=== PATIENT | female | born 1995 | race Caucasian/White ===

== ENCOUNTER 2018-01-25 12:00 | Emergency (ER) | payer SELFPAY ==
[~2018-01-25 12:00] MED LIST: ACET500C13 PO; BACL20TA PO; CEPH500C PO; FAMO20TA5 PO; LISD40CA3 PO; LORA10TA56 PO; PRED20TA PO; SERT50TA PO; TRM50T PO
--- OUTSIDE RECORDS SUMMARY | 2018-01-26 16:17 | XMS REPORT ---
Author Author MELINA THOMAS Organization [facility] Address [address] [place] [address] Care Team Providers Care Plant Engineering Supervisor Name Role Phone MELINA THOMAS Unavailable PROBLEMS Unknown Problems ALLERGIES Substance Reaction Event Type Date Status Latex Gloves rash Drug Allergy Jul, Active SOCIAL HISTORY No smoking Hx information available PLAN OF CARE Activity Details Follow Up 1 Year Reason:WWE VITAL SIGNS Height 60 in 2016-07-24 Weight 125.7 lbs 2016-07-24 Temperature 98.6 degrees Fahrenheit 2016-07-24 Heart Rate 91 bpm 2016-07-24 Respiratory Rate 20 2016-07-24 BMI 24.55 kg/m2 2016-07-24 Blood pressure systolic 112 mmHg 2016-07-24 Blood pressure diastolic 60 mmHg 2016-07-24 MEDICATIONS Medication Instructions Dosage Frequency Start Date End Date Duration Status Diflucan 150 MG Orally x1, may repeat in 72 hrs if symptoms do not resolve 1 tablet Jul, 1 dose Active Probiotic Orally Once a day 1 cap 24h Active RESULTS Name Result Date Reference Range TRICHOMONAS (IN HOUSE) 2016-07-24 TRICHOMONAS negative Control + Lot # [id number] Exp date 03/2017 BACTERIAL VAGINOSIS (IN HOUSE) 2016-07-24 RESULTS negative Control Lot # [id number] Exp date 05/2019 CULTURE, GENITAL 2016-07-24 Genital Culture, Routine Final report Result 1 PDF Report 2016-07-24 PDF Report1 LCLS PAP TEST, HPV IF ASCUS 2016-07-24 DIAGNOSIS: Specimen adequacy: Clinician provided ICD10: Performed by: . . Pathologist provided ICD10: Note: . PROCEDURES Procedure Date Ordered Related Diagnosis Body Site SPECIMEN HANDLING Jul 24, 2016 BAUTISTA VAG, DNA, DIR PROBE Jul 24, 2016 No Charge Jul 24, 2016 TRICHOMONAS ASSAY W/OPTIC Jul 24, 2016 Preventive Care Est Pt. Age 18-39 Jul 24, 2016 CULTURE, BACTERIA, OTHER Jul 24, 2016 IMMUNIZATIONS No Known Immunizations
--- OUTSIDE RECORDS SUMMARY | 2018-01-26 16:17 | XMS REPORT ---
Author Author MELINA THOMAS [facility] eClinicalWorks Address Unknown Phone Unavailable Care Team Providers Care Senior Principal Software Engineer Name Role Phone MELINA THOMAS Unavailable Allergies No Known Allergies Problems No Known Problems Medications Medication Code System Code Instructions Start Date End Date Status Dosage Flagyl [facility] [address]-54 500 MG Orally 2 times a day Jul 31, 2016 Aug 07, 2016 1 tablet Results No Known Results Summary Purpose eClinicalWorks Submission
--- OUTSIDE RECORDS SUMMARY | 2018-01-26 16:17 | XMS REPORT | Continuity of Care Document ---
Author Author [facility] Organization [facility] Address Unknown Phone Unavailable Allergies Active Description Code Type Severity Reaction Onset Reported/Identified Relationship to Patient Clinical Status Yes No Known Drug Allergies [id number] Drug Allergy Unknown N/A 07/06/2010 Yes latex [id number] Drug Allergy Unknown N/A 10/07/2014 Medications There is no data. Problems Date Dx Coded Attending Type Code Diagnosis Diagnosed By 07/06/2010 Ot 842.10 07/06/2010 Ot 959.5 07/06/2010 Ot E000.8 07/06/2010 Ot E849.6 07/06/2010 Ot E928.8 12/08/2012 Ot 891.0 12/08/2012 Ot 924.11 12/08/2012 Ot E000.8 12/08/2012 Ot E849.0 12/08/2012 Ot E968.8 Procedures There is no data. Results There is no data. Encounters ACCT No. Visit Date/Time Discharge Status Pt. Type Provider Facility Loc./Unit Complaint [id number] 10/07/2014 12:51:00 10/07/2014 15:28:00 DIS Emergency JUDY BURT [facility] ER [id number] 12/08/2012 14:18:00 Document Registration [id number] 07/06/2010 10:15:00 Document Registration [id number] 12/04/2017 15:25:00 12/04/2017 23:59:59 CLS Outpatient [id number] 10/15/2014 09:34:27 ACT Document Registration
--- OUTSIDE RECORDS SUMMARY | 2018-01-26 16:17 | XMS REPORT ---
Author MELINA Perez [facility] eClinicalWorks Address Unknown Phone Unavailable Care Team Providers Care Shade Hanger Name Role Phone MELINA THOMAS CP Unavailable Allergies, Adverse Reactions, Alerts Substance Reaction Event Type Latex Gloves rash Drug Allergy Problems Problem Type Condition Code Onset Dates Condition Status Assessment Vaginal discharge N89.8 Active Assessment Screen for STD (sexually transmitted disease) Z11.3 Active Assessment Unprotected sexual intercourse Z72.51 Active Medications Medication Code System Code Instructions Start Date End Date Status Dosage Probiotic [facility] [address] Orally Once a day 1 cap Procedures Procedure Coding System Code Date TRICHOMONAS ASSAY W/OPTIC CPT-4 42211 Jul 05, 2016 CULTURE, BACTERIA, OTHER CPT-4 07027 Jul 05, 2016 URINE TEST CPT-4 47047 Jul 05, 2016 Office Visit, New Pt., Level 3 CPT-4 54291 Jul 05, 2016 No Charge CPT-4 22978 Jul 05, 2016 Vital Signs Date/Time: Jul 05, 2016 Cardiac Monitoring Heart Rate 76 bpm Weight 126.2 lbs Height 60 in BMI 24.64 Index Blood Pressure Diastolic 72 mmHg Blood Pressure Systolic 116 mmHg Results Name Result Date Reference Range Unit Abnormality Flag CULTURE, GENITAL ----Genital Culture, Routine Final report [id number] TEST, URINE (IN HOUSE) ----RESULTS negative [id number] ----Lot # [id number] ----Control + [id number] ----Exp date 20160705 TRICHOMONAS (IN HOUSE) ----Exp date 20160705 ----Control + [id number] ----Lot # [id number] ----TRICHOMONAS negative [id number] Summary Purpose eClinicalWorks Submission
== END 2018-01-25 12:55 | disposition left against medical advice (07) ==
LOC: EDUNIT# 12:00 → ER 12:02
DX: N94.9 Unspecified condition associated with female genital organs and menstrual cycle (principal)

== ENCOUNTER 2018-12-02 13:44 | Emergency (ER) | payer SELFPAY ==
[~2018-12-02] VITALS: Ht 149.9 cm; Wt 54.9 kg
--- NOTE | 2018-12-02 14:13 | ED GU-Female ---
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 PT IS HERE TODAY TO GET TESTED. PT DOES REPORT FOUL SMELLING DISCHARGE. Nursing Sepsis Screen: No Definite Risk Source: patient Exam Limitations: no limitations History of Present Illness Date Seen by Provider: Dec 02, 2018 Time Seen by Provider: 13:58 Initial Comments Patient presents to ER by private conveyance with chief complaint that her boyfriend of the last month has came to her telling her she might need to get checked out. She's been having for 3-4 days now a milky white frothy discharge. She says she's had malodor. In the past she's had gonorrhea. She recently moved down here from [place] and had a pelvic exam and Pap smear within the last 2 years. She said the results for Pap smear were normal. She has no allergies to antibiotics. No dysuria fevers chills abdominal pain or nausea. Allergies and Home Medications Allergies Coded Allergies: latex (Unverified Allergy, Unknown, 10/07/14) Home Medications Cephalexin Monohydrate 500 Mg Capsule, 1 EACH PO TID Prescribed by: JUDY REYNOLDS on 12/08/12 1544 Famotidine 20 Mg Tablet, 1 EACH PO BID Prescribed by: JUDY REYNOLDS on 10/07/14 1516 Prednisone 20 Mg Tablet, 40 MG PO DAILY Prescribed by: JUDY REYNOLDS on 10/07/14 1516 Tramadol Hcl 50 Mg Tab, 50 MG PO Q4H Prescribed by: JUDY REYNOLDS on 12/08/12 1544 Patient Home Medication List Home Medication List Reviewed: Yes Review of Systems Review of Systems Constitutional: No chills, No diaphoresis EENTM: No ear discharge, No ear pain Respiratory: No cough, No phlegm Gastrointestinal: No abdominal pain, No nausea, No vomiting Genitourinary: see HPI; denies burning; discharge; denies dysuria Musculoskeletal: No back pain, No joint pain Past Udrdlrw-Agzylx-Xscdib Hx Patient Social History Alcohol Use: Rarely Uses Recreational Drug Use: No Smoking Status: Current Everyday Smoker Type Used: Cigarettes Recent Foreign Travel: No Contact w/Someone Who Travel: No Recent Infectious Disease Expo: No Recent Hopitalizations: No Immunizations Up To Date Tetanus Booster (TDap): Less than 5yrs Seasonal Allergies Seasonal Allergies: No Past Medical History Surgeries: Yes Adenoidectomy, Tonsillectomy Respiratory: No Cardiac: No Neurological: No Reproductive Disorders: No Sexually Transmitted Disease: Yes (HX OF GONORRHEA) Genitourinary: No Gastrointestinal: No Musculoskeletal: No Endocrine: No HEENT: No Cancer: No Psychosocial: No Integumentary: No Blood Disorders: No Family Medical History No Pertinent Family Hx Physical Exam Vital Signs Vital Signs - First Documented 12/02/18 13:53 Temp 97.1 Pulse 100 Resp 16 B/P (MAP) 118/79 (92) Pulse Ox 99 Capillary Refill : Less Than 3 Seconds Height, Weight, BMI Height: 4'11.00" Weight: 121lbs. oz. 54.831280ok; BMI Method:Stated General Appearance: WD/WN, no apparent distress Cardiovascular: normal peripheral pulses, regular rate, rhythm Respiratory: no respiratory distress, no accessory muscle use Gastrointestinal: non tender, soft Pelvic: normal external exam, no masses, discharge (clear white milky, thin); No vaginal bleeding Progress/Results/Core Measures Suspected Sepsis Recent Fever Within 48 Hours: No Infection Criteria Present: None New/Unexplained Altered Menta: No Sepsis Screen: No Definite Risk SIRS Temperature:97.1 Pulse: 100 Respiratory Rate: 16 Blood Pressure 118 /79 Mean: 92 Results/Orders Lab Results Laboratory Tests Test 12/02/18 14:04 Range/Units Micro Results Microbiology 12/02/18 Wet Prep - Final, Complete My Orders Orders - JANIS CAMPBELL Wet Prep (12/02/18 14:04) Neisseria Gonorrhea Swab (12/02/18 14:04) Chlamydia Trachomatis Swab (12/02/18 14:04) Ceftriaxone For Im Use (Rocephin For Im (12/02/18 14:15) Azithromycin Tablet (Zithromax Tablet) (12/02/18 14:15) Lidocaine 1% Inj 20 Ml (Xylocaine 1% Inj (12/02/18 14:15) Medications Given in ED Current Medications Medications Dose Ordered Sig/Tripp Route Start Time Stop Time Status Last Admin Dose Admin Azithromycin 1,000 mg ONCE ONCE PO 12/02/18 14:15 12/02/18 14:17 DC 12/02/18 14:24 1,000 MG Ceftriaxone Sodium 250 mg ONCE ONCE IM 12/02/18 14:15 12/02/18 14:17 DC 12/02/18 14:28 250 MG Lidocaine HCl 0.9 ml ONCE ONCE INJ 12/02/18 14:15 12/02/18 14:17 DC 12/02/18 14:28 0.9 ML Vital Signs/I&O 12/02/18 13:53 Temp 97.1 Pulse 100 Resp 16 B/P (MAP) 118/79 (92) Pulse Ox 99 Capillary Refill : Less Than 3 Seconds Blood Pressure Mean: 92 Progress Note : Time: 14:13 Progress Note Plan to treat her with Rocephin and azithromycin. Wet prep and GC chlamydia. Departure Impression Primary Impression: Bacterial vaginitis Disposition: HOME, SELF-CARE Condition: Stable Departure-Patient Inst. Decision time for Depature: 14:36 Referrals: NO,LOCAL PHYSICIAN (PCP/Family) Primary Care Physician Patient Instructions: Bacterial Vaginosis (DC) Add. 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 We will call you if any of the other tests come back positive in the next 3-5 days. All discharge instructions reviewed with patient and/or family. Voiced understanding. Scripts Metronidazole (Metronidazole) 500 Mg Tablet 500 MG PO BID for 7 Days, #14 TAB 0 Refills Prov: JANIS CAMPBELL 12/02/18 JANIS CAMPBELL Dec 02, 2018 14:13
[2018-12-02] MEDS ORDERED: LIDOCAINE 1% INJ 20 ML 20 ML VIAL INJ ONE (14:15)
[2018-12-02] MEDS ORDERED: cefTRIAXone 250 MG/ML vial (IM ONLY) IM ONE (14:15)
[2018-12-02] MEDS ORDERED: AZITHROMYCIN 250 MG TAB (ZITHROMAX) PO ONE (14:15)
[2018-12-02] MEDS ORDERED: METR-145 PO (14:41)
[2018-12-02 14:43] VITALS: BP 118/79
== END 2018-12-02 14:43 | disposition home or self-care (01) ==
LOC: EDUNIT# 13:44 → ER 13:45
DX: N76.0 Acute vaginitis (principal); F17.210 Nicotine dependence, cigarettes, uncomplicated; Z90.89 Acquired absence of other organs; Z91.040 Latex allergy status
CPT/HCPCS: 36415; 87210; 87491; 87591; 99284

== ENCOUNTER 2019-01-05 13:09 | Emergency (ER) | payer SELFPAY ==
[~2019-01-05] VITALS: Ht 152.4 cm; Wt 54.4 kg
[~2019-01-05 13:09] MED LIST changes: +METR-145 PO
--- NOTE | 2019-01-05 13:35 | ED GU-Female ---
General Chief Complaint: HIDE STRETCHER HAND Stated Complaint: STD TESTING Nursing Triage Note: PT STATED SHE FEELS LIKE SHE NEEDS TESTED FOR STDS. PT STATES SHE HAS DISCHARGE THAT STARTED TWO DAYS AGO AND SLIGHT PAIN IN ABD. Nursing Sepsis Screen: No Definite Risk Source: patient Exam Limitations: no limitations History of Present Illness Date Seen by Provider: Jan 05, 2019 Time Seen by Provider: 13:30 Initial Comments To ER per private vehicle with reports of vaginal discharge and some slight suprapubic discomfort. She had sexual intercourse with her ex-boyfriend 2-3 days ago, states that he told her he had been tested and did not have any STD. She states she was here about a month ago for the same thing and would like to be treated for whatever she tested for then. Timing/Duration: just prior to arrival Severity/Quality: mild Location: suprapubic Activities at Onset: none Associated Symptoms: denies symptoms Allergies and Home Medications Allergies Coded Allergies: latex (Unverified Allergy, Unknown, 12/02/18) Home Medications Cephalexin Monohydrate 500 Mg Capsule, 1 EACH PO TID Prescribed by: JUDY REYNOLDS on 12/08/12 1544 Famotidine 20 Mg Tablet, 1 EACH PO BID Prescribed by: JUDY REYNOLDS on 10/07/14 1516 Metronidazole 500 Mg Tablet, 500 MG PO BID Prescribed by: JANIS CAMPBELL on 12/02/18 1441 Prednisone 20 Mg Tablet, 40 MG PO DAILY Prescribed by: JUDY REYNOLDS on 10/07/14 1516 Tramadol Hcl 50 Mg Tab, 50 MG PO Q4H Prescribed by: JUDY REYNOLDS on 12/08/12 1544 Patient Home Medication List Home Medication List Reviewed: Yes Review of Systems Review of Systems Constitutional: see HPI EENTM: see HPI Respiratory: no symptoms reported Cardiovascular: no symptoms reported Genitourinary: no symptoms reported Musculoskeletal: no symptoms reported Skin: no symptoms reported Psychiatric/Neurological: No Symptoms Reported Endocrine: No Symptoms Reported Hematologic/Lymphatic: No Symptoms Reported Past Fdpuvii-Astqij-Pgxffy Hx Patient Social History Alcohol Use: Denies Use Recreational Drug Use: No Smoking Status: Current Everyday Smoker Type Used: Cigarettes Recent Foreign Travel: No Contact w/Someone Who Travel: No Recent Infectious Disease Expo: No Recent Hopitalizations: No Immunizations Up To Date Tetanus Booster (TDap): Less than 5yrs Seasonal Allergies Seasonal Allergies: No Past Medical History Surgeries: Yes Adenoidectomy, Tonsillectomy Respiratory: No Cardiac: No Neurological: No Reproductive Disorders: No Sexually Transmitted Disease: Yes (HX OF GONORRHEA) Genitourinary: No Gastrointestinal: No Musculoskeletal: No Endocrine: No HEENT: No Cancer: No Psychosocial: No Integumentary: No Blood Disorders: No Family Medical History No Pertinent Family Hx Physical Exam Vital Signs Vital Signs - First Documented 01/05/19 13:13 Temp 98.9 Pulse 114 Resp 20 B/P (MAP) 101/75 (84) Pulse Ox 98 O2 Delivery Room Air Capillary Refill : Less Than 3 Seconds Height, Weight, BMI Height: 5'0" Weight: 120lbs. oz. 54.016754ev; BMI Method:Stated General Appearance: WD/WN, no apparent distress HEENT: PERRL/EOMI, normal ENT inspection Respiratory: normal breath sounds, no respiratory distress, no accessory muscle use Neurologic/Psychiatric: alert, normal mood/affect, oriented x 3 Skin: normal color, warm/dry Progress/Results/Core Measures Suspected Sepsis Recent Fever Within 48 Hours: No Infection Criteria Present: None New/Unexplained Altered Menta: No Sepsis Screen: No Definite Risk SIRS Temperature:98.9 Pulse: 114 Respiratory Rate: 20 Blood Pressure 101 /75 Mean: 84 Results/Orders Lab Results Laboratory Tests Test 01/05/19 13:30 01/05/19 13:45 Range/Units Micro Results Microbiology 01/05/19 Genital Culture, Resulted Pending 01/05/19 Wet Prep - Final, Resulted My Orders Orders - JORGE PURCELL APRN Ua Culture If Indicated (01/05/19 13:18) Urine Bedside (01/05/19 13:18) Wet Prep (01/05/19 13:18) Neisseria Gonorrhea Swab (01/05/19 13:18) Genital Culture (01/05/19 13:18) Chlamydia Trachomatis Swab (01/05/19 13:18) Azithromycin Tablet (Zithromax Tablet) (01/06/19 09:00) Ceftriaxone For Im Use (Rocephin For Im (01/05/19 14:30) Lidocaine 1% Inj 20 Ml (Xylocaine 1% Inj (01/05/19 14:30) Vital Signs/I&O 01/05/19 13:13 Temp 98.9 Pulse 114 Resp 20 B/P (MAP) 101/75 (84) Pulse Ox 98 O2 Delivery Room Air Capillary Refill : Less Than 3 Seconds Blood Pressure Mean: 84 Departure Communication (Admissions) 1332-patient is hostile during her stay, initially states she does not want a pelvic exam she just wants treatment for the STD. Advised her that I cannot treat her if I do not examine her. She states "I just want treatment and to get the fuck out of here, last time I was here it was fast, and I know they can do it". Refuses to allow pelvic exam, states that she will self swab. Discussed with her that after positive urine test was checked serum hCG level and ultrasound given that she has abdominal pain. She states that she does not want this done and she'll follow-up with [facility] to have this done outpatient. Impression Primary Impression: test positive Disposition: HOME, SELF-CARE Condition: Stable Departure-Patient Inst. Decision time for Depature: 13:54 Referrals: CANDY MCALLISTER MD NO,LOCAL PHYSICIAN (PCP) Primary Care Physician Patient Instructions: Sexually-Transmitted Diseases (DC) Add. Discharge Instructions: 1. Follow-up with [facility] to have labs and ultrasound done to further evaluate the . Return to ER any concerns such as lightheadedness pain or fever.. All discharge instructions reviewed with patient and/or family. Voiced understanding. JORGE PURCELL APRN Jan 05, 2019 13:35
--- NOTE | 2019-01-05 13:35 | NUR ---
PT SIGNED REFUSAL FOR PELVIC EXAM, REQUESTED TO DO SELF SWAB
--- NOTE | 2019-01-05 13:53 | NUR ---
PT INFORMED OF +PREG TEST, STATES PERIOD APPROX 1 MONTH AGO. STATES WILL GO TO [facility] FOR FOLLOW FOR FURTHER TESTING
[2019-01-05 14:00] LABS: BILIRUBIN,URINE NEGATIVE (NEGATIVE); CLARITY,URINE SLIGHTLY CLOUDY; COLOR,URINE YELLOW; GLUCOSE, URINE (UA) NEGATIVE (NEGATIVE); KETONES,URINE NEGATIVE (NEGATIVE); LEUKOCYTE ESTERASE ,URINE NEGATIVE (NEGATIVE); NITRITE,URINE NEGATIVE (NEGATIVE); PH,URINE 6 (5-9); PROTEIN,URINE NEGATIVE (NEGATIVE); UROBILINOGEN,URINE NORMAL (NORMAL)
[2019-01-05 14:22] LABS: AMORPHOUS SEDIMENT,UR FEW AMOR URATES /LPF; BACTERIA,URINE NEGATIVE /HPF; WBC,URINE 0-2 /HPF
[2019-01-05] MEDS ORDERED: AZITHROMYCIN 250 MG TAB (ZITHROMAX) PO ONE (14:24)
[2019-01-05] MEDS ORDERED: cefTRIAXone 1,000 MG/2.86 ml vial (IM ONLY) IM SCH (14:30)
[2019-01-05] MEDS ORDERED: LIDOCAINE 1% INJ 20 ML 20 ML VIAL INJ ONE (14:30)
[2019-01-05 14:35] VITALS: BP 101/75
[2019-01-06] MEDS ORDERED: AZITHROMYCIN 250 MG TAB (ZITHROMAX) PO SCH (09:00)
== END 2019-01-05 14:45 | disposition home or self-care (01) ==
LOC: EDUNIT# 13:09 → ER 13:10
DX: N89.8 Other specified noninflammatory disorders of vagina (principal); F17.210 Nicotine dependence, cigarettes, uncomplicated; Z32.01 Encounter for pregnancy test, result positive; Z90.89 Acquired absence of other organs; Z91.040 Latex allergy status; Z79.52 Long term (current) use of systemic steroids; Z86.19 Personal history of other infectious and parasitic diseases
CPT/HCPCS: 36415; 81000; 84703; 87070; 87077; 87205; 87210; 87491; 87591; 96372; 99284

== ENCOUNTER 2019-01-28 11:06 | Emergency (ER) | payer SELFPAY ==
[~2019-01-28] VITALS: Ht 152.4 cm; Wt 54.4 kg
[~2019-01-28 11:06] MED LIST changes: +METR500T PO
--- NOTE | 2019-01-28 11:19 | ED General ---
General Stated Complaint: DATES Source of Information: Patient Exam Limitations: No Limitations (SRIRAM HUDSON MD) History of Present Illness Date Seen by Provider: January 28, 2019 Time Seen by Provider: 11:16 Initial Comments Here with report of being and being concerned about dates. She is unable to get appointment with [facility] for several weeks. Denies abdominal pain, nausea, vomiting or other problems including vaginal discharge or bleeding. 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 Timing/Duration: Constant, Other (believes she is approximately 10 weeks ) Severity: Mild Associated Systoms: No Fever/Chills, No Nausea/Vomiting, No Shortness of Air (SRIRAM HUDSON MD) Allergies and Home Medications Allergies Coded Allergies: latex (Unverified Allergy, Unknown, 12/02/18) Home Medications Cephalexin Monohydrate 500 Mg Capsule, 1 EACH PO TID Prescribed by: JUDY REYNOLDS on 12/08/12 1544 Famotidine 20 Mg Tablet, 1 EACH PO BID Prescribed by: JUDY REYNOLDS on 10/07/14 1516 Metronidazole 500 Mg Tablet, 500 MG PO BID Prescribed by: JANIS CAMPBELL on 12/02/18 1441 Metronidazole 500 Mg Tablet, 500 MG PO BID, (Reported) Prednisone 20 Mg Tablet, 40 MG PO DAILY Prescribed by: JUDY REYNOLDS on 10/07/14 1516 Tramadol Hcl 50 Mg Tab, 50 MG PO Q4H Prescribed by: JUDY REYNOLDS on 12/08/12 1544 Patient Home Medication List Home Medication List Reviewed: Yes (SRIRAM HUDSON MD) Review of Systems Review of Systems Constitutional: see HPI; No chills, No fever Respiratory: no symptoms reported Cardiovascular: no symptoms reported Gastrointestinal: no symptoms reported : Yes Expected Date of Delivery: Sep 01, 2019 LMP: Nov 08, 2018 Musculoskeletal: no symptoms reported (SRIRAM HUDSON MD) Past Xoyvbdj-Ukqdyi-Uloaeu Hx Past Med/Social Hx: Reviewed Nursing Past Med/Soc Hx (SRIRAM HUDSON MD) Patient Social History Type Used: Cigarettes Recent Foreign Travel: No Contact w/Someone Who Travel: No Recent Hopitalizations: No (JORGE PURCELL APRN) Alcohol Use: Denies Use Recreational Drug Use: No Smoking Status: Current Everyday Smoker (SRIRAM HUDSON MD) Immunizations Up To Date Tetanus Booster (TDap): Less than 5yrs (JORGE PURCELL APRN) Seasonal Allergies Seasonal Allergies: No (JORGE PURCELL APRN) Past Medical History Surgeries: Yes Adenoidectomy, Tonsillectomy Respiratory: No Cardiac: No Neurological: No Reproductive Disorders: No Sexually Transmitted Disease: Yes (HX OF GONORRHEA) Genitourinary: No Gastrointestinal: No Musculoskeletal: No Endocrine: No HEENT: No Cancer: No Psychosocial: No Integumentary: No Blood Disorders: No (JORGE PURCELL APRN) Family Medical History Reviewed Nursing Family Hx (SRIRAM HUDSON MD) No Pertinent Family Hx (JORGE PURCELL APRN) Physical Exam Vital Signs Vital Signs - First Documented 01/28/19 11:20 Temp 97.6 Pulse 97 Resp 18 B/P (MAP) 118/77 (91) Pulse Ox 99 O2 Delivery Room Air (SRIRAM HUDSON MD) Vital Signs Capillary Refill : (JORGE PURCELL APRN) Height, Weight, BMI Height: 5'0" Weight: 120lbs. oz. 54.360402jf; BMI Method:Stated (JORGE PURCELL APRN) General Appearance: No Apparent Distress, WD/WN Respiratory: Chest Non Tender, Lungs Clear, Normal Breath Sounds Cardiovascular: Regular Rate, Rhythm, No Murmur Gastrointestinal: Non Tender, Soft Neurologic/Psychiatric: Alert, Oriented x3 Skin: Normal Color, Warm/Dry (SRIRAM HUDSON MD) Progress/Results/Core Measures Suspected Sepsis SIRS Temperature: Pulse: Respiratory Rate: Blood Pressure / Mean: (JORGE PURCELL APRN) Results/Orders Vital Signs/I&O 01/28/19 11:20 Temp 97.6 Pulse 97 Resp 18 B/P (MAP) 118/77 (91) Pulse Ox 99 O2 Delivery Room Air (SRIRAM HUDSON MD) Vital Signs/I&O Capillary Refill : (JORGE PURCELL APRN) Progress Note : Progress Note Seen and evaluated. Bedside ultrasound performed. That does show positive movement with heart tones of 165 and 9-3/7 by crown-rump length. This would make EDC of 09/01/19. Appointment made with [facility] and a copy of the chart will be sent to them. Discharged home with return precautions. Patient verbalize understanding instructions and agreement with plan. (SRIRAM HUDSON MD) Departure Impression Primary Impression: Qualified Codes: Z34.90 - Encounter for supervision of normal , unspecified, unspecified trimester Disposition: HOME, SELF-CARE Condition: Against Medical Advice Departure-Patient Inst. Decision time for Depature: 11:18 (JORGE PURCELL APRN) Referrals: NO,LOCAL PHYSICIAN (PCP) Primary Care Physician Patient Instructions: Weight Gain During Add. Discharge Instructions: 1. Return to ER for any concerns 2. Follow-up with your doctor as scheduled 3. You have appointment with Dr. Mcallister on February 24 at 2:20 PM. Please keep his appointment Copy Copies To 1: CANDY MCALLISTER MD, PETER J APRN January 28, 2019 11:19 SRIRAM HUDSON MD January 28, 2019 11:43
[2019-01-28 11:56] VITALS: BP 118/77
== END 2019-01-28 11:57 | disposition home or self-care (01) ==
LOC: EDUNIT# 11:06 → ER 11:07
DX: Z34.81 Encounter for supervision of other normal pregnancy, first trimester (principal); O99.331 Smoking (tobacco) complicating pregnancy, first trimester; F17.210 Nicotine dependence, cigarettes, uncomplicated; Z87.59 Personal history of other complications of pregnancy, childbirth and the puerperium; Z3A.10 10 weeks gestation of pregnancy; Z90.89 Acquired absence of other organs; Z86.19 Personal history of other infectious and parasitic diseases; Z91.040 Latex allergy status; Z79.52 Long term (current) use of systemic steroids

== ENCOUNTER 2019-07-03 14:40 | Outpatient (CLI) | payer SELFPAY ==
[~2019-07-03] VITALS: Ht 152.4 cm; Wt 65.9 kg
--- NOTE | 2019-07-03 14:30 | NUR ---
MARICHUY ROBLERO presented to unit via W/C from ED, accompanied by FAMILY, with c/o ABD PAIN. MARICHUY ROBLERO weighed, gowned, voided, and to bed. EFHM and TOCO applied, VS taken. MARICHUY ROBLERO oriented to bed controls, call light, TV, heat, and A/C controls.
--- NOTE | 2019-07-03 14:34 | NUR ---
monitors applied, abd soft non-tender, no vaginal bleeding or leaking reported. pt in bed unable to stay still in bed. requests something to drink. rn's discussed plan of care and need for assessment prior to oral fluids. 1442 pt reports left flank pain that wraps to lower left abdomen, tender in left flank area to touch. rn asked pt if she is able to void. pt states "I need fluids in my body before I can pee." small cup of ice water given, pt takes a few sips and up to bathroom. Lalo Roblero unplugging monitors and placing monitors draped behind neck to go to bathroom pt states "your putting those cords around my neck, I don't think so, you are being a fucking bitch." Pt out of bed dragging monitors cords on floor. 1445 pt back to bed. monitors resumed. pt continues to be restless in bed moving from right to left side position rns remain at bedside attempting to assess pt, obtain fhr tracing. Pt is uncooperative. this rn continues to palpate abd for contractions-abd remains soft no contractions palpated
[2019-07-03 14:45] VITALS: BP 185/139
[2019-07-03 14:53] LABS: BILIRUBIN,URINE NEGATIVE (NEGATIVE); CLARITY,URINE VERY CLOUDY; COLOR,URINE YELLOW; GLUCOSE, URINE (UA) NEGATIVE (NEGATIVE); KETONES,URINE NEGATIVE (NEGATIVE); LEUKOCYTE ESTERASE ,URINE 1+ (NEGATIVE); NITRITE,URINE NEGATIVE (NEGATIVE); PH,URINE 6.5 (5-9); PROTEIN,URINE 2+ (NEGATIVE)
[2019-07-03 15:04] LABS: BACTERIA,URINE FEW /HPF
[2019-07-03 15:05] LABS: AMORPHOUS SEDIMENT,UR MOD AMOR URATES /LPF
[2019-07-03 15:06] LABS: AMPHETAMINE SCREEN, URINE NEGATIVE (NEGATIVE); BARBITURATE SCREEN URINE NEGATIVE (NEGATIVE); BENZODIAZEPINES SCREEN URINE NEGATIVE (NEGATIVE); CANNABINOID SCREEN, URINE POSITIVE (NEGATIVE); COCAINE SCREEN URINE NEGATIVE (NEGATIVE); METHADONE STAT NEGATIVE (NEGATIVE); METHAMPHETAMINE SCREEN URINE S NEGATIVE (NEGATIVE); OPIATE SCREEN URINE NEGATIVE (NEGATIVE); OXYCODONE STAT NEGATIVE (NEGATIVE); PROPOXYPHENE STAT NEGATIVE (NEGATIVE); TRICYCLIC ANTIDEPRESSANTS SCRE NEGATIVE (NEGATIVE)
[2019-07-03] MEDS ORDERED: LACTATED RINGERS 1,000 ML IV SCH (15:15)
[2019-07-03] MEDS ORDERED: HYDROcodone/APAP 5 MG/325 MG (LORTAB) TAB PO NR (15:15)
--- NOTE | 2019-07-03 15:16 | NUR ---
Dr Loredo called and notified of pt arrival, gestation, edc per pt statement, no prenatals available. pt reports has seen Dr Mccormack a couple times but not consistently. pt thrashing in bed, side to side, reports bp cuff is "fucking bruising me." "I fucking hurt, what's wrong." RN's at bedside reviewing plan of care with pt. rn requesting to start IV to draw labs due to pt's pain level and bp noted. pt states "I don't need fucking labs drawn." pt non-compliant with assessments and rn interventions. 2 family members at bedside.
[2019-07-03] MEDS ORDERED: HYDROcodone/APAP 5 MG/325 MG (LORTAB) TAB ONE (15:18)
[2019-07-03] MEDS ORDERED: LACTATED RINGERS 1,000 ML IV ONE ×2 (15:19→18:00)
[2019-07-03 15:22] VITALS: BP 136/77
[2019-07-03 15:40] VITALS: BP 136/77
--- NOTE | 2019-07-03 15:40 | NUR ---
Warm blanket to left flank area and pt lying on left side and appears less restless.
[2019-07-03 15:47] LABS: BASOPHILS % (AUTO) 0 % (0-10); EOSINOPHILS # (AUTO) 0.2 10^3/uL (0.0-0.3); EOSINOPHILS % (AUTO) 1 % (0-10); HEMATOCRIT 31 % (35-52); HEMOGLOBIN 10.7 G/DL (11.5-16.0); LYMPHOCYTES # (AUTO) 2.2 X 10^3 (1.0-4.0); LYMPHOCYTES % (AUTO) 15 % (12-44); MEAN CORPUSCULAR HEMOGLOBIN 32 PG (25-34); MEAN CORPUSCULAR HGB CONC 35 G/DL (32-36); MEAN CORPUSCULAR VOLUME 91 FL (80-99); MEAN PLATELET VOLUME 9.7 FL (7.4-10.4); MONOCYTES # (AUTO) 0.7 X 10^3 (0.0-1.0); MONOCYTES % (AUTO) 5 % (0-12); NEUTROPHILS # (AUTO) 11.5 X 10^3 (1.8-7.8); NEUTROPHILS % (AUTO) 79 % (42-75); PLATELET COUNT 330 10^3/uL (130-400); RED CELL DISTRIBUTION WIDTH 12.7 % (10.0-14.5); WHITE BLOOD COUNT 14.5 10^3/uL (4.3-11.0)
[2019-07-03 16:04] LABS: ALANINE AMINOTRANSFERASE 14 U/L (0-55); ALBUMIN 3.5 GM/DL (3.2-4.5); ALKALINE PHOSPHATASE 80 U/L (40-136); BILIRUBIN,TOTAL 0.1 MG/DL (0.1-1.0); BUN/CREATININE RATIO 13; CALCIUM 10.3 MG/DL (8.5-10.1); CARBON DIOXIDE 18 MMOL/L (21-32); CHLORIDE 105 MMOL/L (98-107); GFR ESTIMATED > 60; GLUCOSE 88 MG/DL (70-105); POTASSIUM 3.4 MMOL/L (3.6-5.0); SODIUM 137 MMOL/L (135-145); TOTAL PROTEIN 6.3 GM/DL (6.4-8.2)
--- NOTE | 2019-07-03 16:05 | NUR ---
up to bathroom with assist and back to bed.
[2019-07-03 16:14] LABS: BAND NEUTROPHILS 0 %; BASOPHILS % (MANUAL) 1 %; EOSINOPHILS % (MANUAL) 3 %; LYMPHOCYTES % (MANUAL) 8 %; MONOCYTES % (MANUAL) 5 %; NEUTROPHILS % (MANUAL) 83 %
[2019-07-03 16:15] LABS: RBC MORPH NORMAL
[2019-07-03] MEDS ORDERED: cefTRIAXone FOR IV USE 1,000 MG in WATER (STERILE) FOR INJECTION 10 ML IV NR (16:15)
[2019-07-03] MEDS ORDERED: fentaNYL INJECTION 100 MCG/2 ML AMP IVP NR (16:15)
--- NOTE | 2019-07-03 16:18 | NUR ---
Dr Loredo called and notified of bp obtained, fhr pattern, no contractions noted or palpated, pt has urge to void but states "I can't". voided in bed
[2019-07-03] MEDS ORDERED: cefTRIAXone 1,000 MG IV (ROCEPHIN) VIAL ONE (16:21)
[2019-07-03] MEDS ORDERED: WATER (STERILE) FOR INJECTION 10 ML ONE (16:21)
[2019-07-03] MEDS ORDERED: fentaNYL INJECTION 100 MCG/2 ML AMP ONE (16:21)
[2019-07-03 16:30] VITALS: BP 125/78
--- NOTE | 2019-07-03 17:23 | NUR ---
RN to bedside. pt lying on left side. reports "some left back pain still." reports as tolerable pain at this time. states she is hungry.
--- NOTE | 2019-07-03 17:57 | NUR ---
up to bathroom, back to bed. warm blanket given to pt to place on left back/side.
--- NOTE | 2019-07-03 18:38 | NUR ---
Dr tafoya called and updated on pain medication helping for a couple hours but pt now requests more pain medication. new orders received.
[2019-07-03] MEDS: fentaNYL INJECTION 100 MCG/2 ML AMP IVP PRN ×4 (18:46→23:24)
--- NOTE | 2019-07-03 20:15 | NUR ---
DR QURESHI CALLED TO REPORT THAT PT PAIN IS NOT CONTROLLED. ORDER TO CHANGE FENTANYL TO Q1HR.
--- NOTE | 2019-07-03 20:25 | NUR ---
PT WRITHING IN PAIN. FENTANYL GIVEN.
[2019-07-03] MEDS: LACTATED RINGERS 1,000 ML IV SCH (21:06)
[2019-07-03 22:35] VITALS: BP 122/76
--- NOTE | 2019-07-03 23:24 | NUR ---
PT USING CALL LIGHT EVERY 20-30 MIN ASKING WHEN NEXT DOSE OF PAIN MEDS ARE DUE. PT STATES PAIN REMAINS CONSTANT TO LEFT FLANK. FENTANYL HAS BEEN ADMINISTERED EVERY 1.5 HOURS SINCE SHIFT CHANGE. ENCOURAGED PT TO TRY TO HOLD OFF TO 2 HOURS IF POSSIBLE.
--- NOTE | 2019-07-04 00:42 | NUR ---
PT IN TEARS REQUESTING PAIN MEDS. TO BE GIVEN BY SPECIAL EDUCATION RESOURCE ROOM TEACHER, THIS NURSE IS IN A DELIVERY.
[2019-07-04] MEDS: fentaNYL INJECTION 100 MCG/2 ML AMP IVP PRN ×5 (00:43→06:45)
[2019-07-04 01:25] VITALS: BP 129/77
[2019-07-04] MEDS: LACTATED RINGERS 1,000 ML IV SCH ×2 (01:27→06:48)
--- NOTE | 2019-07-04 01:30 | NUR ---
IN TO CHECK ON PT AND REEVALUATE PAIN. PT REPORTS PAIN IS SEVERE AND WANTS TO KNOW WHEN NEXT DOSE OF PAIN MEDS IS DUE. INFORMED PT THAT IT HAD BEEN LESS THAN 45 MIN AND ANOTHER DOSE COULD NOT BE GIVEN YET.
--- NOTE | 2019-07-04 01:57 | NUR ---
PT FELL ASLEEP AND MADE IT JUST OVER AN HOUR SINCE LAST DOSE. PT WOKE UP IN SEVERE PAIN AND IS VOMITING AT THIS TIME. FENTANYL ADMINISTERED.
--- NOTE | 2019-07-04 03:17 | NUR ---
AGAIN PT AWAKENS VOMITING WITH PAIN. FENTANYL ADMINISTERED AND WILL CONTACT DR QURESHI WITH STATUS UPDATE.
--- NOTE | 2019-07-04 05:00 | NUR ---
ORDER OBTAINED FROM DR QURESHI FOR PHENERGAN PT HAS CONT TO HAVE VOMITING WITH SEVERE PAIN. WILL ADMINISTER AT THIS TIME. DR QURESHI ALSO ORDERED A ONE TIME DOSE OF LORTAB 5/325 AFTER NAUSEA IMPROVED.
[2019-07-04] MEDS ORDERED: PROMETHAZINE INJ 25 MG/ML (PHENERGAN) AMP ONE (05:04)
[2019-07-04] MEDS ORDERED: HYDROcodone/APAP 5 MG/325 MG (LORTAB) TAB ONE (06:09)
[2019-07-04] MEDS ORDERED: HYDROcodone/APAP 5 MG/325 MG (LORTAB) TAB PO ONE (06:12)
--- NOTE | 2019-07-04 06:45 | NUR ---
FENTANYL ADMINISTERED PT REPORTS NO IMPROVEMENT AFTER LORTAB.
--- NOTE | 2019-07-04 07:20 | NUR ---
PT CALLS NURSE TO ROOM. PT REPORTS HAVING PASSED A KIDNEY STONE INTO HAT. CONFIRMED STONE APPROXIMATELY 3MM X 2MM STONE IN URINE. PT REPORTS PAIN IS NEARLY RESOLVED AT THIS TIME. DR QURESHI NOTIFIED.
--- NOTE | 2019-07-04 07:25 | NUR ---
up ambulating back to bed reports passing a stone. RN strained urine. kidney stone present. patient smiling and talking reports relief of pain with passing.
--- NOTE | 2019-07-04 07:50 | NUR ---
dr tafoya here. reviewed resolve of pain with passing of stone. orders to d/ c home received with follow up this week.
--- NOTE | 2019-07-04 09:00 | NUR ---
iv out see flow sheet. reviewed home instructions. verbalized understanding.
--- NOTE | 2019-07-04 10:05 | NUR ---
out of ws via ambulation with family , with taxi service voucher. no s/s of distress noted.
== END 2019-07-04 10:05 | disposition home or self-care (01) ==
LOC: WSo 14:40 → LDRP 14:40 → WSo 07-04 10:05
PROVIDERS: ATTEND Family Medicine
DX: O99.89 Other specified diseases and conditions complicating pregnancy, childbirth and the puerperium (principal); R10.9 Unspecified abdominal pain; Z3A.00 Weeks of gestation of pregnancy not specified
CPT/HCPCS: 36415; 80053; 80306; 81000; 85007; 85027; 87088; 88300; 96361; 96374; 96375; 96376

== ENCOUNTER 2019-09-03 01:25 | Inpatient (IN) | payer OTHER ==
[2019-09-03] VITALS (32 sets, daily range): BP systolic 100–151; BP diastolic 55–96
[~2019-09-03] VITALS: Ht 152.4 cm; Wt 72.7 kg
--- NOTE | 2019-09-03 01:20 | NUR ---
MARICHUY ROBLERO presented to unit via W/C from ED, accompanied by staff, with c/o CONTRACTIONS,WATER BROKE. MARICHUY ROBLERO weighed, gowned, voided, and to bed. EFHM and TOCO applied, VS taken. MARICHUY ROBLERO oriented to bed controls, call light, TV, heat, and A/C controls.
--- NOTE | 2019-09-03 01:40 | NUR ---
Pt combative and fighting with staff, this RN sve 2-3 cm /90%/-2 STATION. Pt begging for pain pills and this RN tried to explain that we need to talk to a Doctor.
[2019-09-03 01:55] LABS: BILIRUBIN,URINE NEGATIVE (NEGATIVE); CLARITY,URINE CLEAR; COLOR,URINE YELLOW; GLUCOSE, URINE (UA) NEGATIVE (NEGATIVE); KETONES,URINE NEGATIVE (NEGATIVE); LEUKOCYTE ESTERASE ,URINE NEGATIVE (NEGATIVE); NITRITE,URINE NEGATIVE (NEGATIVE); PROTEIN,URINE NEGATIVE (NEGATIVE)
[2019-09-03] MEDS ORDERED: D5 LR IV SOLUTION 1,000 ML IV ONE (01:58)
[2019-09-03] MEDS ORDERED: morphine INJ 10 MG/ML 1ML (SYR OR VIAL) IM STA (02:00)
[2019-09-03] MEDS ORDERED: D5 LR IV SOLUTION 1,000 ML IV SCH ×2 (02:00→06:29)
[2019-09-03 02:08] LABS: BACTERIA,URINE TRACE /HPF
[2019-09-03 02:12] LABS: AMPHETAMINE SCREEN, URINE NEGATIVE (NEGATIVE); BARBITURATE SCREEN URINE NEGATIVE (NEGATIVE); BENZODIAZEPINES SCREEN URINE NEGATIVE (NEGATIVE); CANNABINOID SCREEN, URINE NEGATIVE (NEGATIVE); COCAINE SCREEN URINE NEGATIVE (NEGATIVE); METHADONE STAT NEGATIVE (NEGATIVE); METHAMPHETAMINE SCREEN URINE S NEGATIVE (NEGATIVE); OPIATE SCREEN URINE NEGATIVE (NEGATIVE); OXYCODONE STAT NEGATIVE (NEGATIVE); PROPOXYPHENE STAT NEGATIVE (NEGATIVE); TRICYCLIC ANTIDEPRESSANTS SCRE NEGATIVE (NEGATIVE)
[2019-09-03] MEDS ORDERED: fentaNYL INJECTION 100 MCG/2 ML AMP ONE ×2 (03:17→06:41)
[2019-09-03] MEDS ORDERED: WATER (STERILE) FOR INJECTION 20 ML ONE (03:18)
[2019-09-03] MEDS ORDERED: AMPICILLIN FOR IV USE 2,000 MG VIAL ONE (03:18)
[2019-09-03] MEDS ORDERED: AMPICILLIN FOR IV USE 2,000 MG in WATER (STERILE) FOR INJECTION 14.8 ML IV SCH (03:21)
[2019-09-03] MEDS: fentaNYL INJECTION 100 MCG/2 ML AMP IVP PRN ×4 (03:26→06:15)
[2019-09-03] MEDS ORDERED: OXYTOCIN/NORMAL SALINE 500 ML IV ONE ×3 (05:30→13:02)
[2019-09-03] MEDS ORDERED: MINERAL OIL CONCENTRATE 99.9% 15 ML UDC TOP PRN (06:30)
[2019-09-03 06:38] LABS: BASOPHILS % (AUTO) 0 % (0-10); EOSINOPHILS # (AUTO) 0.2 10^3/uL (0.0-0.3); EOSINOPHILS % (AUTO) 1 % (0-10); HEMATOCRIT 31 % (35-52); HEMOGLOBIN 10.7 G/DL (11.5-16.0); LYMPHOCYTES # (AUTO) 2.7 X 10^3 (1.0-4.0); LYMPHOCYTES % (AUTO) 16 % (12-44); MEAN CORPUSCULAR HEMOGLOBIN 32 PG (25-34); MEAN CORPUSCULAR HGB CONC 35 G/DL (32-36); MEAN CORPUSCULAR VOLUME 92 FL (80-99); MEAN PLATELET VOLUME 10.5 FL (7.4-10.4); MONOCYTES # (AUTO) 0.8 X 10^3 (0.0-1.0); MONOCYTES % (AUTO) 5 % (0-12); NEUTROPHILS # (AUTO) 12.9 X 10^3 (1.8-7.8); NEUTROPHILS % (AUTO) 78 % (42-75); PLATELET COUNT 415 10^3/uL (130-400); RED CELL DISTRIBUTION WIDTH 13.5 % (10.0-14.5); WHITE BLOOD COUNT 16.5 10^3/uL (4.3-11.0)
[2019-09-03] MEDS ORDERED: SUFENTA 0.6MCG/ML BUPIVA 0.125 100 ML ONE (06:40)
[2019-09-03] MEDS ORDERED: BUPIVACAINE 0.25% 30 ML (SENSORCAINE) VIAL ONE (06:41)
[2019-09-03] MEDS ORDERED: AMPICILLIN FOR IV USE 1,000 MG/VIAL ONE (07:56)
[2019-09-03] MEDS ORDERED: LIDOCAINE/EPI 2% 1:200,00 (XYLOCAINE) 10 ML VIAL ONE (08:02)
[2019-09-03] MEDS: AMPICILLIN FOR IV USE 1,000 MG in WATER (STERILE) FOR INJECTION 7.4 ML IV SCH ×2 (08:15→11:52)
--- NOTE | 2019-09-03 11:03 | NUR ---
report received from NICOLE Davies. care assumed of pt.
[2019-09-03] MEDS ORDERED: LACTATED RINGERS 1,000 ML IV ONE (11:24)
--- NOTE | 2019-09-03 11:26 | History & Physical-OB ---
OB - Chief Complaint & HPI Date/Time Date of Admission: Date of Admission: Sep 03, 2019 at 05:15 Date seen by a Provider: Sep 03, 2019 Time Seen by a Provider: 09:15 Chief Complaint/History OB-Reason for Admission/Chief: Onset of Labor Hx : 2 Hx Para: 0 Expected Date of Delivery: Aug 30, 2019 Gestational Age in Weeks: 40 Gestational Age in Days: 4 History of Labs A+, antibody neg, RI, GC/chlamydia neg. UDS pos for meth/amphetamines. Normal 1 hour glucola. GBS pos. Allergies and Home Medications Allergies Coded Allergies: latex (Unverified Allergy, Unknown, 12/02/18) Home Medications No Active Prescriptions or Reported Meds Patient Home Medication List Home Medication List Reviewed: Yes OB - History Hx of Present Care: Yes Ultrasounds: Abnormal US findings (27 week US normal anatomy but growth <3%) Obstetrical Complications: Other (limited care- one visit, substance use) Obstetrical History Hx : 2 Hx Para: 0 Hx Total # of Abortions (Spona: 1 Delivery History Hx Blood Disorders: No Patient Past Medical History PMHx: Methamphetamine use SurgHx: Tonsillectomy/adenoidectomy Social History/Family History HIV/AIDS: No Recent Infectious Disease Expo: No Sexually Transmitted Disease: Yes (HX OF GONORRHEA) Alcohol Use: Denies Use Recreational Drug Use: Yes Smoking Cessation: Current every day smoker Immunizations Tetanus Booster (TDap): Less than 5yrs Rubella: immune RPR/VDRL: Unknown GBS Status: Positive HBsAG: Unknown OB - Admission Exam Physical Exam Vitals: Vital Signs 09/03/19 09/03/19 09/03/19 04:33 09:00 09:30 Temp 36.6 Pulse 100 Resp 18 B/P (MAP) 134/84 (101) Pulse Ox 99 O2 Delivery Room Air HEENT: NCAT Cervical Dilatation: 7cm Effacement: 100% Station: -1 Membranes: Ruptured Amniotic Fluid: Clear Decelerations: No Decelerations Short Term Variability: Present Skilled Nursing Variability: Average (6-25) Labs Laboratory Tests Test 09/03/19 01:35 09/03/19 02:20 Range/Units Urine Color YELLOW Urine Clarity CLEAR Urine pH 7.0 5-9 Urine Specific [place] 1.010 L 1.016-1.022 Urine Protein NEGATIVE NEGATIVE Urine Glucose (UA) NEGATIVE NEGATIVE Urine Ketones NEGATIVE NEGATIVE Urine Nitrite NEGATIVE NEGATIVE Urine Bilirubin NEGATIVE NEGATIVE Urine Urobilinogen 0.2 < = 1.0 MG/DL Urine Leukocyte Esterase NEGATIVE NEGATIVE Urine RBC (Auto) NEGATIVE NEGATIVE Urine RBC NONE /HPF Urine WBC NONE /HPF Urine Squamous Epithelial Cells 5-10 /HPF Urine Crystals NONE /LPF Urine Bacteria TRACE /HPF Urine Casts NONE /LPF Urine Mucus SMALL H /LPF Urine Culture Indicated CULTURE PENDING Urine Opiates Screen NEGATIVE NEGATIVE Urine Oxycodone Screen NEGATIVE NEGATIVE Urine Methadone Screen NEGATIVE NEGATIVE Urine Propoxyphene Screen NEGATIVE NEGATIVE Urine Barbiturates Screen NEGATIVE NEGATIVE Ur Tricyclic Antidepressants Screen NEGATIVE NEGATIVE Urine Phencyclidine Screen NEGATIVE NEGATIVE Urine Amphetamines Screen NEGATIVE NEGATIVE Urine Methamphetamines Screen NEGATIVE NEGATIVE Urine Benzodiazepines Screen NEGATIVE NEGATIVE Urine Cocaine Screen NEGATIVE NEGATIVE Urine Cannabinoids Screen NEGATIVE NEGATIVE White Blood Count 16.5 H 4.3-11.0 10^3/uL Red Blood Count 3.37 L 4.35-5.85 10^6/uL Hemoglobin 10.7 L 11.5-16.0 G/DL Hematocrit 31 L 35-52 % Mean Corpuscular Volume 92 80-99 FL Mean Corpuscular Hemoglobin 32 25-34 PG Mean Corpuscular Hemoglobin Concent 35 32-36 G/DL Red Cell Distribution Width 13.5 10.0-14.5 % Platelet Count 415 H 130-400 10^3/uL Mean Platelet Volume 10.5 H 7.4-10.4 FL Neutrophils (%) (Auto) 78 H 42-75 % Lymphocytes (%) (Auto) 16 12-44 % Monocytes (%) (Auto) 5 0-12 % Eosinophils (%) (Auto) 1 0-10 % Basophils (%) (Auto) 0 0-10 % Neutrophils # (Auto) 12.9 H 1.8-7.8 X 10^3 Lymphocytes # (Auto) 2.7 1.0-4.0 X 10^3 Monocytes # (Auto) 0.8 0.0-1.0 X 10^3 Eosinophils # (Auto) 0.2 0.0-0.3 10^3/uL Basophils # (Auto) 0.0 0.0-0.1 10^3/uL OB - Assessment/Plan/Diagnosis Assessment Assessment: active labor Admission Dx Active labor at 40 weeks gestation GBS positive History of methamphetamine use Limited care Hep B/HIV/RPR unknown Admission Status: Inpatient Order (span 2 midnights) Reason for Inpatient Admission: Labor, delivery and course Plan Plan: Expectant Management Other Plan Ampicillin for GBS pos UDS done- negative Check HIV, HepB and RPR administrative services manager consult after delivery CANDY MCALLISTER MD Sep 03, 2019 11:26
[2019-09-03] MEDS ORDERED: CATHETER FLUSH 10 ML SYR IV PRN (11:30)
[2019-09-03] MEDS ORDERED: EPIDURAL (SUFENTA 0.6MCG/ML BUPIVA 0.125%) 100 ML BAG EPI SCH (11:30)
[2019-09-03] MEDS ORDERED: diphenhydrAMINE 50 MG/ML INJ (BENADRYL) IV PRN (11:30)
[2019-09-03] MEDS ORDERED: ONDANSETRON 4 MG/2 ML (SDV) Z0FRAN IV PRN (11:30)
[2019-09-03] MEDS ORDERED: NALOXONE 0.4 MG/ML 1 ML (NARCAN) VIAL IV PRN (11:30)
[2019-09-03] MEDS ORDERED: BENZOCAINE/MENTHOL (DERMOPLAST) 56 ML CAN TP ONE (13:04)
[2019-09-03] MEDS ORDERED: IBUPROFEN 600 MG (MOTRIN) TAB PO ONE (13:04)
[2019-09-03] MEDS: IBUPROFEN 600 MG (MOTRIN) TAB PO SCH ×2 (13:11→19:20)
--- NOTE | 2019-09-03 13:20 | OB Labor & Delivery Record ---
Vag Delivery Note Vag Delivery Note Date of Delivery: 09/03/19 Preoperative Diagnosis: Karla Sharma is a 24 /Para 2 / 0,Gestational Age (wks)40with 4days Postoperative Diagnosis: Same Surgeon: CADNY MCALLISTER Professional Development Director: None Anesthesia: Epidural Delivery Type: Findings: Viable female , apgars 8/9, weight 7#4oz Lacerations: right vaginal wall laceration, left vaginal wall abrasion Intact placenta with 3 vessel cord. No nuchal cord, body cord or shoulder dystocia Estimated Blood Loss: 250 ml Complications: None Condition: Stable Description of Procedure: The patient is a 24 year old female who presented in active labor. She was admitted and informed consent was obtained. Her labor course was remarkable for augmentation. She progressed to complete dilatation and began to push. She was then set up for delivery. The infant's head was delivered atraumatically in the ZOFIA position. The shoulders and remainder of the infant's body were then delivered without difficulty. Upon delivery, the infant was placed on maternal abdomen. The cord was doubly clamped and cut and the was handed off to the pediatric staff. An intact placenta with 3-vessel cord delivered via Ziat and there was found to be minimal bleeding.~ Vigorous fundal massage was performed and the fundus was found to be firm. IV oxytocin was given. Ex amination of the vagina and perineum revealed a right vaginal wall laceration repaired in simple running fashion with 3-0 rapide and a left vaginal wall abrasion not requiring repair. Following the repair, sponge, instrument and needle counts were correct. Mom and baby were both in stable condition in the labor suite. Vitals - Labs Vital Signs - I&O Vital Signs Date Time Temp Pulse Resp B/P (MAP) Pulse Ox O2 Delivery O2 Flow Rate FiO2 09/03/19 10:45 89 107/58 (74) Room Air 09/03/19 10:30 87 100/55 (70) Room Air 09/03/19 10:15 93 117/75 (89) Room Air 09/03/19 10:00 102 130/60 (83) Room Air 09/03/19 09:45 97 136/77 (96) Room Air 09/03/19 09:30 100 134/84 (101) Room Air 09/03/19 09:15 141/86 (104) Room Air 09/03/19 09:00 36.6 81 18 118/72 (87) Room Air 09/03/19 08:45 90 18 114/65 (81) Room Air 09/03/19 08:30 90 18 114/65 (81) Room Air 09/03/19 08:15 102 18 133/84 (100) Room Air 09/03/19 08:00 36.9 101 128/83 (98) Room Air 09/03/19 07:45 87 111/58 (75) Room Air 09/03/19 07:30 90 129/70 (89) Room Air 09/03/19 07:15 64 130/72 (91) Room Air 09/03/19 04:33 36.5 97 18 99 Room Air 09/03/19 03:30 36.8 55 18 120/62 (81) Room Air 09/03/19 02:31 36.5 97 18 99 Room Air 09/03/19 02:08 36.5 97 18 151/96 (114) 99 Room Air l I & O 09/03/19 07:00 Intake Total 14.8 ml Balance 14.8 ml Labs Laboratory Tests 09/03/19 01:35: Urine Color YELLOW, Urine Clarity CLEAR, Urine pH 7.0, Urine Specific [place] 1.010L, Urine Protein NEGATIVE, Urine Glucose (UA) NEGATIVE, Urine Ketones NEGATIVE, Urine Nitrite NEGATIVE, Urine Bilirubin NEGATIVE, Urine Urobilinogen 0.2, Urine Leukocyte Esterase NEGATIVE, Urine RBC (Auto) NEGATIVE, Urine RBC NONE, Urine WBC NONE, Urine Squamous Epithelial Cells 5-10, Urine Crystals NONE, Urine Bacteria TRACE, Urine Casts NONE, Urine Mucus SMALLH, Urine Culture Indicated CULTURE PENDING, Urine Opiates Screen NEGATIVE, Urine Oxycodone Screen NEGATIVE, Urine Methadone Screen NEGATIVE, Urine Propoxyphene Screen NEGATIVE, Urine Barbiturates Screen NEGATIVE, Ur Tricyclic Antidepressants Screen NEGATIVE, Urine Phencyclidine Screen NEGATIVE, Urine Amphetamines Screen NEGATIVE, Urine Methamphetamines Screen NEGATIVE, Urine Benzodiazepines Screen NEGATIVE, Urine Cocaine Screen NEGATIVE, Urine Cannabinoids Screen NEGATIVE 09/03/19 02:20: White Blood Count 16.5H, Red Blood Count 3.37L, Hemoglobin 10.7L, Hematocrit 31L , Mean Corpuscular Volume 92, Mean Corpuscular Hemoglobin 32, Mean Corpuscular Hemoglobin Concent 35, Red Cell Distribution Width 13.5, Platelet Count 415H, Mean Platelet Volume 10.5H, Neutrophils (%) (Auto) 78H, Lymphocytes (%) (Auto) 16, Monocytes (%) (Auto) 5, Eosinophils (%) (Auto) 1, Basophils (%) (Auto) 0, Neutrophils # (Auto) 12.9H, Lymphocytes # (Auto) 2.7, Monocytes # (Auto) 0.8, Eo sinophils # (Auto) 0.2, Basophils # (Auto) 0.0 CANDY MCALLISTER MD Sep 03, 2019 13:20
[2019-09-03] MEDS ORDERED: MEASLES,MUMPS,RUBELLA 1 EA INJ SQ ONE (14:00)
[2019-09-03] MEDS ORDERED: OXYTOCIN/NORMAL SALINE 500 ML IV SCH (14:00)
[2019-09-03] MEDS ORDERED: CATHETER FLUSH 10 ML SYR IV SCH (14:00)
[2019-09-03] MEDS ORDERED: BENZOCAINE/MENTHOL (DERMOPLAST) 56 ML CAN TP PRN (14:00)
[2019-09-03] MEDS ORDERED: TETANUS,DIPTH,PERTUSS P/F (BOOSTRIX) 0.5 ML VIAL IM ONE (14:00)
[2019-09-03] MEDS ORDERED: WITCH HAZEL(TUCKS) 40 EA JAR TOP PRN (14:00)
--- NOTE | 2019-09-03 14:10 | NUR ---
regular diet served.
[2019-09-03] MEDS ORDERED: IBUPROFEN 600 MG (MOTRIN) TAB PO SCH (15:00)
--- NOTE | 2019-09-03 15:00 | NUR ---
report given to NICOLE Cooper.
--- NOTE | 2019-09-03 15:05 | NUR ---
Patient transferred to room 310. Assumed care of patient.
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
[2019-09-03] MEDS: CATHETER FLUSH 10 ML SYR IV SCH ×2 (15:45→19:36)
--- NOTE | 2019-09-03 17:17 | NUR ---
Contacted Dept. of [employer] in [place] and made Hot Line report of pt's previous positive drug screen and limited care. Report number given was [id number]. [place], [place] medical social consultant contacted this medical social consultant and is requesting that when Karla and baby discharged home to [place] that she be contacted as she is medical social consultant promotion officer and will make a home visit. Her name is Itzel Simons,Phone number [phone].
--- NOTE | 2019-09-03 18:06 | NUR ---
HAS BEEN UP WALKING IN HALLS.
[2019-09-03] MEDS: DOCUSATE SODIUM 100 MG (COLACE) CAP PO SCH (19:44)
[2019-09-04] MEDS: IBUPROFEN 600 MG (MOTRIN) TAB PO SCH ×3 (00:14→16:27)
[2019-09-04 03:31] VITALS: BP 128/78
[2019-09-04] MEDS: CATHETER FLUSH 10 ML SYR IV SCH ×2 (03:36→15:52)
[2019-09-04 06:45] LABS: BASOPHILS % (AUTO) 0 % (0-10); EOSINOPHILS # (AUTO) 0.1 10^3/uL (0.0-0.3); EOSINOPHILS % (AUTO) 1 % (0-10); HEMATOCRIT 25 % (35-52); HEMOGLOBIN 8.5 G/DL (11.5-16.0); LYMPHOCYTES # (AUTO) 2.9 X 10^3 (1.0-4.0); LYMPHOCYTES % (AUTO) 27 % (12-44); MEAN CORPUSCULAR HEMOGLOBIN 31 PG (25-34); MEAN CORPUSCULAR HGB CONC 34 G/DL (32-36); MEAN CORPUSCULAR VOLUME 91 FL (80-99); MEAN PLATELET VOLUME 9.9 FL (7.4-10.4); MONOCYTES # (AUTO) 0.7 X 10^3 (0.0-1.0); MONOCYTES % (AUTO) 6 % (0-12); NEUTROPHILS # (AUTO) 7.2 X 10^3 (1.8-7.8); NEUTROPHILS % (AUTO) 66 % (42-75); PLATELET COUNT 334 10^3/uL (130-400); RED CELL DISTRIBUTION WIDTH 13.2 % (10.0-14.5)
[2019-09-04 08:00] VITALS: BP 105/66
--- NOTE | 2019-09-04 08:31 | Anesthesia-Regional Post-Op ---
Regional Patient Condition Mental Status: Alert, Oriented x3 Circulation: Same as Pre-Op Headache: Absent Sensation: Full Recovery Motor Block: Absent Post Op Complications Complications None Follow Up Care/Instructions Patient Instructions None needed. Anesthesia/Patient Condition Patient is doing well, no complaints, stable vital signs, no apparent adverse anesthesia problems. No complications reported per nursing. ANH MACIAS CRNA Sep 04, 2019 08:31
[2019-09-04] MEDS: DOCUSATE SODIUM 100 MG (COLACE) CAP PO SCH ×2 (09:05→21:01)
[2019-09-04 12:00] VITALS: BP 109/75
[2019-09-04 16:29] VITALS: BP 108/70
--- NOTE | 2019-09-04 16:47 | Progress Note ---
Subjective Subjective/Events-last exam Afebrile, feeling okay. Has vaginal pain, denies dizziness. Has some mild shortness of breath when she is very active. Reports is going well, but she thinks baby is not getting enough so has been alternating with bottle. Objective Exam Last Set of Vital Signs Vital Signs Date Time Temp Pulse Resp B/P (MAP) Pulse Ox O2 Delivery O2 Flow Rate FiO2 09/04/19 16:29 37.0 72 108/70 (83) 100 09/04/19 12:00 18 Room Air Capillary Refill : I&O Intake and Output 09/04/19 00:00 Intake Total 1022.2 ml Output Total 1400 ml Balance -377.8 ml Intake Oral 1000 ml IV Total 22.2 ml Output Urine Total 1400 ml Daily Weight Change No General: Alert, No Acute Distress Lungs: Clear to Auscultation, Normal Air Movement Heart: Regular Rate, No Murmurs Neuro: Normal Speech Psych/Mental Status: Mental Status NL Results/Procedures Lab Laboratory Tests 09/04/19 06:10: White Blood Count 11.0, Red Blood Count 2.74L, Hemoglobin 8.5#L, Hematocrit 25L, Mean Corpuscular Volume 91, Mean Corpuscular Hemoglobin 31, Mean Corpuscular Hemoglobin Concent 34, Red Cell Distribution Width 13.2, Platelet Count 334, Mean Platelet Volume 9.9, Neutrophils (%) (Auto) 66, Lymphocytes (%) (Auto) 27, Monocytes (%) (Auto) 6, Eosinophils (%) (Auto) 1, Basophils (%) (Auto) 0, Neutrophils # (Auto) 7.2, Lymphocytes # (Auto) 2.9, Monocytes # (Auto) 0.7, Eosinophils # (Auto) 0.1, Basophils # (Auto) 0.0 Microbiology 09/03/19 Urine Culture - Final, Complete 3 or more isolates Assessment/Plan Assessment/Plan (1) anemia Status: Acute Assessment & Plan: Asymptomatic, start iron daily (2) Status post vaginal delivery Status: Acute Assessment & Plan: Routine care, blood type positive no need for rhogam, Rubella immune. HIV/HepB/RPR pending. (3) History of substance use Assessment & Plan: UDS negative on admit. horticultural services supervisor consulted, pt plans to live with her mother, see psychosocial rehabilitation counselor note- DCF in [place] requests call when discharged so they can do home visit. Clinical Quality Measures DVT/VTE Risk/Contraindication: Risk Factor Score Per Nursin RFS Level Per Nursing on Admit: 1=Low/No VTE PPX CANDY MCALLISTER MD Sep 04, 2019 16:47
--- NOTE | 2019-09-04 19:30 | NUR ---
INITIAL SHIFT ASSESSMENT DONE. PT REPORTS PAIN 6/10 TO PERINEUM. DENIES ANY HEAVY BLEEDING. PT REQUESTS INFANT BE TAKEN TO [facility] SO SHE MAY STEP OFF THE UNIT.
--- NOTE | 2019-09-04 19:43 | NUR ---
PT RETURNS TO OB AT THIS TIME IN STABLE CONDITION.
[2019-09-04 21:00] VITALS: BP 96/64
--- NOTE | 2019-09-04 21:00 | NUR ---
VS OBTAINED AND STABLE.
[2019-09-05] MEDS: IBUPROFEN 600 MG (MOTRIN) TAB PO SCH ×3 (00:13→12:58)
--- NOTE | 2019-09-05 01:05 | NUR ---
PADS AND WIPES GIVEN PER REQUEST. PT REPORTS PAIN MUCH IMPROVED.
--- NOTE | 2019-09-05 02:00 | NUR ---
PT REQUESTS PEN TO RECORD FEEDINGS. DENIES ANY FURTHER NEEDS.
--- NOTE | 2019-09-05 02:50 | NUR ---
PT REQUESTS PACIFIER FOR . REPORTS PAIN RESOLVED AT THIS TIME. PT DENIES ANY NEEDS OR C/O'S.
[2019-09-05 04:00] VITALS: BP 110/79
--- NOTE | 2019-09-05 04:00 | NUR ---
PT CALLS NURSE TO ROOM BECAUSE SHE CANNOT GET TO [facility]. ASSISTANCE GIVEN. PT DENIES ANY FURTHER NEEDS.
--- NOTE | 2019-09-05 04:35 | NUR ---
PT C/O INFANT UNCONSOLABLE AGAIN AT THIS TIME. REQUESTS INFANT BE TAKEN TO [facility] SO SHE MAY REST.
--- NOTE | 2019-09-05 06:00 | NUR ---
INFANT RETURNED TO PT AT THIS TIME.
--- NOTE | 2019-09-05 06:05 | NUR ---
SCHEDULED MOTRIN ADMINISTERED.
--- NOTE | 2019-09-05 06:55 | NUR ---
PT TAKES TO [facility] AND AMB OFF UNIT AT THIS TIME.
[2019-09-05] MEDS ORDERED: FERROUS SULF 325 MG (IRON) TAB PO SCH (07:00)
--- NOTE | 2019-09-05 07:13 | NUR ---
PT RETURNS TO UNIT. TO MOM'S ROOM.
[2019-09-05 10:10] VITALS: BP 112/72
[2019-09-05] MEDS: DOCUSATE SODIUM 100 MG (COLACE) CAP PO SCH (10:10)
--- NOTE | 2019-09-05 10:10 | NUR ---
Initial shift assessment completed, see interventions for further.
--- NOTE | 2019-09-05 10:11 | NUR ---
here. dismissal orders received.
[2019-09-05] MEDS ORDERED: FERR325T18 PO (10:13)
[2019-09-05] MEDS ORDERED: IBUP-844 PO (10:13)
[2019-09-05] MEDS ORDERED: DOCU100C37 PO (10:13)
--- NOTE | 2019-09-05 10:17 | Discharge Summary ---
Discharge Summary Hospital Course Problems/Diagnosis: (1) Status post vaginal delivery Status: Acute Assessment & Plan: Routine care (2) History of substance use Assessment & Plan: Negative on admission, nephrology social worker consulted, plan for [place] child services worker to do home visit after d/c per social work. (3) anemia Status: Acute Assessment & Plan: Asymptomatic, started on iron daily. (4) Screen for STD (sexually transmitted disease) Assessment & Plan: Unknown Hep B, HIV and RPR status, drawn and pending at d/c. Hospital Course Date of Admission: Sep 03, 2019 at 05:15 Admission Diagnosis : Family Physician/Provider: SussyLocal Physician Date of Discharge: 09/05/19 Discharge Diagnosis: See problem list Hospital Course: See problem list Labs and Pending Lab Test: Microbiology 09/03/19 Urine Culture - Final, Complete 3 or more isolates Home Meds Active Docusate Sodium 100 Mg Capsule 100 Mg PO BID Ibu (Ibuprofen) 600 Mg Tablet 600 Mg PO Q6H Ferrous Sulfate 325 Mg Tablet 325 Mg PO DAILY@0700 Patient Discharge Instructions Follow up with Dr. Alejo or Kathi Infante for visit in 6 weeks. Activity: Activity as Tolerated (avoid strenuous activity x 2 weeks) Nothing Inside Vagina: No Douching, No [place]s Crossing, No Tampons Discharge Diet: No Restrictions Symptoms to Report to : Bleeding Excessive, Constipation(Persistant), Fever Over 101 Degrees F, Pain/Pressure in Chest, Vaginal Bleeding Increase, Cramps in Feet or Legs, Vaginal Discharge Foul, Dizziness/Fainting, Shortness of Breath For Any Problems or Questions: Contact Your Physician Discharge Physical Examination Allergies: Coded Allergies: latex (Unverified Allergy, Unknown, 12/02/18) Vitals & I&Os Vital Signs Date Time Temp Pulse Resp B/P (MAP) Pulse Ox O2 Delivery O2 Flow Rate FiO2 09/05/19 04:00 37.0 64 110/79 (89) 09/04/19 21:00 97 09/04/19 12:00 18 Room Air General Appearance: No Apparent Distress, WD/WN Respiratory: Lungs Clear, Normal Breath Sounds Cardiovascular: Regular Rate, Rhythm, No Murmur Gastrointestinal: Normal Bowel Sounds, Other (fundus firm below umbilicus, appropriately tender) Extremity: No Pedal Edema Neurologic/Psychiatric: Alert, Normal Mood/Affect Copy Copies To 1: CANDY ALEJO MD Clinical Quality Measures DVT/VTE Risk/Contraindication: Risk Factor Score Per Nursin RFS Level Per Nursing on Admit: 1=Low/No VTE PPX Supervisory-Addendum Brief Verification & Attestation Participated in pt care: history, MDM, physical Personally performed: exam, history, MDM Care discussed with: other (pt seen by me only, no student) Procedures: n/a Pt seen by me only, no student. CANDY ALEJO MD Sep 05, 2019 10:17
--- NOTE | 2019-09-05 13:26 | NUR ---
dismissal instructions given, verbalizes understanding. reviewed Rx's and instructed pt to schedule 6 week PP appointment. signature page signed, placed on chart.
--- NOTE | 2019-09-05 13:30 | NUR ---
pt dismissed to rooming in status while remains in hospital. information given.
--- NOTE | 2019-09-06 11:32 | NUR ---
CM/SS following up with the patient's nurse. The patient's nurse reports that SS Aleksandra Brandon called DCF Friday but they requested a follow up call when patient is discharging from hospital. The [facility] adjuster electrical contacts listed was Itzel Simons ([phone]). This CM/SS called and notified Itzle of patient's discharge date (09/06/19). Itzel verbalized understanding and thanked this CM/SS for the update. No other needs at this time.
== END 2019-09-05 13:30 | disposition home or self-care (01) | DRG 806 ==
LOC: WSo 01:25 → LDRP 01:25 → WSo 05:14 → LDRP 05:15
PROVIDERS: ADMIT Family Medicine; ATTEND Family Medicine
PROC: 10E0XZZ Delivery of Products of Conception, External Approach (ICD-10-PCS; principal; 2019-09-03)
PROC: 0UQGXZZ Repair Vagina, External Approach (ICD-10-PCS; 2019-09-03)
DX: O48.0 Post-term pregnancy (principal); O71.4 Obstetric high vaginal laceration alone; O99.334 Smoking (tobacco) complicating childbirth; F17.210 Nicotine dependence, cigarettes, uncomplicated; O99.824 Streptococcus B carrier state complicating childbirth; O90.81 Anemia of the puerperium; Z3A.40 40 weeks gestation of pregnancy; Z37.0 Single live birth; Z23 Encounter for immunization
CPT/HCPCS: 36415; 80306; 81000; 85025; 86703; 86780; 86850; 86900; 86901; 87088; 87340; 90707; 90715; 99212

== ENCOUNTER 2020-06-15 11:38 | Emergency (ER) | payer MEDICAID ==
[~2020-06-15] VITALS: Ht 154 cm; Wt 64.8 kg
[~2020-06-15 11:38] MED LIST changes: +DOCU100C37 PO; +FERR325T18 PO; +IBUP-844 PO
--- NOTE | 2020-06-15 13:18 | ED Cough/URI ---
General Chief Complaint: Cough/Cold/Flu Symptoms Stated Complaint: COUGH/SOA/FEVER Nursing Triage Note: patient states cough/fever for last four days, states chest/back discomfort with taking deep breaths. Sepsis Screen: No Definite Risk Source: patient Exam Limitations: no limitations History of Present Illness Date Seen by Provider: Jun 15, 2020 Time Seen by Provider: 12:22 Initial Comments Here with 4 days of cough and pain with deep breathing. Also had fever but doesn't have it today. Denies nausea, vomiting or diarrhea. Did have contact with somebody who was sick on Friday night when she and her significant other got into a car with them and apparently there are coughing. They did not mention they were sick until afterwards. Unsure if there were COVID positive. She has used her albuterol inhaler which has helped but she is out of that now. Arrives with daughter and significant other. Timing/Duration: constant Severity/Quality: dry cough Prior Episodes/Possible Cause: occasional episodes Modifying Factors: Worse With Activity; Improves With Albuterol Inhaler Associated Symptoms: cough, fever/chills, nasal congestion, shortness of breath, sore throat, wheezing Allergies and Home Medications Allergies Coded Allergies: latex (Unverified Allergy, Unknown, 12/02/18) Home Medications Docusate Sodium 100 Mg Capsule, 100 MG PO BID Prescribed by: CANDY MCALLISTER on 09/05/19 1013 Ferrous Sulfate 325 Mg Tablet, 325 MG PO DAILY@0700 Prescribed by: CANDY MCALLISTER on 09/05/19 1013 Ibuprofen 600 Mg Tablet, 600 MG PO Q6H Prescribed by: CANDY MCALLISTER on 09/05/19 1013 Patient Home Medication List Home Medication List Reviewed: Yes Review of Systems Review of Systems Constitutional: see HPI, fever EENTM: see HPI Respiratory: see HPI Cardiovascular: no symptoms reported Gastrointestinal: no symptoms reported Genitourinary: no symptoms reported Musculoskeletal: no symptoms reported Past Sjexyvo-Dtlihi-Nyvvtq Hx Past Med/Social Hx: Reviewed Nursing Past Med/Soc Hx Patient Social History Alcohol Use: Denies Use Recreational Drug Use: No Drug of Choice: + THC and meth ON UDS at 27 week visit Smoking Status: Current Everyday Smoker Type Used: Cigarettes 2nd Hand Smoke Exposure: Yes Recent Foreign Travel: No Contact w/Someone Who Travel: No Recent Infectious Disease Expo: No Recent Hopitalizations: No Physical Abuse: No Sexual Abuse: No Mistreated: No Fear: No Immunizations Up To Date Tetanus Booster (TDap): Less than 5yrs Seasonal Allergies Seasonal Allergies: No Past Medical History Surgeries: Yes Adenoidectomy, Tonsillectomy Respiratory: No Cardiac: No Neurological: No Reproductive Disorders: No Sexually Transmitted Disease: Yes (HX OF GONORRHEA) HIV/AIDS: No Genitourinary: No Gastrointestinal: No Musculoskeletal: No Endocrine: No HEENT: No Cancer: No Psychosocial: Yes Anxiety, Personality Disorder Integumentary: No Blood Disorders: No Family Medical History Reviewed Nursing Family Hx No Pertinent Family Hx Physical Exam Vital Signs - First Documented 06/15/20 12:24 Temp 36.4 Pulse 66 Resp 18 B/P (MAP) 127/88 (101) Pulse Ox 97 O2 Delivery Room Air Capillary Refill : Less Than 3 Seconds Height: 5'0" Weight: 120lbs. oz. 54.002079ev; 27.00 BMI Method:Stated General Appearance: WD/WN, no apparent distress HEENT: PERRL/EOMI, pharyngeal erythema (mild), other (moderate clear rhinorrhea and moderate erythema) Neck: non-tender, supple Respiratory: lungs clear, normal breath sounds Cardiovascular: regular rate, rhythm, no murmur Neurologic/Psychiatric: alert, oriented x 3 Skin: normal color, warm/dry Progress/Results/Core Measures Suspected Sepsis Recent Fever Within 48 Hours: Yes Infection Criteria Present: None New/Unexplained Altered Menta: No Sepsis Screen: No Definite Risk SIRS Temperature: Pulse: 66 Respiratory Rate: 18 Blood Pressure 127 /88 Mean: 101 Results/Orders Lab Results Laboratory Tests Test 06/15/20 12:24 Range/Units Group A Streptococcus Screen NEGATIVE NEGATIVE Micro Results Microbiology 06/15/20 Influenza Types A,B Antigen (AMANDA) - Final, Complete My Orders Orders - SRIRAM HUDSON MD Rapid Strep A Screen (06/15/20 12:20) Influenza A And B Antigens (06/15/20 12:20) Coronavirus Sars-Cov-2 So 2019 (06/15/20 12:20) Vital Signs/I&O 06/15/20 06/15/20 12:24 12:24 Temp 36.4 Pulse 66 Resp 18 B/P (MAP) 127/88 (101) Pulse Ox 97 O2 Delivery Room Air Room Air Capillary Refill : Less Than 3 Seconds Blood Pressure Mean: 101 Progress Note : Progress Note Seen and evaluated. Rapid strep, influenza and COVID-19 evaluation done. Strep and flu were negative. Discharged home with return precautions. Patient verbalize understanding instructions and agreement with plan. She was given covert precautions. Departure Impression Primary Impression: Upper respiratory infection Qualified Codes: J06.9 - Acute upper respiratory infection, unspecified Additional Impression: Encounter for laboratory testing for COVID-19 virus Disposition: HOME, SELF-CARE Condition: Stable Departure-Patient Inst. Decision time for Depature: 13:17 Referrals: NO,LOCAL PHYSICIAN (PCP/Family) Primary Care Physician Patient Instructions: Viral Upper Respiratory Infection, Adult (DC), Coronavirus Disease 2019 (COVID-19) (DC) Add. Discharge Instructions: All discharge instructions reviewed with patient and/or family. Voiced understanding. Drink plenty of fluids and get plenty of rest. You will need to remain on quarantine until test results are noted. If they are negative, you will need to be isolated for 3 days after symptoms resolve. If they are positive, the health department will call you and direct quarantine timeframe. You may take ibuprofen 600 mg every 8 hours as needed for fever or pain. You may take Tyl enol/acetaminophen 1000 mg every 8 hours as needed for fever.. Return for worse pain, fever, vomiting, weakness, breathing problems or other concerns as needed. Scripts Albuterol Sulfate (VENTOLIN HFA) 1 Puff Puff 2 PUFF INH Q4H PRN for WHEEZING, #1 INHALER 1 Refill 1 PUFF = 90 MCG Prov: SRIRAM HUDSON MD 06/15/20 SRIRAM HUDSON MD Jun 15, 2020 13:18
[2020-06-15] MEDS ORDERED: RT-ALBUINH INH (13:19)
[2020-06-15 14:03] VITALS: BP 127/88
== END 2020-06-15 14:00 | disposition home or self-care (01) ==
LOC: EDUNIT# 11:38 → ER 11:41
DX: J06.9 Acute upper respiratory infection, unspecified (principal); F17.210 Nicotine dependence, cigarettes, uncomplicated; Z20.828 Contact with and (suspected) exposure to other viral communicable diseases; Z91.040 Latex allergy status
CPT/HCPCS: 84703; 87430; 87804; 99282; U0002; 87635

== ENCOUNTER 2020-08-13 12:01 | Emergency (ER) | payer MEDICAID ==
[~2020-08-13] VITALS: Ht 152 cm; Wt 64.8 kg
[~2020-08-13 12:01] MED LIST changes: +RT-ALBUINH INH
[2020-08-13 12:55] LABS: BASOPHILS % (AUTO) 0 % (0-10); EOSINOPHILS # (AUTO) 0.2 10^3/uL (0.0-0.3); EOSINOPHILS % (AUTO) 2 % (0-10); HEMATOCRIT 42 % (35-52); HEMOGLOBIN 14.5 g/dL (11.5-16.0); LYMPHOCYTES # (AUTO) 2.9 10^3/uL (1.0-4.0); LYMPHOCYTES % (AUTO) 31 % (12-44); MEAN CORPUSCULAR HEMOGLOBIN 32 pg (25-34); MEAN CORPUSCULAR HGB CONC 35 g/dL (32-36); MEAN CORPUSCULAR VOLUME 92 fL (80-99); MEAN PLATELET VOLUME 11.3 fL (9.0-12.2); MONOCYTES # (AUTO) 0.5 10^3/uL (0.0-1.0); MONOCYTES % (AUTO) 5 % (0-12); NEUTROPHILS # (AUTO) 5.9 10^3/uL (1.8-7.8); NEUTROPHILS % (AUTO) 62 % (42-75); PLATELET COUNT 300 10^3/uL (130-400); WHITE BLOOD COUNT 9.5 10^3/uL (4.3-11.0)
[2020-08-13] MEDS ORDERED: LACTATED RINGERS 1,000 ML IV ONE (13:00)
[2020-08-13 13:09] LABS: CHLORIDE 106 MMOL/L (98-107); SODIUM 135 MMOL/L (135-145)
[2020-08-13 13:10] LABS: CALCIUM 8.9 MG/DL (8.5-10.1)
[2020-08-13 13:12] LABS: GLUCOSE 86 MG/DL (70-105); TOTAL PROTEIN 7.1 GM/DL (6.4-8.2)
[2020-08-13 13:13] LABS: BILIRUBIN,TOTAL 0.4 MG/DL (0.1-1.0); CARBON DIOXIDE 17 MMOL/L (21-32)
[2020-08-13 13:15] LABS: ALKALINE PHOSPHATASE 48 U/L (40-136); CREATININE SERUM 0.64 MG/DL (0.60-1.30); GFR ESTIMATED > 60
[2020-08-13 13:16] LABS: BUN/CREATININE RATIO 14
[2020-08-13 13:18] LABS: ALANINE AMINOTRANSFERASE 17 U/L (0-55)
[2020-08-13 13:21] LABS: BILIRUBIN,URINE NEGATIVE (NEGATIVE); CLARITY,URINE CLEAR; COLOR,URINE YELLOW; GLUCOSE, URINE (UA) NEGATIVE (NEGATIVE); KETONES,URINE NEGATIVE (NEGATIVE); LEUKOCYTE ESTERASE ,URINE NEGATIVE (NEGATIVE); NITRITE,URINE NEGATIVE (NEGATIVE); PROTEIN,URINE NEGATIVE (NEGATIVE)
[2020-08-13 13:27] LABS: BACTERIA,URINE NEGATIVE /HPF; WBC,URINE 0-2 /HPF
[2020-08-13 13:28] LABS: URINE OTHER RARE SPERM /HPF
[2020-08-13 13:28] LABS: POTASSIUM 4.3 MMOL/L (3.6-5.0)
[2020-08-13 13:40] LABS: TSH (THYROID ANALYZER) 0.21 UIU/ML (0.35-4.94)
--- NOTE | 2020-08-13 13:57 | ED General ---
General Chief Complaint: Cardiac/General Problems Stated Complaint: 10 WKS PREG/RAPID HR AND SOB W/ MOVEMENT Nursing Triage Note: pt presents to ed with complaints of palpitations and soa with activity x 1 week. pt reports she is aprox 10 weeks . Nursing Sepsis Screen: No Definite Risk Source of Information: Patient Exam Limitations: No Limitations History of Present Illness Date Seen by Provider: Aug 13, 2020 Time Seen by Provider: 12:15 Initial Comments This 25-year-old young lady at approximately 10 weeks gestational age presents to the emergency room with complaints of shortness of breath with exertion, palpitations, and occasionally feeling lightheaded. This has been going on for a couple of weeks and she denies prior episodes. She denies symptoms of infectious illness such as cough, fever, sore throat, myalgias, etc. She has been careful to isolate to avoid COVID-19 exposures. She denies any prior ca rdiopulmonary problems. Dr. Sprague is her obstetrical provider. Allergies and Home Medications Allergies Coded Allergies: latex (Unverified Allergy, Unknown, 12/02/18) Home Medications Albuterol Sulfate 1 Puff Puff, 2 PUFF INH Q4H PRN for WHEEZING 1 PUFF = 90 MCG Prescribed by: SRIRAM HUDSON on 06/15/20 1319 Docusate Sodium 100 Mg Capsule, 100 MG PO BID Prescribed by: CANDY MCALLISTER on 09/05/19 1013 Ferrous Sulfate 325 Mg Tablet, 325 MG PO DAILY@0700 Prescribed by: CANDY MCALLISTER on 09/05/19 1013 Ibuprofen 600 Mg Tablet, 600 MG PO Q6H Prescribed by: CANDY MCALLISTER on 09/05/19 1013 Patient Home Medication List Home Medication List Reviewed: Yes Review of Systems Review of Systems Constitutional: no symptoms reported EENTM: no symptoms reported Respiratory: see HPI Cardiovascular: see HPI Gastrointestinal: no symptoms reported Genitourinary: see HPI : Yes Expected Date of Delivery: Mar 07, 2020 Musculoskeletal: no symptoms reported Skin: no symptoms reported Psychiatric/Neurological: No Symptoms Reported Hematologic/Lymphatic: No Symptoms Reported Past Rynddhy-Bilotd-Wfemui Hx Past Med/Social Hx: Reviewed and Corrections made Patient Social History Alcohol Use: Denies Use Recreational Drug Use: No (Prior positive drug screen) Drug of Choice: + THC and meth ON UDS at 27 week visit Smoking Status: Current Everyday Smoker Type Used: Cigarettes 2nd Hand Smoke Exposure: Yes Recent Foreign Travel: No Contact w/Someone Who Travel: No Recent Infectious Disease Expo: No Recent Hopitalizations: No Physical Abuse: No Sexual Abuse: No Mistreated: No Fear: No Immunizations Up To Date Tetanus Booster (TDap): Less than 5yrs Seasonal Allergies Seasonal Allergies: No Past Medical History Surgeries: Yes Adenoidectomy, Tonsillectomy Respiratory: No Cardiac: No Neurological: No : Yes Expected Date of Delivery: Mar 07, 2020 Hx : 5 Hx Para: 1 Reproductive Disorders: No Sexually Transmitted Disease: Yes (HX OF GONORRHEA) HIV/AIDS: No Genitourinary: No Gastrointestinal: No Musculoskeletal: No Endocrine: No HEENT: No Cancer: No Psychosocial: Yes Anxiety, Personality Disorder Integumentary: No Blood Disorders: No Family Medical History No Pertinent Family Hx Physical Exam Vital Signs Vital Signs - First Documented 08/13/20 12:34 Temp 36.8 Pulse 59 Resp 16 B/P (MAP) 127/85 (99) Pulse Ox 98 Capillary Refill : Less Than 3 Seconds Height, Weight, BMI Height: 5'0" Weight: 120lbs. oz. 54.479426xq; 28.00 BMI Method:Stated General Appearance: No Apparent Distress, WD/WN HEENT: PERRL/EOMI, Normal ENT Inspection Neck: Normal Inspection Respiratory: Lungs Clear, Normal Breath Sounds, No Accessory Muscle Use Cardiovascular: No Edema, No Murmur, Bradycardia Gastrointestinal: Non Tender, Soft Extremity: Normal Inspection, No Calf Tenderness, No Pedal Edema Neurologic/Psychiatric: Alert, Oriented x3, No Motor/Sensory Deficits, Normal Mood/Affect, c 40a crew chief II-XII Norm as Tested Skin: Normal Color, Warm/Dry Progress/Results/Core Measures Suspected Sepsis Recent Fever Within 48 Hours: No Infection Criteria Present: None New/Unexplained Altered Menta: No Sepsis Screen: No Definite Risk SIRS Temperature: Pulse: 59 Respiratory Rate: 16 Laboratory Tests 08/13/20 12:47: White Blood Count 9.5 Blood Pressure 127 /85 Mean: 99 Laboratory Tests 08/13/20 12:47: Creatinine 0.64, Platelet Count 300, Total Bilirubin 0.4 Results/Orders Lab Results Laboratory Tests Test 08/13/20 12:47 08/13/20 13:12 Range/Units White Blood Count 9.5 4.3-11.0 10^3/uL Red Blood Count 4.57 3.80-5.11 10^6/uL Hemoglobin 14.5 11.5-16.0 g/dL Hematocrit 42 35-52 % Mean Corpuscular Volume 92 80-99 fL Mean Corpuscular Hemoglobin 32 25-34 pg Mean Corpuscular Hemoglobin Concent 35 32-36 g/dL Red Cell Distribution Width 12.5 10.0-14.5 % Platelet Count 300 130-400 10^3/uL Mean Platelet Volume 11.3 9.0-12.2 fL Immature Granulocyte % (Auto) 0 % Neutrophils (%) (Auto) 62 42-75 % Lymphocytes (%) (Auto) 31 12-44 % Monocytes (%) (Auto) 5 0-12 % Eosinophils (%) (Auto) 2 0-10 % Basophils (%) (Auto) 0 0-10 % Neutrophils # (Auto) 5.9 1.8-7.8 10^3/uL Lymphocytes # (Auto) 2.9 1.0-4.0 10^3/uL Monocytes # (Auto) 0.5 0.0-1.0 10^3/uL Eosinophils # (Auto) 0.2 0.0-0.3 10^3/uL Basophils # (Auto) 0.0 0.0-0.1 10^3/uL Immature Granulocyte # (Auto) 0.0 0.0-0.1 10^3/uL Sodium Level 135 135-145 MMOL/L Potassium Level 4.3 3.6-5.0 MMOL/L Chloride Level 106 98-107 MMOL/L Carbon Dioxide Level 17 L 21-32 MMOL/L Anion Gap 12 5-14 MMOL/L Blood Urea Nitrogen 9 7-18 MG/DL Creatinine 0.64 0.60-1.30 MG/DL Estimat Glomerular Filtration Rate > 60 BUN/Creatinine Ratio 14 Glucose Level 86 70-105 MG/DL Calcium Level 8.9 8.5-10.1 MG/DL Corrected Calcium 8.9 8.5-10.1 MG/DL Total Bilirubin 0.4 0.1-1.0 MG/DL Aspartate Amino Transf (AST/SGOT) 21 5-34 U/L Alanine Aminotransferase (ALT/SGPT) 17 0-55 U/L Alkaline Phosphatase 48 40-136 U/L C-Reactive Protein High Sensitivity 1.16 H 0.00-0.50 MG/DL B-Type Natriuretic Peptide 12.1 <100.0 PG/ML Total Protein 7.1 6.4-8.2 GM/DL Albumin 4.0 3.2-4.5 GM/DL Free Thyroxine 0.88 0.70-1.48 NG/DL TSH [place] Testing 0.21 L 0.35-4.94 UIU/ML Serum Test, Qualitative POSITIVE NEGATIVE Urine Color YELLOW Urine Clarity CLEAR Urine pH 7.0 5-9 Urine Specific [place] 1.010 L 1.016-1.022 Urine Protein NEGATIVE NEGATIVE Urine Glucose (UA) NEGATIVE NEGATIVE Urine Ketones NEGATIVE NEGATIVE Urine Nitrite NEGATIVE NEGATIVE Urine Bilirubin NEGATIVE NEGATIVE Urine Urobilinogen 0.2 < = 1.0 MG/DL Urine Leukocyte Esterase NEGATIVE NEGATIVE Urine RBC (Auto) NEGATIVE NEGATIVE Urine RBC NONE /HPF Urine WBC 0-2 /HPF Urine Squamous Epithelial Cells 5-10 /HPF Urine Crystals NONE /LPF Urine Bacteria NEGATIVE /HPF Urine Casts NONE /LPF Urine Mucus NEGATIVE /LPF Urine Other RARE SPERM /HPF Urine Culture Indicated NO My Orders Orders - ELIUD GRAHAM MD Lactated Ringers (Lr 1000 Ml Iv Solution (08/13/20 13:00) BNP (08/13/20 12:46) Hcg,Qualitative Serum (08/13/20 12:46) Thyroid Analyzer (08/13/20 12:46) Medications Given in ED Vital Signs/I&O Capillary Refill : Less Than 3 Seconds Blood Pressure Mean: 99 Progress Note : Progress Note Blood pressure upon standing did drop a little and heart rate increased from the 50s to the 80s. She received IV fluids with some improvement. Heart rate was noted to dip as low as 46 on telemetry. Rate seem to be variable and I would characterize it as a sinus arrhythmia with frequent bradycardia. I discussed the situation with Dr. Koenig after work-up. He suggested further outpatient work-up with cardiac monitoring. ECG Initial ECG Impression Date: Aug 13, 2020 Initial ECG Impression Time: 12:27 Initial ECG Rate: 55 Comment Sinus arrhythmia with no ST elevation or depression. No abnormal intervals or axis deviation. Departure Impression Primary Impression: Dyspnea on exertion Additional Impressions: Sinus bradycardia Qualified Codes: Z3A.10 - 10 weeks gestation of Disposition: 01 HOME, SELF-CARE Condition: Improved Departure-Patient Inst. Decision time for Depature: 13:53 Referrals: [facility] (PCP/Family) Primary Care Physician HEDY MCKENZIE MD FACP FAC CCDS MERLIN BRICE MD Patient Instructions: Bradycardia Add. Discharge Instructions: Drink plenty of clear liquids and eat a well-balanced diet. Please contact the [facility] at one of the highlighted numbers of below. Informed them Dr. Koenig recommended you follow-up with a electric meter technician and have a cardiac event monitor based on your ER visit. Follow-up with Dr. Sprague later this week also. Return to the emergency room if you have worsening symptoms. If any activity causes a worsening of your symptoms, stop that activity and rest. All discharge instructions reviewed with patient and/or family. Voiced understanding. Copy Copies To 1: ALEJANDRA SPRAGUE MD Copies To 2: MERLIN BRICE MD, JOSHUA T MD Aug 13, 2020 13:57
[2020-08-13 14:15] LABS: FREE T4 (FREE THYROXINE) 0.88 NG/DL (0.70-1.48)
[2020-08-13 14:20] VITALS: BP 123/74
== END 2020-08-13 14:20 | disposition home or self-care (01) ==
LOC: EDUNIT# 12:01 → ER 12:04
DX: O26.891 Other specified pregnancy related conditions, first trimester (principal); R06.09 Other forms of dyspnea; R00.1 Bradycardia, unspecified; Z3A.10 10 weeks gestation of pregnancy; Z77.22 Contact with and (suspected) exposure to environmental tobacco smoke (acute) (chronic); Z91.040 Latex allergy status
CPT/HCPCS: 36415; 80053; 81000; 83880; 84439; 84443; 84703; 85025; 86141; 93005; 93041

== ENCOUNTER → 2020-09-04 | Outpatient (CLI) | payer MEDICAID | LOC: CARD 10:49 | PROVIDERS: ATTEND Internal Medicine Cardiovascular Disease | DX: R06.02 Shortness of breath (principal); R00.2 Palpitations | CPT/HCPCS: 93225; 93226; 93306 ==

== ENCOUNTER 2021-03-04 19:00 | Inpatient (IN) | payer MEDICAID ==
[~2021-03-04] VITALS: Ht 152.4 cm; Wt 75.7 kg
[2021-03-04 19:30] VITALS: BP 112/83
[2021-03-04] MEDS ORDERED: D5 LR IV SOLUTION 1,000 ML IV ONE (19:44)
[2021-03-04] MEDS ORDERED: LACTATED RINGERS 1,000 ML IV SCH (20:15)
[2021-03-04] MEDS ORDERED: TERBUTALINE INJ 1 MG/ML (BRETHINE) AMP SC PRN (20:15)
[2021-03-04] MEDS ORDERED: MINERAL OIL CONCENTRATE 99.9% 15 ML UDC TOP PRN (20:15)
[2021-03-04 20:27] LABS: BASOPHILS % (AUTO) 0 % (0-10); EOSINOPHILS # (AUTO) 0.2 10^3/uL (0.0-0.3); EOSINOPHILS % (AUTO) 1 % (0-10); HEMATOCRIT 32 % (35-52); HEMOGLOBIN 10.7 g/dL (11.5-16.0); LYMPHOCYTES # (AUTO) 2.6 10^3/uL (1.0-4.0); LYMPHOCYTES % (AUTO) 23 % (12-44); MEAN CORPUSCULAR HEMOGLOBIN 32 pg (25-34); MEAN CORPUSCULAR HGB CONC 34 g/dL (32-36); MEAN CORPUSCULAR VOLUME 94 fL (80-99); MEAN PLATELET VOLUME 10.1 fL (9.0-12.2); MONOCYTES # (AUTO) 0.6 10^3/uL (0.0-1.0); MONOCYTES % (AUTO) 5 % (0-12); NEUTROPHILS # (AUTO) 8.1 10^3/uL (1.8-7.8); NEUTROPHILS % (AUTO) 69 % (42-75); PLATELET COUNT 279 10^3/uL (130-400); WHITE BLOOD COUNT 11.6 10^3/uL (4.3-11.0)
[2021-03-04 20:52] LABS: BILIRUBIN,URINE NEGATIVE (NEGATIVE); CLARITY,URINE CLOUDY; COLOR,URINE YELLOW; GLUCOSE, URINE (UA) NEGATIVE (NEGATIVE); KETONES,URINE NEGATIVE (NEGATIVE); LEUKOCYTE ESTERASE ,URINE 1+ (NEGATIVE); NITRITE,URINE NEGATIVE (NEGATIVE); PROTEIN,URINE TRACE (NEGATIVE)
[2021-03-04 21:00] VITALS: BP 125/64
[2021-03-04 21:07] LABS: BACTERIA,URINE FEW /HPF
[2021-03-04 21:08] LABS: AMORPHOUS SEDIMENT,UR LARGE AMOR PHOSPHATE /LPF
[2021-03-04 22:00] VITALS: BP 106/59
[2021-03-04 23:00] VITALS: BP 116/58
[2021-03-04] MEDS: D5 LR IV SOLUTION 1,000 ML IV SCH (23:46)
[2021-03-05] VITALS (73 sets, daily range): BP systolic 95–142; BP diastolic 50–81
[2021-03-05] MEDS: D5 LR IV SOLUTION 1,000 ML IV SCH ×2 (03:39→11:42)
[2021-03-05] MEDS ORDERED: BUTORPHANOL INJ 2 MG/ML (STADOL) VIAL ONE (04:40)
[2021-03-05] MEDS ORDERED: BUTORPHANOL INJ 2 MG/ML (STADOL) VIAL IV ONE (04:45)
[2021-03-05] MEDS ORDERED: fentaNYL 2 mcg/ml BUPIVA 0.125 100 ML ONE (08:26)
[2021-03-05] MEDS ORDERED: OXYTOCIN PRE-MIX DRIP 500 ML IV ONE (08:26)
[2021-03-05] MEDS ORDERED: OXYTOCIN PRE-MIX DRIP 500 ML IV SCH ×2 (08:45→18:45)
[2021-03-05] MEDS ORDERED: fentaNYL INJ 100 MCG/2 ML AMP ONE (09:16)
[2021-03-05] MEDS ORDERED: BUPIVACAINE 0.25% 30 ML (SENSORCAINE) VIAL ONE (09:16)
[2021-03-05] MEDS ORDERED: CATHETER FLUSH 10 ML SYR IV PRN (11:00)
[2021-03-05] MEDS ORDERED: LACTATED RINGERS 1,000 ML IV ONE (11:00)
[2021-03-05] MEDS ORDERED: NALOXONE 0.4 MG/ML 1 ML (NARCAN) VIAL IV PRN (11:00)
[2021-03-05] MEDS ORDERED: fentaNYL 2 mcg/ml BUPIVA 0.125 100 ML IV SCH (11:00)
--- NOTE | 2021-03-05 13:28 | History & Physical-OB/GYN ---
TIANA BASSETT MED STUDENT 03/05/21 1328: OB - Chief Complaint & HPI Date/Time Date of Admission: Date of Admission: Mar 04, 2021 at 19:17 Time Seen by a Provider: 13:21 Chief Complaint/History OB-Reason for Admission/Chief: Induction of Labor Hx : 6 Hx Para: 1 Hx Last Menstrual Period: 05/31/2020 Estimated Date of Conception: 03/13/2021 Expected Date of Delivery: Mar 07, 2021 Gestational Age in Weeks: 39 Gestational Age in Days: 4 History of Labs A+, antibody screen neg GBS neg Rubella immune HIV NR RPR NR Hepatitis B neg Initial Hgb 15.1, followup 11.9 Allergies and Home Medications Allergies Coded Allergies: latex (Unverified Allergy, Unknown, 12/02/18) Home Medications No Active Prescriptions or Reported Meds Patient Home Medication List Home Medication List Reviewed: Yes OB - History Hx of Present Care: Yes Ultrasounds: Normal mid trimester US Medical Complications: None Delivery History Hx Blood Disorders: No Patient Past Medical History PMHx: Methamphetamine use GERD PTSD Migraine Anxiety SurgHx: Tonsillectomy/adenoidectomy Social History/Family History 2nd Hand Smoke Exposure: Yes Immunizations Tetanus Booster (TDap): Less than 5yrs OB - Admission Exam Physical Exam Vitals: Vital Signs 03/05/21 03/05/21 11:45 12:27 Temp 36.2 Pulse 73 Resp 18 B/P (MAP) 103/57 (72) Pulse Ox 100 O2 Delivery Room Air HEENT: NCAT Heart: Rhythm Normal Lungs: Clear Abdomen: Gravid Extremities: Normal Cervical Dilatation: 3cm Effacement: 75% Station: -2 Membranes: Intact Heart Rate: 130's Accelerations: Accelerations Present Decelerations: No Decelerations Snf Variability: Average (6-25) Labs Laboratory Tests Test 03/04/21 19:25 03/04/21 20:15 Range/Units Urine Color YELLOW Urine Clarity CLOUDY Urine pH 7.0 5-9 Urine Specific [place] 1.020 1.016-1.022 Urine Protein TRACE H NEGATIVE Urine Glucose (UA) NEGATIVE NEGATIVE Urine Ketones NEGATIVE NEGATIVE Urine Nitrite NEGATIVE NEGATIVE Urine Bilirubin NEGATIVE NEGATIVE Urine Urobilinogen 0.2 < = 1.0 MG/DL Urine Leukocyte Esterase 1+ H NEGATIVE Urine RBC (Auto) NEGATIVE NEGATIVE Urine RBC NONE /HPF Urine WBC 10-25 H /HPF Urine Squamous Epithelial Cells 10-25 H /HPF Urine Crystals PRESENT H /LPF Urine Amorphous Sediment LARGE JAMES PHOSPHATE H /LPF Urine Bacteria FEW H /HPF Urine Casts NONE /LPF Urine Mucus NEGATIVE /LPF Urine Culture Indicated YES White Blood Count 11.6 H 4.3-11.0 10^3/uL Red Blood Count 3.38 L 3.80-5.11 10^6/uL Hemoglobin 10.7 L 11.5-16.0 g/dL Hematocrit 32 L 35-52 % Mean Corpuscular Volume 94 80-99 fL Mean Corpuscular Hemoglobin 32 25-34 pg Mean Corpuscular Hemoglobin Concent 34 32-36 g/dL Red Cell Distribution Width 13.4 10.0-14.5 % Platelet Count 279 130-400 10^3/uL Mean Platelet Volume 10.1 9.0-12.2 fL Immature Granulocyte % (Auto) 1 % Neutrophils (%) (Auto) 69 42-75 % Lymphocytes (%) (Auto) 23 12-44 % Monocytes (%) (Auto) 5 0-12 % Eosinophils (%) (Auto) 1 0-10 % Basophils (%) (Auto) 0 0-10 % Neutrophils # (Auto) 8.1 H 1.8-7.8 10^3/uL Lymphocytes # (Auto) 2.6 1.0-4.0 10^3/uL Monocytes # (Auto) 0.6 0.0-1.0 10^3/uL Eosinophils # (Auto) 0.2 0.0-0.3 10^3/uL Basophils # (Auto) 0.0 0.0-0.1 10^3/uL Immature Granulocyte # (Auto) 0.1 0.0-0.1 10^3/uL OB - Assessment/Plan/Diagnosis Assessment Assessment: induction of labor Admission Dx 26 year old @ 39 weeks 4 days gestation IOL per cytotec protocol Admission Status: Inpatient Order (span 2 midnights) Reason for Inpatient Admission: IOL Plan Plan: Induction Induction Method: per Misoprostol Protocol Supervisory-Addendum Brief Verification & Attestation Participated in pt care: history, physical Personally performed: exam, history Care discussed with: Medical Student Procedures: n/a ARLENE MCCORMACK MD 03/05/21 1731: OB - Chief Complaint & HPI Date/Time Date seen by a Provider: Mar 05, 2021 Chief Complaint/History Indication for induction: other (Elective) Allergies and Home Medications Allergies Coded Allergies: latex (Unverified Allergy, Unknown, 12/02/18) Home Medications No Active Prescriptions or Reported Meds Patient Home Medication List Home Medication List Reviewed: Yes OB - History Hx of Present Care: Yes Ultrasounds: Normal mid trimester US Obstetrical Complications: None Medical Complications: None Information Induced Hypertension: No Maternal Gestational Diabetes: No Hemorrhage: No Obstetrical History Hx : 6 Hx Para: 1 Hx # Term Pregnancies: 1 Hx # Pregnancies: 0 Number of Living Children: 1 Immunizations Rubella: immune RPR/VDRL: Negative GBS Status: Negative HBsAG: Negative OB - Admission Exam Physical Exam HEENT: NCAT Heart: Rhythm Normal Lungs: Clear Abdomen: Gravid Extremities: Normal Cervical Dilatation: 3cm Effacement: 75% Station: -2 Amniotic Fluid: Clear Heart Rate: 130's Accelerations: Accelerations Present Decelerations: No Decelerations Short Term Variability: Present Snf Variability: Average (6-25) Contractions on Admission: 6-10 Minutes Apart Intensity: Moderate Waldrop Scoring Tool (Modified) Dilation (cm): 1-2cm (1) Effacement (%): 51-79% (2) Descent/Station: -1,0 (2) Cervix Consistency: Medium(1) Cervix Position: Middle/Mid-Position (1) Add 1 point for: Each previous vaginal delivery (1) Waldrop Score: 8 OB - Assessment/Plan/Diagnosis Assessment Assessment: induction of labor Admission Status: Inpatient Order (span 2 midnights) Reason for Inpatient Admission: Labor Plan Other Plan 26 yo @ 39.4 wga here for elective IOL Plan - Expectant delivery - Epidural when desired - GBS neg Supervisory-Addendum Brief Verification & Attestation Participated in pt care: history, physical Personally performed: exam, history Care discussed with: Medical Student Procedures: n/a Verification and Attestation of Medical Student E/M Service A medical student performed and documented this service in my presence. I reviewed and verified all information documented by the medical student and made modifications to such information, when appropriate. I personally performed the physical exam and medical decision making. Arlene Mccormack, Mar 05, 2021,17:30 TIANA BASSETT MED STUDENT Mar 05, 2021 13:28 ARLENE MCCORMACK MD Mar 05, 2021 17:31
--- NOTE | 2021-03-05 17:33 | Labor Progress Note ---
Labor Progress Note Labor Progress Note Date Seen by Provider: Mar 05, 2021 Time Seen by Provider: 17:31 Subjective: Feeling pressure. Objective: AROM clear 8/100/0 Assessment/Plan: @ 39.4 wga here for elective IOL Plan AROM clear, 1720 Pitocin protocol Expectant management Vitals - Labs Vital Signs - I&O Vital Signs Date Time Temp Pulse Resp B/P (MAP) Pulse Ox O2 Delivery O2 Flow Rate FiO2 03/05/21 16:52 97 18 142/65 (90) 100 Room Air 03/05/21 16:26 86 18 111/63 (79) 100 Room Air 03/05/21 16:15 81 18 113/69 (84) 100 Room Air 03/05/21 15:55 74 18 112/71 (85) 100 Room Air 03/05/21 15:45 68 18 104/59 (74) 99 Room Air 03/05/21 15:30 68 18 104/59 (74) 99 Room Air 03/05/21 15:15 74 18 106/59 (75) 100 Room Air 03/05/21 14:55 71 18 99/57 (71) 100 Room Air 03/05/21 14:40 75 18 106/60 (75) 100 Room Air 03/05/21 14:25 66 18 106/58 (74) 100 Room Air 03/05/21 14:10 36.1 66 18 105/59 (74) 99 Room Air 03/05/21 13:55 81 18 97/61 (73) 99 Room Air 03/05/21 13:40 59 18 105/59 (74) 99 Room Air 03/05/21 13:25 96 18 109/62 (78) 100 Room Air 03/05/21 13:13 66 18 109/57 (74) 99 Room Air 03/05/21 12:55 64 18 113/64 (80) 100 Room Air 03/05/21 12:40 66 18 116/66 (83) 100 Room Air 03/05/21 12:27 73 18 103/57 (72) 100 Room Air 03/05/21 12:10 70 18 105/59 (74) 100 Room Air 03/05/21 11:55 73 18 107/63 (78) 100 Room Air 03/05/21 11:45 36.2 85 16 107/66 (80) 100 Room Air 03/05/21 11:30 69 16 120/64 (82) 100 Room Air 03/05/21 11:10 76 18 103/55 (71) 100 Room Air 03/05/21 11:05 63 18 104/58 (73) 100 Room Air 03/05/21 11:00 58 18 106/61 (76) 100 Room Air 03/05/21 10:55 73 18 105/62 (76) 100 Room Air 03/05/21 10:50 71 18 112/60 (77) 100 Room Air 03/05/21 10:45 81 18 112/74 (87) 100 Room Air 03/05/21 10:40 75 18 113/64 (80) 100 Room Air 03/05/21 10:35 85 18 108/62 (77) 100 Room Air 03/05/21 10:30 59 18 108/61 (77) 100 Room Air 03/05/21 10:25 104 18 121/71 (88) 100 Room Air 03/05/21 10:21 66 18 112/61 (78) 100 Room Air 03/05/21 10:15 62 18 115/68 (84) 100 Room Air 03/05/21 10:10 78 18 119/69 (86) 100 Room Air 03/05/21 10:05 76 18 118/65 (82) 100 Room Air 03/05/21 10:00 89 18 115/59 (77) 100 Room Air 03/05/21 09:55 72 18 117/78 (91) 100 Room Air 03/05/21 09:50 76 18 125/81 (96) 100 Room Air 03/05/21 09:45 87 18 116/77 (90) 100 Room Air 03/05/21 09:40 77 18 114/75 (88) 100 Room Air 03/05/21 09:35 85 18 129/73 (91) 100 Room Air 03/05/21 09:30 70 18 124/68 (86) 100 Room Air 03/05/21 09:20 65 18 113/65 (81) 03/05/21 09:05 71 18 109/55 (73) 03/05/21 08:50 64 18 107/55 (72) 03/05/21 08:35 70 18 113/57 (75) 03/05/21 08:20 55 18 109/73 (85) 03/05/21 07:30 36.1 64 18 100/52 (68) 03/05/21 07:00 65 18 100/55 (70) 03/05/21 06:00 65 18 98/53 (68) 03/05/21 05:00 71 18 117/75 (89) 03/05/21 04:00 74 18 95/50 (65) 03/05/21 03:00 35.9 70 18 104/53 (70) 03/05/21 02:00 69 18 107/59 (75) 03/05/21 01:00 55 18 134/63 (86) 03/05/21 00:00 81 18 107/56 (73) 03/04/21 23:00 65 18 116/58 (77) 03/04/21 22:00 75 18 106/59 (75) 03/04/21 21:00 83 18 125/64 (84) 03/04/21 19:30 37.0 95 18 98 Room Air I & O 03/05/21 07:00 Intake Total 2000 ml Balance 2000 ml Labs Laboratory Tests 03/04/21 19:25: Urine Color YELLOW, Urine Clarity CLOUDY, Urine pH 7.0, Urine Specific [place] 1.020, Urine Protein TRACEH, Urine Glucose (UA) NEGATIVE, Urine Ketones NEGATIVE, Urine Nitrite NEGATIVE, Urine Bilirubin NEGATIVE, Urine Urobilinogen 0.2, Urine Leukocyte Esterase 1+H, Urine RBC (Auto) NEGATIVE, Urine RBC NONE, Urine WBC 10-25H, Urine Squamous Epithelial Cells 10-25H, Urine Crystals PRESENTH, Urine Amorphous Sediment LARGE JAMES PHOSPHATEH, Urine Bacteria FEWH, Urine Casts NONE, Urine Mucus NEGATIVE, Urine Culture Indicated YES 03/04/21 20:15: White Blood Count 11.6H, Red Blood Count 3.38L, Hemoglobin 10.7L, Hematocrit 32L , Mean Corpuscular Volume 94, Mean Corpuscular Hemoglobin 32, Mean Corpuscular Hemoglobin Concent 34, Red Cell Distribution Width 13.4, Platelet Count 279, Mean Platelet Volume 10.1, Immature Granulocyte % (Auto) 1, Neutrophils (%) (Auto) 69, Lymphocytes (%) (Auto) 23, Monocytes (%) (Auto) 5, Eosinophils (%) (Auto) 1, Basophils (%) (Auto) 0, Neutrophils # (Auto) 8.1H, Lymphocytes # (Auto) 2.6, Monocytes # (Auto) 0.6, Eosinophils # (Auto) 0.2, Basophils # (Auto) 0.0, Immature Granulocyte # (Auto) 0.1 Microbiology 03/04/21 Urine Culture - Final, Complete Lactobacillus species ALEJANDRA SPRAGUE MD Mar 05, 2021 17:33
--- NOTE | 2021-03-05 18:36 | OB Labor & Delivery Record ---
Vag Delivery Note Vag Delivery Note Date of Delivery: 03/05/21 Preoperative Diagnosis: Karla Sharma is a (26 /Para 6 / 1,Gestational Age (wks)39.5 here for elective IOL Postoperative Diagnosis: Same Surgeon: ALEJANDRA SPRAGUE Casing Inspector: Marysol Perez, MS4 Anesthesia: Epidural Delivery Type: @ 1817 Findings: Viable female , apgars 8/9, weight 6#5 oz, 2875 grams Lacerations: No lacerations Intact placenta with 3 vessel cord. No nuchal cord, body cord or shoulder dystocia Estimated Blood Loss: 125 ml Complications: None Condition: Stable Description of Procedure: The patient is a 26 year old female who presented for IOL. She was admitted and informed consent was obtained. Her labor course was unremarkable.She progressed to complete dilatation and began to push. She was then set up for delivery. The infant's head was delivered atraumatically in the ZOFIA position. The shoulders and remainder of the 's body were then delivered without difficulty. Upon delivery, the head was held below the level of the perineum and the mouth and nares were bulb suctioned. The cord was doubly clamped and cut by FOB and the infant was attened to by the pediatric staff on maternal abdomen. An intact placenta with 3-vessel cord delivered via Zita and there was found to be minimal bleeding.~ Vigorous fundal massage was performed and the fundus was found to be firm. IV oxytocin was given. Examination of the vagina and perineum revealed no lacerations that required repair. Sponge, instrument and needle counts were correct. Mom and baby were both in stable condition in the labor suite. Vitals - Labs Vital Signs - I&O Vital Signs Date Time Temp Pulse Resp B/P (MAP) Pulse Ox O2 Delivery O2 Flow Rate FiO2 03/05/21 17:25 36.2 90 18 121/65 (83) 100 Room Air 03/05/21 17:10 77 18 118/64 (82) 100 Room Air 03/05/21 16:52 97 18 142/65 (90) 100 Room Air 03/05/21 16:26 86 18 111/63 (79) 100 Room Air 03/05/21 16:15 81 18 113/69 (84) 100 Room Air 03/05/21 15:55 74 18 112/71 (85) 100 Room Air 03/05/21 15:45 68 18 104/59 (74) 99 Room Air 03/05/21 15:30 68 18 104/59 (74) 99 Room Air 03/05/21 15:15 74 18 106/59 (75) 100 Room Air 03/05/21 14:55 71 18 99/57 (71) 100 Room Air 03/05/21 14:40 75 18 106/60 (75) 100 Room Air 03/05/21 14:25 66 18 106/58 (74) 100 Room Air 03/05/21 14:10 36.1 66 18 105/59 (74) 99 Room Air 03/05/21 13:55 81 18 97/61 (73) 99 Room Air 03/05/21 13:40 59 18 105/59 (74) 99 Room Air 03/05/21 13:25 96 18 109/62 (78) 100 Room Air 03/05/21 13:13 66 18 109/57 (74) 99 Room Air 03/05/21 12:55 64 18 113/64 (80) 100 Room Air 03/05/21 12:40 66 18 116/66 (83) 100 Room Air 03/05/21 12:27 73 18 103/57 (72) 100 Room Air 03/05/21 12:10 70 18 105/59 (74) 100 Room Air 03/05/21 11:55 73 18 107/63 (78) 100 Room Air 03/05/21 11:45 36.2 85 16 107/66 (80) 100 Room Air 03/05/21 11:30 69 16 120/64 (82) 100 Room Air 03/05/21 11:10 76 18 103/55 (71) 100 Room Air 03/05/21 11:05 63 18 104/58 (73) 100 Room Air 03/05/21 11:00 58 18 106/61 (76) 100 Room Air 03/05/21 10:55 73 18 105/62 (76) 100 Room Air 03/05/21 10:50 71 18 112/60 (77) 100 Room Air 03/05/21 10:45 81 18 112/74 (87) 100 Room Air 03/05/21 10:40 75 18 113/64 (80) 100 Room Air 03/05/21 10:35 85 18 108/62 (77) 100 Room Air 03/05/21 10:30 59 18 108/61 (77) 100 Room Air 03/05/21 10:25 104 18 121/71 (88) 100 Room Air 03/05/21 10:21 66 18 112/61 (78) 100 Room Air 03/05/21 10:15 62 18 115/68 (84) 100 Room Air 03/05/21 10:10 78 18 119/69 (86) 100 Room Air 03/05/21 10:05 76 18 118/65 (82) 100 Room Air 03/05/21 10:00 89 18 115/59 (77) 100 Room Air 03/05/21 09:55 72 18 117/78 (91) 100 Room Air 03/05/21 09:50 76 18 125/81 (96) 100 Room Air 03/05/21 09:45 87 18 116/77 (90) 100 Room Air 03/05/21 09:40 77 18 114/75 (88) 100 Room Air 03/05/21 09:35 85 18 129/73 (91) 100 Room Air 03/05/21 09:30 70 18 124/68 (86) 100 Room Air 03/05/21 09:20 65 18 113/65 (81) 03/05/21 09:05 71 18 109/55 (73) 03/05/21 08:50 64 18 107/55 (72) 03/05/21 08:35 70 18 113/57 (75) 03/05/21 08:20 55 18 109/73 (85) 03/05/21 07:30 36.1 64 18 100/52 (68) 03/05/21 07:00 65 18 100/55 (70) 03/05/21 06:00 65 18 98/53 (68) 03/05/21 05:00 71 18 117/75 (89) 03/05/21 04:00 74 18 95/50 (65) 03/05/21 03:00 35.9 70 18 104/53 (70) 03/05/21 02:00 69 18 107/59 (75) 03/05/21 01:00 55 18 134/63 (86) 03/05/21 00:00 81 18 107/56 (73) 03/04/21 23:00 65 18 116/58 (77) 03/04/21 22:00 75 18 106/59 (75) 03/04/21 21:00 83 18 125/64 (84) 03/04/21 19:30 37.0 95 18 98 Room Air I & O 03/05/21 07:00 Intake Total 2000 ml Balance 2000 ml Labs Laboratory Tests 03/04/21 19:25: Urine Color YELLOW, Urine Clarity CLOUDY, Urine pH 7.0, Urine Specific [place] 1.020, Urine Protein TRACEH, Urine Glucose (UA) NEGATIVE, Urine Ketones NEGATIVE, Urine Nitrite NEGATIVE, Urine Bilirubin NEGATIVE, Urine Urobilinogen 0.2, Urine Leukocyte Esterase 1+H, Urine RBC (Auto) NEGATIVE, Urine RBC NONE, Urine WBC 10-25H, Urine Squamous Epithelial Cells 10-25H, Urine Crystals PRESENTH, Urine Amorphous Sediment LARGE JAMES PHOSPHATEH, Urine Bacteria FEWH, Urine Casts NONE, Urine Mucus NEGATIVE, Urine Culture Indicated YES 03/04/21 20:15: White Blood Count 11.6H, Red Blood Count 3.38L, Hemoglobin 10.7L, Hematocrit 32L , Mean Corpuscular Volume 94, Mean Corpuscular Hemoglobin 32, Mean Corpuscular Hemoglobin Concent 34, Red Cell Distribution Width 13.4, Platelet Count 279, Mean Platelet Volume 10.1, Immature Granulocyte % (Auto) 1, Neutrophils (%) (Auto) 69, Lymphocytes (%) (Auto) 23, Monocytes (%) (Auto) 5, Eosinophils (%) (Auto) 1, Basophils (%) (Auto) 0, Neutrophils # (Auto) 8.1H, Lymphocytes # (Auto) 2.6, Monocytes # (Auto) 0.6, Eosinophils # (Auto) 0.2, Basophils # (Auto) 0.0, Immature Granulocyte # (Auto) 0.1 Microbiology 03/04/21 Urine Culture - Final, Complete Lactobacillus species ALEJANDRA SPRAGUE MD Mar 05, 2021 18:36
[2021-03-05] MEDS ORDERED: BENZOCAINE/MENTHOL (DERMOPLAST) 56 ML CAN TP PRN (18:45)
[2021-03-05] MEDS ORDERED: WITCH HAZEL(TUCKS) 40 EA JAR TOP PRN (18:45)
[2021-03-05] MEDS: IBUPROFEN 600 MG (MOTRIN) TAB PO SCH (21:08)
[2021-03-05] MEDS: CATHETER FLUSH 10 ML SYR IV SCH ×4 (22:00→23:58)
[2021-03-05] MEDS: DOCUSATE SODIUM 100 MG (COLACE) CAP PO SCH (23:38)
[2021-03-05] MEDS: ACETAMINOPHEN 500 MG TAB (TYLENOL) PO SCH (23:39)
[2021-03-06] MEDS: IBUPROFEN 600 MG (MOTRIN) TAB PO SCH ×4 (02:44→21:11)
[2021-03-06 03:02] VITALS: BP 112/55
[2021-03-06] MEDS: ACETAMINOPHEN 500 MG TAB (TYLENOL) PO SCH ×3 (05:40→18:22)
[2021-03-06 06:04] LABS: BASOPHILS % (AUTO) 0 % (0-10); EOSINOPHILS # (AUTO) 0.1 10^3/uL (0.0-0.3); EOSINOPHILS % (AUTO) 1 % (0-10); HEMATOCRIT 28 % (35-52); HEMOGLOBIN 9.3 g/dL (11.5-16.0); LYMPHOCYTES # (AUTO) 3.1 10^3/uL (1.0-4.0); LYMPHOCYTES % (AUTO) 26 % (12-44); MEAN CORPUSCULAR HEMOGLOBIN 31 pg (25-34); MEAN CORPUSCULAR HGB CONC 33 g/dL (32-36); MEAN CORPUSCULAR VOLUME 95 fL (80-99); MEAN PLATELET VOLUME 10.9 fL (9.0-12.2); MONOCYTES # (AUTO) 0.7 10^3/uL (0.0-1.0); MONOCYTES % (AUTO) 6 % (0-12); NEUTROPHILS % (AUTO) 66 % (42-75); PLATELET COUNT 225 10^3/uL (130-400)
[2021-03-06 08:45] VITALS: BP 110/66
[2021-03-06] MEDS: DOCUSATE SODIUM 100 MG (COLACE) CAP PO SCH ×2 (08:57→21:11)
[2021-03-06 12:45] VITALS: BP 104/59
--- NOTE | 2021-03-06 14:20 | Anesthesia-Regional Post-Op ---
Regional Patient Condition Mental Status: Alert, Oriented x3 Circulation: Same as Pre-Op Headache: Absent Sensation: Full Recovery Motor Block: Absent Post Op Complications Complications Pt reports "swelling" in left leg, and feeling of heaviness. Reports she had more motor/sensory block on this side as compared to the other side while laboring. Explained to her that this could be caused by lithotomy positioning from delivery, dependant edema from not ambulating, catheter position, etc. Concerned with a transient parasthesia that occurred during JUAN placement. Explained to her that this is sometimes normal as the catheter is being advanced and not of particular concern as long as its not sustained. Spent 10-15 minutes discussing epidural with patient, she remained pleasant throughout. Pt was advised to follow up with us in 1-2 weeks if she feels as if symptoms haven't resolved or if she has any further questions she would like for us to address. Follow Up Care/Instructions Patient Instructions None needed. Anesthesia/Patient Condition Patient is doing well, stable vital signs. No complications reported per nursing. KERRY SHORT CRNA Mar 06, 2021 14:20
[2021-03-06 18:20] VITALS: BP 114/74
[2021-03-06 21:00] VITALS: BP 116/75
--- NOTE | 2021-03-06 21:14 | Postpartum Progress Note ---
Note Note Day # 1 Subjective: Patient is without complaints. Ambulating, voiding. Tolerating a regular diet without nausea or vomiting. Normal lochia. Pain is well controlled with oral pain medications. Breast feeding improving. Objective: Physical Exam: General - Alert and oriented, no apparent distress Abdomen - Soft, appropriately tender to palpation, non-distended, fundus firm at umbilicus Extremities - no edema, negative Jose's bilaterally Assessment: 26 G6 now P2 post- day # 1, status post spontaneous vaginal delivery. Uncomplicated. Recovering well, hemodynamically stable Plan: Routine care. Encourage breast feeding. Encourage ambulation. Continue PNV with Fe Plan for discharge tomorrow with 6 week f.u with [facility] Vitals - Labs Vital Signs - I&O Vital Signs Date Time Temp Pulse Resp B/P (MAP) Pulse Ox O2 Delivery O2 Flow Rate FiO2 03/06/21 18:20 36.3 72 18 114/74 (87) 99 Room Air 03/06/21 12:45 36.5 70 18 104/59 (74) 97 Room Air 03/06/21 08:45 36.4 75 18 110/66 (81) 97 Room Air 03/06/21 03:02 36.3 80 18 112/55 (74) 97 Room Air 03/05/21 23:40 36.3 67 18 116/71 (86) 99 Room Air I & O 03/06/21 07:00 Intake Total 1800 ml Balance 1800 ml Labs Laboratory Tests 03/06/21 05:22: White Blood Count 12.0H, Red Blood Count 2.98L, Hemoglobin 9.3L, Hematocrit 28L, Mean Corpuscular Volume 95, Mean Corpuscular Hemoglobin 31, Mean Corpuscular Hemoglobin Concent 33, Red Cell Distribution Width 13.5, Platelet Count 225, Mean Platelet Volume 10.9, Immature Granulocyte % (Auto) 1, Neutrophils (%) (Auto) 66, Lymphocytes (%) (Auto) 26, Monocytes (%) (Auto) 6, Eosinophils (%) (Auto) 1, Basophils (%) (Auto) 0, Neutrophils # (Auto) 8.0H, Lymphocytes # (Auto) 3.1, Monocytes # (Auto) 0.7, Eosinophils # (Auto) 0.1, Basophils # (Auto) 0.0, Immature Granulocyte # (Auto) 0.1 Microbiology 03/04/21 Urine Culture - Final, Complete Lactobacillus species ALEJANDRA SPRAGUE MD Mar 06, 2021 21:14
[2021-03-07] MEDS: ACETAMINOPHEN 500 MG TAB (TYLENOL) PO SCH ×2 (00:32→06:31)
[2021-03-07] MEDS: IBUPROFEN 600 MG (MOTRIN) TAB PO SCH ×2 (02:53→10:16)
[2021-03-07 03:04] VITALS: BP 112/69
--- NOTE | 2021-03-07 09:33 | Discharge Summary ---
Diagnosis/Chief Complaint Date of Admission Mar 04, 2021 at 19:17 Date of Discharge Discharge Summary-Simple/Stand Discharge Physical Examination Allergies: Coded Allergies: latex (Unverified Allergy, Unknown, 12/02/18) Vitals & I&Os Vital Sign - Last 12Hours Date Time Temp Pulse Resp B/P (MAP) Pulse Ox O2 Delivery O2 Flow Rate FiO2 03/07/21 03:04 36.6 58 18 112/69 (83) 99 Room Air Hospital Course See final discharge diagnosis. Discharge Instructions to patient/family Please see electronic discharge instructions given to patient. Discharge Medications Reviewed and agree with Discharge Medication list on patient's Discharge Instruction sheet ALEJANDRA SPRAGUE MD Mar 07, 2021 09:33
[2021-03-07] MEDS ORDERED: IBUP-844 PO (09:34)
--- NOTE | 2021-03-07 09:35 | Discharge Summary ---
Discharge Inst-[facility] Reconcile Patient Problems Problems Reviewed?: Yes Depart Medications New, Converted or Re-Newed RX: Transmitted to Pharmacy New Medications: Ibuprofen (Ibu) 600 Mg Tablet 600 MG PO Q6H, #90 TAB Activity Activity: Activity as Tolerated Driving Instructions: You May Drive NO SMOKING: NO SMOKING Nothing Inside Vagina: No Douching, No [place], No Tampons Diet Discharge Diet: No Restrictions Symptoms to Report to DrRiya: Bleeding Excessive, Pain Increased, Fever Over 101 Degrees F Copies To 1: ALEJANDRA SPRAGUE MD, HOLLY R MD Mar 07, 2021 09:35
[2021-03-07 10:16] VITALS: BP 120/69
[2021-03-07] MEDS: DOCUSATE SODIUM 100 MG (COLACE) CAP PO SCH (10:16)
== END 2021-03-07 11:30 | disposition home or self-care (01) | DRG 807 ==
LOC: LDRP 19:17
PROVIDERS: ADMIT Family Medicine; ATTEND Family Medicine
PROC: 10E0XZZ Delivery of Products of Conception, External Approach (ICD-10-PCS; principal; 2021-03-05)
PROC: 10907ZC Drainage of Amniotic Fluid, Therapeutic from Products of Conception, Via Natural or Artificial Opening (ICD-10-PCS; 2021-03-05)
DX: O99.354 Diseases of the nervous system complicating childbirth (principal); Z37.0 Single live birth; Z3A.39 39 weeks gestation of pregnancy; G43.909 Migraine, unspecified, not intractable, without status migrainosus; O99.62 Diseases of the digestive system complicating childbirth; K21.9 Gastro-esophageal reflux disease without esophagitis
CPT/HCPCS: 36415; 81000; 85025; 86850; 86900; 86901; 87088

== ENCOUNTER 2021-06-14 12:08 | Emergency (ER) | payer MEDICAID ==
[~2021-06-14] VITALS: Ht 157.5 cm; Wt 68.9 kg
[2021-06-14] MEDS ORDERED: KETOROLAC 30 MG/ML VIAL IVP ONE (12:30)
[2021-06-14] MEDS ORDERED: fentaNYL INJ 100 MCG/2 ML AMP IVP ONE ×2 (12:30→13:45)
[2021-06-14 12:33] LABS: BILIRUBIN,URINE NEGATIVE (NEGATIVE); CLARITY,URINE SL CLOUDY; COLOR,URINE YELLOW; GLUCOSE, URINE (UA) NEGATIVE (NEGATIVE); KETONES,URINE NEGATIVE (NEGATIVE); LEUKOCYTE ESTERASE ,URINE NEGATIVE (NEGATIVE); NITRITE,URINE NEGATIVE (NEGATIVE); PH,URINE 6.5 (5-9); PROTEIN,URINE NEGATIVE (NEGATIVE)
[2021-06-14 12:37] LABS: BASOPHILS % (AUTO) 1 % (0-10); EOSINOPHILS # (AUTO) 0.3 10^3/uL (0.0-0.3); EOSINOPHILS % (AUTO) 4 % (0-10); HEMATOCRIT 46 % (35-52); HEMOGLOBIN 15.9 g/dL (11.5-16.0); LYMPHOCYTES # (AUTO) 3.6 10^3/uL (1.0-4.0); LYMPHOCYTES % (AUTO) 44 % (12-44); MEAN CORPUSCULAR HEMOGLOBIN 31 pg (25-34); MEAN CORPUSCULAR HGB CONC 34 g/dL (32-36); MEAN CORPUSCULAR VOLUME 90 fL (80-99); MEAN PLATELET VOLUME 10.5 fL (9.0-12.2); MONOCYTES # (AUTO) 0.4 10^3/uL (0.0-1.0); MONOCYTES % (AUTO) 5 % (0-12); NEUTROPHILS # (AUTO) 3.8 10^3/uL (1.8-7.8); NEUTROPHILS % (AUTO) 47 % (42-75); PLATELET COUNT 281 10^3/uL (130-400); WHITE BLOOD COUNT 8.1 10^3/uL (4.3-11.0)
--- NOTE | 2021-06-14 12:38 | ED Abdominal Pain ---
General Stated Complaint: URINATING BLOOD,BACK PAIN Source of Information: Patient Exam Limitations: No Limitations History of Present Illness Date Seen by Provider: Jun 14, 2021 Time Seen by Provider: 12:36 Initial Comments To ER with reports of hematuria and severe suprapubic abdominal pain that waxes and wanes in intensity over the course of the past 5 days. No fevers or chills. Timing/Duration: 4-5 Days Severity/Quality: Moderate Location: Suprapubic Radiation: No Radiation Activities at Onset: None Allergies and Home Medications Allergies Coded Allergies: latex (Unverified Allergy, Unknown, 12/02/18) Patient Home Medication List Home Medication List Reviewed: Yes Ibuprofen (Ibu) 600 Mg Tablet, 600 MG PO Q6H Prescribed by: ALEJANDRA SPRAGUE on 03/07/21 0934 Naproxen (Naprosyn) 500 Mg Tablet, 500 MG PO BID PRN for PAIN-MODERATE (5-7) Prescribed by: JORGE PURCELL on 06/14/21 1309 Tamsulosin HCl (Flomax) 0.4 Mg Cap, 0.4 MG PO DAILY Prescribed by: JORGE PURCELL on 06/14/21 1309 Review of Systems Review of Systems Constitutional: see HPI EENTM: No Symptoms Reported Respiratory: No Symptoms Reported Cardiovascular: No Symptoms Reported Gastrointestinal: See HPI Genitourinary: See HPI, Hematuria, Pain Musculoskeletal: no symptoms reported Skin: no symptoms reported Psychiatric/Neurological: No Symptoms Reported Endocrine: No Symptoms Reported Hematologic/Lymphatic: No Symptoms Reported Past Voomgzh-Jbjilr-Bxyywf Hx Immunizations Up To Date Tetanus Booster (TDap): Less than 5yrs Seasonal Allergies Seasonal Allergies: No Past Medical History Surgeries: Yes Adenoidectomy, Tonsillectomy Respiratory: No Cardiac: No Neurological: No Reproductive Disorders: No 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 oz. 54.091430gv; 32.59 BMI Method:Stated General Appearance: WD/WN, no apparent distress HEENT: PERRL/EOMI, normal ENT inspection Respiratory: no respiratory distress, no accessory muscle use Gastrointestinal: normal bowel sounds, non tender, soft Extremities: normal range of motion, non-tender Neurologic/Psychiatric: alert, normal mood/affect, oriented x 3 Skin: normal color, warm/dry Progress/Results/Core Measures Results/Orders Lab Results Laboratory Tests Test 06/14/21 12:23 06/14/21 12:30 Range/Units Urine Color YELLOW Urine Clarity SL CLOUDY Urine pH 6.5 5-9 Urine Specific [place] 1.015 L 1.016-1.022 Urine Protein NEGATIVE NEGATIVE Urine Glucose (UA) NEGATIVE NEGATIVE Urine Ketones NEGATIVE NEGATIVE Urine Nitrite NEGATIVE NEGATIVE Urine Bilirubin NEGATIVE NEGATIVE Urine Urobilinogen 0.2 < = 1.0 MG/DL Urine Leukocyte Esterase NEGATIVE NEGATIVE Urine RBC (Auto) 3+ H NEGATIVE Urine RBC 25-50 H /HPF Urine WBC NONE /HPF Urine Crystals PRESENT H /LPF Urine Amorphous Sediment RARE JAMES URATES H /LPF Urine Bacteria NEGATIVE /HPF Urine Casts NONE /LPF Urine Mucus NEGATIVE /LPF Urine Culture Indicated NO White Blood Count 8.1 4.3-11.0 10^3/uL Red Blood Count 5.15 H 3.80-5.11 10^6/uL Hemoglobin 15.9 11.5-16.0 g/dL Hematocrit 46 35-52 % Mean Corpuscular Volume 90 80-99 fL Mean Corpuscular Hemoglobin 31 25-34 pg Mean Corpuscular Hemoglobin Concent 34 32-36 g/dL Red Cell Distribution Width 12.6 10.0-14.5 % Platelet Count 281 130-400 10^3/uL Mean Platelet Volume 10.5 9.0-12.2 fL Immature Granulocyte % (Auto) 0 % Neutrophils (%) (Auto) 47 42-75 % Lymphocytes (%) (Auto) 44 12-44 % Monocytes (%) (Auto) 5 0-12 % Eosinophils (%) (Auto) 4 0-10 % Basophils (%) (Auto) 1 0-10 % Neutrophils # (Auto) 3.8 1.8-7.8 10^3/uL Lymphocytes # (Auto) 3.6 1.0-4.0 10^3/uL Monocytes # (Auto) 0.4 0.0-1.0 10^3/uL Eosinophils # (Auto) 0.3 0.0-0.3 10^3/uL Basophils # (Auto) 0.0 0.0-0.1 10^3/uL Immature Granulocyte # (Auto) 0.0 0.0-0.1 10^3/uL Sodium Level 139 135-145 MMOL/L Potassium Level 4.5 3.6-5.0 MMOL/L Chloride Level 109 H 98-107 MMOL/L Carbon Dioxide Level 18 L 21-32 MMOL/L Anion Gap 12 5-14 MMOL/L Blood Urea Nitrogen 12 7-18 MG/DL Creatinine 0.77 0.60-1.30 MG/DL Estimat Glomerular Filtration Rate 91 BUN/Creatinine Ratio 16 Glucose Level 93 70-105 MG/DL Calcium Level 9.6 8.5-10.1 MG/DL Corrected Calcium 9.2 8.5-10.1 MG/DL Total Bilirubin 0.5 0.1-1.0 MG/DL Aspartate Amino Transf (AST/SGOT) 26 5-34 U/L Alanine Aminotransferase (ALT/SGPT) 52 0-55 U/L Alkaline Phosphatase 59 40-136 U/L Total Protein 7.5 6.4-8.2 GM/DL Albumin 4.5 3.2-4.5 GM/DL Serum Test, Qualitative NEGATIVE NEGATIVE My Orders Orders - JORGE PURCELL APRN Cbc With Automated Diff (06/14/21 12:27) Comprehensive Metabolic Panel (06/14/21 12:27) Ua Culture If Indicated (06/14/21 12:27) Ed Iv/Invasive Line Start (06/14/21 12:27) Ct Abd/Pelvis Wo(Kidney Stone) (06/14/21 12:27) Hcg,Qualitative Serum (06/14/21 12:27) Fentanyl Inj (Sublimaze Injection) (06/14/21 12:30) Ketorolac Injection (Toradol Injection) (06/14/21 12:30) Fentanyl Inj (Sublimaze Injection) (06/14/21 13:45) Medications Given in ED Current Medications Medications Dose Ordered Sig/Tripp Route Start Time Stop Time Status Last Admin Dose Admin Fentanyl Citrate 50 mcg ONCE ONCE IVP 06/14/21 12:30 06/14/21 12:31 DC 10/7/21 12:34 50 MCG Ketorolac Tromethamine 15 mg ONCE ONCE IVP 06/14/21 12:30 06/14/21 12:31 DC 06/14/21 12:34 15 MG Vital Signs/I&O 06/14/21 12:17 Pulse 75 Resp 18 B/P (MAP) 146/103 (117) Pulse Ox 99 O2 Delivery Room Air Departure Impression Primary Impression: Calculus of ureterovesical junction (UVJ) Disposition: HOME, SELF-CARE Condition: Stable Departure-Patient Inst. Decision time for Depature: 13:07 Referrals: ALEJANDRA SPRAGUE MD (PCP/Family) Primary Care Physician KHALIDA DORMAN MD Patient Instructions: No Instuctions Given, Kidney Stones (DC) Add. Discharge Instructions: 1. Pain medication as directed 2. Follow-up with your doctor next week 3. Follow-up with Dr. Dorman next week if you have not yet passed the stone. Scripts Tamsulosin HCl (Flomax) 0.4 Mg Cap 0.4 MG PO DAILY, #14 CAP Prov: JORGE PURCELL APRN 06/14/21 Naproxen (Naprosyn) 500 Mg Tablet 500 MG PO BID PRN for PAIN-MODERATE (5-7), #10 TAB 0 Refills Prov: JORGE PURCELL APRN 06/14/21 Work/School Note: Work Release Form Date Seen in the Emergency Department: Jun 14, 2021 Return to Work: Jun 16, 2021 JORGE PURCELL APRN Jun 14, 2021 12:38
[2021-06-14 12:45] LABS: ALBUMIN 4.5 GM/DL (3.2-4.5); POTASSIUM 4.5 MMOL/L (3.6-5.0)
[2021-06-14 12:46] LABS: CALCIUM 9.6 MG/DL (8.5-10.1)
[2021-06-14 12:47] LABS: TOTAL PROTEIN 7.5 GM/DL (6.4-8.2)
[2021-06-14 12:49] LABS: BILIRUBIN,TOTAL 0.5 MG/DL (0.1-1.0)
[2021-06-14 12:51] LABS: CREATININE SERUM 0.77 MG/DL (0.60-1.30)
[2021-06-14 13:03] LABS: AMORPHOUS SEDIMENT,UR RARE AMOR URATES /LPF; BACTERIA,URINE NEGATIVE /HPF; RBC,URINE 25-50 /HPF
[2021-06-14] MEDS ORDERED: TMSL.4C PO (13:09)
[2021-06-14] MEDS ORDERED: NAPR-1071 PO (13:09)
--- NOTE | 2021-06-14 13:18 | Diagnostic Imaging Report ---
EXAMINATION: CT abdomen and pelvis without contrast. TECHNIQUE: Multiple contiguous axial images were obtained through the abdomen and pelvis without the use of intravenous contrast. All CT scans use one or more of the following dose optimizing techniques: automated exposure control, MA and/or KvP adjustment based on patient size and exam type or iterative reconstruction. HISTORY: Suprapubic pain COMPARISON: None available. FINDINGS: Limited views of the lower thorax are unremarkable. The liver is normal without focal lesion. There is no biliary ductal dilation. Gallbladder is normal. Pancreas is normal. Spleen is normal. Adrenal glands are normal. The kidneys are normal. There is no hydronephrosis. Urinary bladder is normal. Several phleboliths in the pelvis. In addition, there is a 4 mm calcification between the cervix and the bladder. No clear fat plane is present within the ureter in the adjacent soft tissues in this location making it difficult to precisely locate where this calcification is. There is no hydroureter. Visualized bowel is normal in caliber without obstruction or inflammation. The appendix is normal. No free fluid or air. No abdominal or pelvic lymphadenopathy. Aorta is normal in caliber without aneurysm. There are no suspicious osseous lesions. IMPRESSION: 1. There is a 4 mm calcification between the cervix and the bladder in the region of the distal left ureter. There is no fat plane outlining the ureter and is difficult to determine if this is a phlebolith or ureteral stone. In the setting of hematuria it is favored to represent a ureteral stone. Dictated by: Dictated on workstation # [id number]
[2021-06-14] MEDS ORDERED: ACHD5005 PO (13:43)
[2021-06-14 13:54] VITALS: BP 108/69
== END 2021-06-14 13:54 | disposition home or self-care (01) ==
LOC: EDUNIT# 12:08 → ER 12:10
DX: N20.1 Calculus of ureter (principal)
CPT/HCPCS: 36415; 74176; 80053; 81000; 84703; 85025

== ENCOUNTER 2021-09-29 12:43 | Emergency (ER) | payer MEDICAID ==
[~2021-09-29 12:43] MED LIST changes: +ACHD5005 PO; +NAPR-1071 PO; +TMSL.4C PO
[2021-09-29 13:55] LABS: BILIRUBIN,URINE NEGATIVE (NEGATIVE); CLARITY,URINE CLEAR; COLOR,URINE AMBER; GLUCOSE, URINE (UA) NEGATIVE (NEGATIVE); KETONES,URINE 1+ (NEGATIVE); LEUKOCYTE ESTERASE ,URINE NEGATIVE (NEGATIVE); NITRITE,URINE NEGATIVE (NEGATIVE); PH,URINE 7.5 (5-9); PROTEIN,URINE TRACE (NEGATIVE)
[2021-09-29 13:56] LABS: BASOPHILS % (AUTO) 0 % (0-10); EOSINOPHILS # (AUTO) 0.1 10^3/uL (0.0-0.3); EOSINOPHILS % (AUTO) 2 % (0-10); HEMATOCRIT 45 % (35-52); HEMOGLOBIN 15.8 g/dL (11.5-16.0); LYMPHOCYTES # (AUTO) 2.2 10^3/uL (1.0-4.0); LYMPHOCYTES % (AUTO) 44 % (12-44); MEAN CORPUSCULAR HEMOGLOBIN 31 pg (25-34); MEAN CORPUSCULAR HGB CONC 35 g/dL (32-36); MEAN CORPUSCULAR VOLUME 89 fL (80-99); MEAN PLATELET VOLUME 10.3 fL (9.0-12.2); MONOCYTES # (AUTO) 0.4 10^3/uL (0.0-1.0); MONOCYTES % (AUTO) 7 % (0-12); NEUTROPHILS # (AUTO) 2.3 10^3/uL (1.8-7.8); NEUTROPHILS % (AUTO) 47 % (42-75); PLATELET COUNT 201 10^3/uL (130-400); WHITE BLOOD COUNT 4.9 10^3/uL (4.3-11.0)
[2021-09-29 14:05] LABS: POTASSIUM 3.6 MMOL/L (3.6-5.0)
[2021-09-29 14:06] LABS: CALCIUM 9.1 MG/DL (8.5-10.1)
[2021-09-29 14:08] LABS: BACTERIA,URINE TRACE /HPF; RBC,URINE 25-50 /HPF; SQUAMOUS EPITHELIAL CELL,UR RARE /HPF; WBC,URINE 0-2 /HPF
[2021-09-29 14:10] LABS: CREATININE SERUM 0.72 MG/DL (0.60-1.30)
[2021-09-29] MEDS ORDERED: LIDOCAINE TOPICAL 4% 50 ML BTL TP ONE (14:15)
[2021-09-29] MEDS ORDERED: KETOROLAC 30 MG/ML VIAL IVP ONE (14:15)
--- NOTE | 2021-09-29 14:41 | ED General ---
General Chief Complaint: COVID19 Suspect/Confirmed Stated Complaint: DIARRHEA,WEIGHT LOSS, COIVD X7 DAYS AGO Nursing Triage Note: PT AMB TO ER WITH C/O SEVERE DIARRHIA AND POSSIBLE COVID. MULTIPLE PEOPLE SHE LIVES WITH TESTED POSITIVE THIS WEEK BUT SHE WAS UNABLE TO GET AN APPT AT [facility] TO GET TESTED Source of Information: Caregiver Exam Limitations: No Limitations History of Present Illness Date Seen by Provider: Sep 29, 2021 Time Seen by Provider: 14:12 Initial Comments This is a well-appearing 26-year-old female who presented to the ER via POV with complaints of severe persistent diarrhea x7 days. States that her rectum is "on fire" and she can no longer tolerate the pain. Reports 20+ loose stools a day. States that she feels like she has lost quite a bit of weight when she looks in the mirror. Additionally states that her spouse tested positive for COVID a week ago and she also developed COVID symptoms during that time so believes that she is positive, did not test. Did not receive COVID vaccines. States that she is also having generalized abdominal pain, feels crampy in nature. She is currently on her menstrual period but thinks that she might have seen some blood in her diarrhea. States the consistency is watery liquid stool. No dark/tarry stools. States that last week she had fever, chills, but those symptoms have resolved. States that only her diarrhea has lingered. Allergies and Home Medications Allergies Coded Allergies: latex (Unverified Allergy, Unknown, 12/02/18) Patient Home Medication List Home Medication List Reviewed: Yes Hydrocodone Bit/Acetaminophen (HYDROcodone/APAP 5 MG/325 MG TAB) 1 Tab Tab, 1 TAB PO Q6H Prescribed by: SRIRAM HUDSON on 06/14/21 1344 Ibuprofen (Ibu) 600 Mg Tablet, 600 MG PO Q6H Prescribed by: ALEJANDRA SPRAGUE on 03/07/21 0934 Naproxen (Naprosyn) 500 Mg Tablet, 500 MG PO BID PRN for PAIN-MODERATE (5-7) Prescribed by: JORGE PURCELL on 06/14/21 1309 Tamsulosin HCl (Flomax) 0.4 Mg Cap, 0.4 MG PO DAILY Prescribed by: JORGE PURCELL on 06/14/21 1309 Review of Systems Review of Systems Constitutional: no symptoms reported EENTM: no symptoms reported Respiratory: no symptoms reported Cardiovascular: no symptoms reported Gastrointestinal: see HPI Genitourinary: no symptoms reported LMP: Sep 29, 2021 Musculoskeletal: no symptoms reported Skin: see HPI Psychiatric/Neurological: No Symptoms Reported Hematologic/Lymphatic: No Symptoms Reported Immunological/Allergic: no symptoms reported Past Vuuauyq-Kltotr-Gtgpkl Hx Patient Social History Tobacco Use?: Yes Tobacco type used: Cigarettes Smoking Status: Current Everyday Smoker Substance use?: Yes Substance type: Marijuana Substance frequency: Once in a while Alcohol Use?: No Pt feels they are or have been: No Immunizations Up To Date Tetanus Booster (TDap): Less than 5yrs Influenza Vaccine Up-to-Date: No; Not Current Seasonal Allergies Seasonal Allergies: No Past Medical History Surgeries: Yes Adenoidectomy, Tonsillectomy Respiratory: No Cardiac: No Neurological: No Last Menstrual Period: Sep 28, 2021 Reproductive Disorders: No Sexually Transmitted Disease: Yes (HX OF GONORRHEA) HIV/AIDS: No Genitourinary: No Gastrointestinal: No Musculoskeletal: No Endocrine: No HEENT: No Cancer: No Psychosocial: Yes Anxiety, Personality Disorder Integumentary: No Blood Disorders: No Family Medical History No Pertinent Family Hx Physical Exam Vital Signs Vital Signs - First Documented 09/29/21 13:25 Temp 36.6 Pulse 61 Resp 18 B/P (MAP) 130/98 (109) Pulse Ox 98 Capillary Refill : Less Than 3 Seconds Height, Weight, BMI Height: 5'0" Weight: 120lbs. oz. 54.604198we; 27.00 BMI Method:Stated General Appearance: No Apparent Distress, WD/WN Eyes: Bilateral Eye Normal Inspection, Bilateral Eye PERRL, Bilateral Eye EOMI HEENT: PERRL/EOMI, Normal ENT Inspection, Pharynx Normal Neck: Normal Inspection, Supple Respiratory: Lungs Clear, Normal Breath Sounds, No Accessory Muscle Use, No Respiratory Distress Cardiovascular: Regular Rate, Rhythm, No Edema, No Murmur Gastrointestinal: Soft, Abnormal Bowel Sounds (hyperactive bowel sounds ); No Distended; Tenderness (generalized ) Rectal: Tenderness Extremity: Normal Inspection, Normal Range of Motion Neurologic/Psychiatric: Alert, Oriented x3, No Motor/Sensory Deficits, Normal Mood/Affect, funds transfer clerk II-XII Norm as Tested Skin: Normal Color, Warm/Dry Progress/Results/Core Measures Suspected Sepsis SIRS Temperature: Pulse: 61 Respiratory Rate: 18 Laboratory Tests 09/29/21 13:45: White Blood Count 4.9 Blood Pressure 130 /98 Mean: 109 Laboratory Tests 09/29/21 13:45: Creatinine 0.72, Platelet Count 201 Results/Orders Lab Results Laboratory Tests Test 09/29/21 13:30 09/29/21 13:40 09/29/21 13:45 Range/Units Urine Color PHILIPPE H Urine Clarity CLEAR Urine pH 7.5 5-9 Urine Specific [place] 1.010 L 1.016-1.022 Urine Protein TRACE H NEGATIVE Urine Glucose (UA) NEGATIVE NEGATIVE Urine Ketones 1+ H NEGATIVE Urine Nitrite NEGATIVE NEGATIVE Urine Bilirubin NEGATIVE NEGATIVE Urine Urobilinogen 0.2 < = 1.0 MG/DL Urine Leukocyte Esterase NEGATIVE NEGATIVE Urine RBC (Auto) 3+ H NEGATIVE Urine RBC 25-50 H /HPF Urine WBC 0-2 /HPF Urine Squamous Epithelial Cells RARE /HPF Urine Crystals NONE /LPF Urine Bacteria TRACE /HPF Urine Casts NONE /LPF Urine Mucus NEGATIVE /LPF Urine Culture Indicated NO White Blood Count 4.9 4.3-11.0 10^3/uL Red Blood Count 5.09 3.80-5.11 10^6/uL Hemoglobin 15.8 11.5-16.0 g/dL Hematocrit 45 35-52 % Mean Corpuscular Volume 89 80-99 fL Mean Corpuscular Hemoglobin 31 25-34 pg Mean Corpuscular Hemoglobin Concent 35 32-36 g/dL Red Cell Distribution Width 12.3 10.0-14.5 % Platelet Count 201 130-400 10^3/uL Mean Platelet Volume 10.3 9.0-12.2 fL Immature Granulocyte % (Auto) 0 % Neutrophils (%) (Auto) 47 42-75 % Lymphocytes (%) (Auto) 44 12-44 % Monocytes (%) (Auto) 7 0-12 % Eosinophils (%) (Auto) 2 0-10 % Basophils (%) (Auto) 0 0-10 % Neutrophils # (Auto) 2.3 1.8-7.8 10^3/uL Lymphocytes # (Auto) 2.2 1.0-4.0 10^3/uL Monocytes # (Auto) 0.4 0.0-1.0 10^3/uL Eosinophils # (Auto) 0.1 0.0-0.3 10^3/uL Basophils # (Auto) 0.0 0.0-0.1 10^3/uL Immature Granulocyte # (Auto) 0.0 0.0-0.1 10^3/uL Sodium Level 141 135-145 MMOL/L Potassium Level 3.6 3.6-5.0 MMOL/L Chloride Level 107 98-107 MMOL/L Carbon Dioxide Level 20 L 21-32 MMOL/L Anion Gap 14 5-14 MMOL/L Blood Urea Nitrogen 10 7-18 MG/DL Creatinine 0.72 0.60-1.30 MG/DL Estimat Glomerular Filtration Rate 118 BUN/Creatinine Ratio 14 Glucose Level 86 70-105 MG/DL Calcium Level 9.1 8.5-10.1 MG/DL My Orders Orders - KEVIN BURGER DIRECTOR PUBLIC SERVICE Cbc With Automated Diff (09/29/21 13:25) Basic Metabolic Panel (09/29/21 13:25) Ua Culture If Indicated (09/29/21 13:25) Urine Bedside (09/29/21 13:25) Lidocaine 4% Topical (Xylocaine Topical (09/29/21 14:15) Ketorolac Injection (Toradol Injection) (09/29/21 14:15) Ct Abdomen/Pelvis W (09/29/21 14:34) Lactated Ringers (Lr 1000 Ml Iv Solution (09/29/21 14:45) Iohexol Injection (Omnipaque 350 Mg/Ml 1 (09/29/21 14:45) Received Contrast (Hold Metformin- Contr (09/29/21 14:45) Ns (Ivpb) (Sodium Chloride 0.9% Ivpb Bag (09/29/21 14:45) Coronavirus Sars-Cov-2 So 2018 (09/29/21 14:53) Medications Given in ED Current Medications Medications Dose Ordered Sig/Tripp Route Start Time Stop Time Status Last Admin Dose Admin Iohexol 100 ml ONCE ONCE IV 09/29/21 14:45 09/29/21 14:46 DC 09/29/21 15:50 83 ML Ketorolac Tromethamine 30 mg ONCE ONCE IVP 09/29/21 14:15 09/29/21 14:16 DC 09/29/21 14:30 30 MG Lactated Ringer's 1,000 ml @ 0 mls/hr Q0M ONCE IV 09/29/21 14:45 09/29/21 14:46 DC 09/29/21 15:29 1,000 MLS/HR Lidocaine HCl ONCE ONCE TP 09/29/21 14:15 09/29/21 14:16 DC 09/29/21 14:31 40 MG Sodium Chloride 100 ml ONCE ONCE IV 09/29/21 14:45 09/29/21 14:46 DC 09/29/21 15:51 80 ML Vital Signs/I&O 09/29/21 09/29/21 13:25 16:45 Temp 36.6 36.6 Pulse 61 64 Resp 18 17 B/P (MAP) 130/98 (109) 128/92 Pulse Ox 98 99 Capillary Refill : Less Than 3 Seconds Blood Pressure Mean: 109 Progress Note : Progress Note Patient examined and in no acute distress. We will go ahead and obtain PCR for COVID, CBC, BMP to evaluate infectious/electrolytes. Will provide topical lidocaine with barrier cream mixture for symptomatic relief. Additionally will place order for Toradol for pain. Diagnostic Imaging Diagonstic Imaging: CT Comments [facility], [place] NAME: MARICHUY ROBLERO [facility] REC#: [id number] PT STATUS: REG ER : 1995 PHYSICIAN: KEVNI BURGER APRN ADMIT DATE: 09/29/21/ER Signed Date of Exam:09/29/21 CT ABDOMEN/PELVIS W PROCEDURE: CT abdomen and pelvis with contrast. TECHNIQUE: Multiple contiguous axial images were obtained through the abdomen and pelvis after administration of intravenous contrast. Auto Exposure Controls were utilized during the CT exam to meet ALARA standards for radiation dose reduction. All CT scans use one or more of the following dose optimizing techniques: automated exposure control, MA and/or KvP adjustment based on patient size and exam type or iterative reconstruction. INDICATION: Blood in the stools as well as mid abdominal pain. COMPARISON: Prior CT from 06/14/2021. FINDINGS: Lung bases are clear. Liver and gallbladder are unremarkable. Pancreas and spleen are unremarkable. No adrenal mass is detected. Kidneys are unremarkable. Aorta is nonaneurysmal. Bowel loops are normal caliber. There is no obstruction. Appendix is unremarkable. No free fluid or fluid collection is seen. No inflammatory changes are identified. The uterus and bladder are unremarkable. IMPRESSION: No acute abnormality is detected. Dictated by: Dictated on workstation # [id number] Dict: 09/29/21 1557 Trans: 09/29/21 1614 [facility] [id number] Interpreted by: DOTTIE KIMBALL MD Electronically signed by: DOTTIE KIMBALL MD 09/29/21 1614 Reviewed: Reviewed by Me Departure Impression Primary Impression: Diarrhea Disposition: HOME, SELF-CARE Condition: Improved Departure-Patient Inst. Decision time for Depature: 16:41 Referrals: ALEJANDRA SPRAGUE MD (PCP/Family) Primary Care Physician Patient Instructions: Diarrhea, Adult ED Add. Discharge Instructions: Plan: 1. May use anti-diarrheal medication over the counter as directed. 2. Follow up with your doctor if your symptoms persist. 3. We will call you with result of COVID test. 4. Drink plenty of fluids to stay hydrated. 5. Return for any new, concerning, or worsening symptoms. All discharge instructions reviewed with patient and/or family. Voiced understanding. KEVIN BURGER DIRECTOR PUBLIC SERVICE Sep 29, 2021 14:41
[2021-09-29] MEDS ORDERED: IOHEXOL 350 MG/ML 100 ML (OMNIPAQUE 350) VIAL IV ONE (14:45)
[2021-09-29] MEDS ORDERED: HOLD METFORMIN - RECEIVED CONTRAST 20 ML VIAL IV SCH (14:45)
[2021-09-29] MEDS ORDERED: NS 100 ML (IVPB) BAG IV ONE (14:45)
[2021-09-29] MEDS ORDERED: LACTATED RINGERS 1,000 ML IV ONE (14:45)
--- NOTE | 2021-09-29 16:01 | Diagnostic Imaging Report ---
PROCEDURE: CT abdomen and pelvis with contrast. TECHNIQUE: Multiple contiguous axial images were obtained through the abdomen and pelvis after administration of intravenous contrast. Auto Exposure Controls were utilized during the CT exam to meet ALARA standards for radiation dose reduction. All CT scans use one or more of the following dose optimizing techniques: automated exposure control, MA and/or KvP adjustment based on patient size and exam type or iterative reconstruction. INDICATION: Blood in the stools as well as mid abdominal pain. COMPARISON: Prior CT from 06/14/2021. FINDINGS: Lung bases are clear. Liver and gallbladder are unremarkable. Pancreas and spleen are unremarkable. No adrenal mass is detected. Kidneys are unremarkable. Aorta is nonaneurysmal. Bowel loops are normal caliber. There is no obstruction. Appendix is unremarkable. No free fluid or fluid collection is seen. No inflammatory changes are identified. The uterus and bladder are unremarkable. IMPRESSION: No acute abnormality is detected. Dictated by: Dictated on workstation # [id number]
[2021-09-29 16:45] VITALS: BP 128/92
== END 2021-09-29 16:48 | disposition home or self-care (01) ==
LOC: EDUNIT# 12:43 → ER 12:44
DX: U07.1 COVID-19 (principal); F17.210 Nicotine dependence, cigarettes, uncomplicated
CPT/HCPCS: 36415; 74177; 80048; 81000; 84703; 85025; 87635

== ENCOUNTER 2022-05-19 21:43 | Emergency (ER) | payer MEDICAID ==
[~2022-05-19] VITALS: Ht 152.4 cm; Wt 72.0 kg
[2022-05-19] MEDS ORDERED: KETOROLAC 30 MG/ML VIAL IVP STA (21:59)
[2022-05-19] MEDS ORDERED: diphenhydrAMINE 50 MG/ML INJ (BENADRYL) IV STA (21:59)
[2022-05-19] MEDS ORDERED: PROCHLORPERAZINE 10 MG/2ML INJ (COMPAZINE) IV ONE (22:00)
[2022-05-19] MEDS ORDERED: NS IV 1000 ML 1,000 ML IV SCH (22:00)
[2022-05-19 22:14] LABS: BASOPHILS % (AUTO) 1 % (0-10); EOSINOPHILS # (AUTO) 0.4 10^3/uL (0.0-0.3); EOSINOPHILS % (AUTO) 4 % (0-10); HEMATOCRIT 44 % (35-52); HEMOGLOBIN 15.6 g/dL (11.5-16.0); LYMPHOCYTES # (AUTO) 4.4 10^3/uL (1.0-4.0); LYMPHOCYTES % (AUTO) 51 % (12-44); MEAN CORPUSCULAR HEMOGLOBIN 32 pg (25-34); MEAN CORPUSCULAR HGB CONC 36 g/dL (32-36); MEAN CORPUSCULAR VOLUME 90 fL (80-99); MEAN PLATELET VOLUME 10.3 fL (9.0-12.2); MONOCYTES # (AUTO) 0.5 10^3/uL (0.0-1.0); MONOCYTES % (AUTO) 6 % (0-12); NEUTROPHILS # (AUTO) 3.3 10^3/uL (1.8-7.8); NEUTROPHILS % (AUTO) 38 % (42-75); PLATELET COUNT 255 10^3/uL (130-400); WHITE BLOOD COUNT 8.6 10^3/uL (4.3-11.0)
[2022-05-19 22:24] LABS: ALBUMIN 4.3 GM/DL (3.2-4.5); POTASSIUM 3.6 MMOL/L (3.6-5.0)
[2022-05-19 22:25] LABS: CALCIUM 9.1 MG/DL (8.5-10.1)
[2022-05-19 22:26] LABS: TOTAL PROTEIN 6.8 GM/DL (6.4-8.2)
[2022-05-19 22:28] LABS: BILIRUBIN,TOTAL 0.6 MG/DL (0.1-1.0)
[2022-05-19 22:30] LABS: CREATININE SERUM 0.84 MG/DL (0.60-1.30)
[2022-05-19 22:38] VITALS: BP 125/82
--- NOTE | 2022-05-20 13:07 | ED Headache ---
General Chief Complaint: Head/Cervical Problems Stated Complaint: MIGRAINE Nursing Triage Note: patient states migraine since this am. states woke up with it. worst pain she has ever had. patient verbalized she took tylenol this morning. History of Present Illness Date Seen by Provider: May 19, 2022 Time Seen by Provider: 22:00 Initial Comments 27 year old female arrives by private car, stating migraine began at 0700 today, upon awaking. She took 2 Tylenol and the pain has never improved. She vomited 2-3 times, the most recent in the ED waiting room. She reports trying sleep, caffeine, and eating, with no improvement. She has migraines occassionally, but this is much more severe. She is demanding staff turn lights off and she is thrashing on the exam table. Provided towel to cover her eyes, complaints of photophobia. She had migraines for 2 weeks in March but is uncertain what she took for improvement. She is not providing much history and frustrated with questions/exam. She denies aura, but continues to have nausea. She ate dinner at 1830. Timing/Duration: other (15 hours) Severity/Quality: severe Location: frontal, occipital Prior Headaches/Recent Trauma: occasional headaches Modifying Factors: worse with exposure to light, worse with movement; improves with rest Associated Symptoms: No confusion, No fatigue, No facial pain, No fever/chills, No loss of consciousness; nausea/vomiting; No nasal congestion, No nasal drainage, No numbness in legs/feet, No seizures, No stiff neck, No vision changes, No weakness Allergies and Home Medications Allergies Coded Allergies: latex (Unverified Allergy, Unknown, 12/02/18) Patient Home Medication List Home Medication List Reviewed: Yes Hydrocodone Bit/Acetaminophen (HYDROcodone/APAP 5 MG/325 MG TAB) 1 Tab Tab, 1 TAB PO Q6H Prescribed by: SRIRAM HUDSON on 06/14/21 1344 Ibuprofen (Ibu) 600 Mg Tablet, 600 MG PO Q6H Prescribed by: ALEJANDRA MCCORMACK on 03/07/21 0934 Naproxen (Naprosyn) 500 Mg Tablet, 500 MG PO BID PRN for PAIN-MODERATE (5-7) Prescribed by: JORGE PURCELL on 06/14/21 1309 Tamsulosin HCl (Flomax) 0.4 Mg Cap, 0.4 MG PO DAILY Prescribed by: JORGE PURCELL on 06/14/21 0845 Review of Systems Review of Systems Constitutional: no symptoms reported, see HPI Gastrointestinal: see HPI; No abdominal pain, No loss of appetite; nausea, vomiting Psychiatric/Neurological: See HPI, Headache All Other Systems Reviewed Negative Unless Noted: Yes Past Knjtikh-Vieoro-Osqhcl Hx Patient Social History Tobacco Use?: No Use of E-Cig and/or Vaping dev: No Substance use?: Yes Substance type: Marijuana Additional substance use comme: three days ago Substance frequency: Daily Alcohol Use?: No Immunizations Up To Date Tetanus Booster (TDap): Less than 5yrs Seasonal Allergies Seasonal Allergies: No Past Medical History Surgeries: Yes Adenoidectomy, Tonsillectomy Respiratory: No Cardiac: No Neurological: No Reproductive Disorders: No Sexually Transmitted Disease: Yes (HX OF GONORRHEA) HIV/AIDS: No Genitourinary: No Gastrointestinal: No Musculoskeletal: No Endocrine: No HEENT: No Cancer: No Psychosocial: Yes Anxiety, Personality Disorder Integumentary: No Blood Disorders: No Family Medical History Reviewed Nursing Family Hx No Pertinent Family Hx Physical Exam Vital Signs Vital Signs - First Documented 05/19/22 22:00 Temp 36.8 Pulse 83 Resp 20 B/P (MAP) 125/93 (104) Pulse Ox 99 O2 Delivery Room Air Capillary Refill : Less Than 3 Seconds Height, Weight, BMI Height: 5'0" Weight: 120lbs. oz. 54.621008kf; 31.00 BMI Method:Stated General Appearance: WD/WN, moderate distress HEENT: PERRL/EOMI, normal ENT inspection, TMs normal, pharynx normal, photophobia Neck: non-tender, full range of motion, supple, normal inspection Cardiovascular: normal peripheral pulses, regular rate, rhythm Respiratory: chest non-tender, lungs clear, normal breath sounds Gastrointestinal: normal bowel sounds, non tender, soft Psychiatric: alert, oriented x 3 Crainal Nerves: normal hearing, normal speech, PERRL; No facial asymmetry, No facial droop, No facial paresthesias, No facial weakness Coordination/Gait: normal finger to nose, normal gait Skin: normal color, warm/dry Progress/Results/Core Measures Results/Orders Lab Results Laboratory Tests Test 05/19/22 22:00 Range/Units White Blood Count 8.6 4.3-11.0 10^3/uL Red Blood Count 4.85 3.80-5.11 10^6/uL Hemoglobin 15.6 11.5-16.0 g/dL Hematocrit 44 35-52 % Mean Corpuscular Volume 90 80-99 fL Mean Corpuscular Hemoglobin 32 25-34 pg Mean Corpuscular Hemoglobin Concent 36 32-36 g/dL Red Cell Distribution Width 12.0 10.0-14.5 % Platelet Count 255 130-400 10^3/uL Mean Platelet Volume 10.3 9.0-12.2 fL Immature Granulocyte % (Auto) 0 % Neutrophils (%) (Auto) 38 L 42-75 % Lymphocytes (%) (Auto) 51 H 12-44 % Monocytes (%) (Auto) 6 0-12 % Eosinophils (%) (Auto) 4 0-10 % Basophils (%) (Auto) 1 0-10 % Neutrophils # (Auto) 3.3 1.8-7.8 10^3/uL Lymphocytes # (Auto) 4.4 H 1.0-4.0 10^3/uL Monocytes # (Auto) 0.5 0.0-1.0 10^3/uL Eosinophils # (Auto) 0.4 H 0.0-0.3 10^3/uL Basophils # (Auto) 0.0 0.0-0.1 10^3/uL Immature Granulocyte # (Auto) 0.0 0.0-0.1 10^3/uL Sodium Level 141 135-145 MMOL/L Potassium Level 3.6 3.6-5.0 MMOL/L Chloride Level 106 98-107 MMOL/L Carbon Dioxide Level 23 21-32 MMOL/L Anion Gap 12 5-14 MMOL/L Blood Urea Nitrogen 15 7-18 MG/DL Creatinine 0.84 0.60-1.30 MG/DL Estimat Glomerular Filtration Rate 98 BUN/Creatinine Ratio 18 Glucose Level 91 70-105 MG/DL Calcium Level 9.1 8.5-10.1 MG/DL Corrected Calcium 8.9 8.5-10.1 MG/DL Total Bilirubin 0.6 0.1-1.0 MG/DL Aspartate Amino Transf (AST/SGOT) 20 5-34 U/L Alanine Aminotransferase (ALT/SGPT) 27 0-55 U/L Alkaline Phosphatase 60 40-136 U/L C-Reactive Protein High Sensitivity 0.28 0.00-0.50 MG/DL Total Protein 6.8 6.4-8.2 GM/DL Albumin 4.3 3.2-4.5 GM/DL My Orders Orders - PADMINITHAIS Cbc With Automated Diff (05/19/22 21:59) Comprehensive Metabolic Panel (05/19/22 21:59) Hs C Reactive Protein (05/19/22 21:59) Ed Iv/Invasive Line Start (05/19/22 21:59) Ns Iv 1000 Ml (Sodium Chloride 0.9%) (05/19/22 22:00) Diphenhydramine Injection (Benadryl Inje (05/19/22 21:59) Prochlorperazine Injection (Compazine In (05/19/22 22:00) Ketorolac Injection (Toradol Injection) (05/19/22 21:59) Vital Signs/I&O 05/19/22 05/19/22 22:00 22:38 Temp 36.8 36.8 Pulse 83 83 Resp 20 20 B/P (MAP) 125/93 (104) 125/82 Pulse Ox 99 98 O2 Delivery Room Air Room Air Blood Pressure Mean: 96 Progress Progress Note : Time: 22:00 Progress Note patient seen and evaluated. Stressed to patent that an exam is necessary to determine her presentation and treatment plan. Will give NS 1 L per IV, Compazine 10 mg IV; Tordayl 30 mg IV and Benadryl 25 mg IV. 2220 patient told online content coordinator, her headache has improved and "I just want to go home" 2225 spoke to patient, she reports complete resolution of symptoms (headaches, photophobia, and n/v) and requests discharge. Her is on the way to pick her up. Will let remaining IV Fluids ifnish, until he arrives. Patient agreeable and appreciative of treatment. Encouraged follow up with PCP if having increasing severity and frequency of headaches. Discharge instructions and return precautions reviewed. Departure Impression Primary Impression: Headache Qualified Codes: G44.209 - Tension-type headache, unspecified, not intractable Additional Impression: Nausea & vomiting Qualified Codes: R11.2 - Nausea with vomiting, unspecified Disposition: 01 HOME, SELF-CARE Condition: Improved Departure-Patient Inst. Decision time for Depature: 22:25 Referrals: ALEJANDRA MCCORMACK MD (PCP) Primary Care Physician Patient Instructions: Migraines (DC), Headache, Adult (DC) Add. Discharge Instructions: Follow up with Dr. Mccormack, consider CT if frequency and severity of headaches are worse. See eye doctor for yearly eye exam. Take Excedrin Migraine at onset of headache and drink 16 oz of water, then rest in quiet/dark room for 15-30 min. Return to emergency dept for new, urgent health care needs. All discharge instructions reviewed with patient and/or family. Voiced understanding. Copy Copies To 1: ALEJANDRA MCCORMACK MD, AMY ARNP May 20, 2022 13:07
== END 2022-05-19 22:38 | disposition home or self-care (01) ==
LOC: EDUNIT# 21:43 → ER 21:45
DX: R51.9 Headache, unspecified (principal); R11.2 Nausea with vomiting, unspecified; Z91.040 Latex allergy status; Z28.310 Unvaccinated for COVID-19
CPT/HCPCS: 36415; 80053; 85025; 86141

== ENCOUNTER 2022-06-27 09:37 | Emergency (ER) | payer MEDICAID ==
[~2022-06-27] VITALS: Ht 165.1 cm; Wt 72.0 kg
[2022-06-27 09:50] VITALS: BP 133/81
[2022-06-27] MEDS ORDERED: ZINC OXIDE/PETRO (SENSI-CARE) 113 GM TUBE EXT STA (10:07)
[2022-06-27] MEDS ORDERED: ONDANSETRON 4 MG (ZOFRAN) ORAL DISSOLVE TAB PO STA (10:07)
[2022-06-27] MEDS ORDERED: ONDA4TAB11 SL (10:11)
--- NOTE | 2022-06-27 10:11 | ED GI ---
General Chief Complaint: Abdominal/GI Problems Stated Complaint: DIARRHEA/STOMACH ISSUES Nursing Triage Note: FEELS JAKEE SHE MAY HAVE FOOD POISIONING FROM [employer] FROM A SANDWHICH SHE HAD LAST NIGHT. HAS BEEN HAVING DIARRHEA AND VOMITING SINCE LAST NIGHT. Source of Information: Patient Exam Limitations: No Limitations History of Present Illness Date Seen by Provider: Jun 27, 2022 Time Seen by Provider: 09:38 Initial Comments 27-year-old female with no pertinent past medical history coming in due to roughly 12 hours of nonbloody nonbilious vomiting and nonbloody diarrhea. She believes that she ate a chicken sandwich at [employer] around 4:30 PM yesterday, started vomiting around 7:30 PM. Has not vomited for roughly an hour, last diarrhea several hours ago. Denies any severe abdominal pain, chest pain, shortness of breath, fever, weakness, numbness, rash, or any other concerns. Allergies and Home Medications Allergies Coded Allergies: latex (Unverified Allergy, Unknown, 12/02/18) Patient Home Medication List Home Medication List Reviewed: Yes Hydrocodone Bit/Acetaminophen (HYDROcodone/APAP 5 MG/325 MG TAB) 1 Tab Tab, 1 TAB PO Q6H Prescribed by: SRIRAM HUDSON on 06/14/21 1344 Ibuprofen (Ibu) 600 Mg Tablet, 600 MG PO Q6H Prescribed by: ALEJANDRA SPRAGUE on 03/07/21 0934 Naproxen (Naprosyn) 500 Mg Tablet, 500 MG PO BID PRN for PAIN-MODERATE (5-7) Prescribed by: JORGE PURCELL on 06/14/21 1309 Tamsulosin HCl (Flomax) 0.4 Mg Cap, 0.4 MG PO DAILY Prescribed by: JORGE PURCELL on 06/14/21 1309 Review of Systems Review of Systems Constitutional: No fever EENTM: No Symptoms Reported Respiratory: No Symptoms Reported Cardiovascular: No Symptoms Reported Gastrointestinal: See HPI Genitourinary: No Symptoms Reported Musculoskeletal: no symptoms reported Skin: no symptoms reported Psychiatric/Neurological: No Symptoms Reported Endocrine: No Symptoms Reported Hematologic/Lymphatic: No Symptoms Reported All Other Systems Reviewed Negative Unless Noted: Yes Past Yzyinoi-Ubyowd-Ciujmo Hx Patient Social History Tobacco Use?: Yes Tobacco type used: Cigarettes Smoking Status: Current Everyday Smoker Use of E-Cig and/or Vaping dev: No Substance type: Marijuana Substance frequency: Several times a month Alcohol Use?: No Pt feels they are or have been: No Immunizations Up To Date Tetanus Booster (TDap): Less than 5yrs Seasonal Allergies Seasonal Allergies: No Past Medical History Surgeries: Yes Adenoidectomy, Tonsillectomy Respiratory: No Cardiac: No Neurological: No Reproductive Disorders: No Sexually Transmitted Disease: Yes (HX OF GONORRHEA) HIV/AIDS: No Genitourinary: No Gastrointestinal: No Musculoskeletal: No Endocrine: No HEENT: No Cancer: No Psychosocial: Yes Anxiety, Personality Disorder Integumentary: No Blood Disorders: No Family Medical History No Pertinent Family Hx Physical Exam Vital Signs Vital Signs - First Documented 06/27/22 09:50 Temp 37.0 Pulse 81 Resp 16 B/P (MAP) 133/81 (98) Pulse Ox 98 O2 Delivery Room Air Capillary Refill : Less Than 3 Seconds Height/Weight/BMI Height: 5'0" Weight: 120lbs. oz. 54.238651sh; 26.00 BMI Method:Stated General Appearance: WD/WN, no apparent distress HEENT: PERRL/EOMI, normal ENT inspection, pharynx normal Neck: non-tender, full range of motion, supple, normal inspection Respiratory: chest non-tender, lungs clear, normal breath sounds, no respiratory distress, no accessory muscle use Cardiovascular: regular rate, rhythm, no edema, no murmur Gastrointestinal: normal bowel sounds, non tender, soft; No distended, No guarding, No rebound Extremities: normal range of motion, non-tender, normal inspection, no pedal ed altagracia, no calf tenderness, normal capillary refill Back: normal inspection, no CVA tenderness Neurologic/Psychiatric: no motor/sensory deficits, alert, normal mood/affect Skin: normal color, warm/dry Lymphatic: no adenopathy Progress/Results/Core Measures Results/Orders My Orders Orders - KAYLEE GARCIA MD Lidocaine 4% Cream (Lmx 4 Cream) (06/27/22 10:15) Zinc Oxide/Petrolatum,White (Sensi-Care (06/27/22 10:07) Ondansetron Oral Dissolve Tab (Zofran (06/27/22 10:07) Vital Signs/I&O 06/27/22 09:50 Temp 37.0 Pulse 81 Resp 16 B/P (MAP) 133/81 (98) Pulse Ox 98 O2 Delivery Room Air Blood Pressure Mean: 98 Progress Progress Note : Progress Note 47-year-old female with above history coming in due to vomiting and diarrhea. ABCs were intact and vitals were stable on presentation. Physical exam reassuring including a soft and nontender abdomen. Discussed with the patient that given the vomiting started roughly 3 hours after eating, its unlikely to be E. coli. Likely could be staph versus just regular gastroenteritis or infection from somebody that she was around. Overall she is well-appearing. She also has hemorrhoids and would like something like a barrier cream to be placed on that. I believe she stable for discharge with outpatient follow-up. She was sent home with strict return precautions Departure Impression Primary Impression: Vomiting in adult Additional Impressions: Diarrhea Qualified Codes: R19.7 - Diarrhea, unspecified External hemorrhoid Disposition: HOME, SELF-CARE Condition: Stable Departure-Patient Inst. Decision time for Depature: 10:10 Referrals: ALEJANDRA SPRAGUE MD (PCP/Family) Primary Care Physician Patient Instructions: Nausea and Vomiting, Adult (DC) Add. Discharge Instructions: Take the zofran as needed for nausea. Take the immodium if needed for a lot of episodes of diarrhea. You can use the lidocaine mix for your hemorrhoid, but only use it externally. Scripts Ondansetron (Ondansetron Odt) 4 Mg Tab.rapdis 4 MG SL Q6H PRN for NAUSEA/VOMITING for 5 Days, #20 TAB Prov: KAYLEE GARCIA MD 06/27/22 Work/School Note: Work Release Form Date Seen in the Emergency Department: Jun 27, 2022 Return to Work: Jun 29, 2022 Restrictions: Return-No Vomiting(24hrs) KAYLEE GARCIA MD Jun 27, 2022 10:11
[2022-06-27] MEDS ORDERED: LIDOCAINE 4% CREAM 5 GM (LMX) TOP ONE (10:15)
[2022-06-27] MEDS ORDERED: LIDOCAINE 2% VISCOUS 15 ML UDC ONE (10:23)
[2022-06-27] MEDS ORDERED: LIDOCAINE 2% VISCOUS 15 ML UDC MM PRN (10:30)
== END 2022-06-27 10:29 | disposition home or self-care (01) ==
LOC: EDUNIT# 09:37 → ER 09:40
DX: K64.4 Residual hemorrhoidal skin tags (principal); R19.7 Diarrhea, unspecified; R11.10 Vomiting, unspecified; F17.210 Nicotine dependence, cigarettes, uncomplicated; Z91.040 Latex allergy status; Z28.310 Unvaccinated for COVID-19
CPT/HCPCS: 99283

== ENCOUNTER 2022-06-27 16:36 | Emergency (ER) | payer MEDICAID ==
[~2022-06-27] VITALS: Ht 152 cm; Wt 71.0 kg
[~2022-06-27 16:36] MED LIST changes: +ONDA4TAB11 SL
--- NOTE | 2022-06-27 17:25 | ED Abdominal Pain ---
General Chief Complaint: Abdominal/GI Problems Stated Complaint: VOMITING,DIARRHEA,ABD PAIN,FEVER Nursing Triage Note: 2ND VISIST FOR PT TODAY, REQUESTING STOOL SAMPLE FOR RECEIVING WEIGHER CO FOOD BORNE ILLNESS OUTBREAK STAFF. PT CO OF N/V/D FOR" LITTLE OVER 24HOURS" LAST EATEN AT [employer]. History of Present Illness Date Seen by Provider: Jun 27, 2022 Time Seen by Provider: 17:20 Initial Comments Patient comes back to the emergency department after being discharged earlier today for nausea, vomiting and diarrhea. States that her symptoms have gotten worse today and she is concerned that she has a food bourne illness. Thinks that she got food poisoning from a [employer] burger yesterday. Symptoms started about three hours after eating that yesterday. Denies recent sick contacts that she is aware of. Took the Zofran that was prescribed but has still been unable to keep anything down. States that she noticed a fever that started a few hours ago. Took Tylenol about two hours prior to arrival. Does report some blood in her stools. States that is from her hemorrhoids. " I am peeing out of my butt." Timing/Duration: 1 Day Severity/Quality: Moderate Location: Generalized Abdomen Radiation: No Radiation Modifying Factors: Worsens With Eating; Improves With Lying down, Improves With Resting Associated Symptoms: Fever/Chills, Nausea/Vomiting Allergies and Home Medications Allergies Coded Allergies: latex (Unverified Allergy, Unknown, 12/02/18) Patient Home Medication List Home Medication List Reviewed: Yes Hydrocodone Bit/Acetaminophen (HYDROcodone/APAP 5 MG/325 MG TAB) 1 Tab Tab, 1 TAB PO Q6H Prescribed by: SRIRAM HUDSON on 06/14/21 1344 Ibuprofen (Ibu) 600 Mg Tablet, 600 MG PO Q6H Prescribed by: ALEJANDRA SPRAGUE on 03/07/21 0934 Naproxen (Naprosyn) 500 Mg Tablet, 500 MG PO BID PRN for PAIN-MODERATE (5-7) Prescribed by: JORGE PURCELL on 06/14/21 1309 Ondansetron (Ondansetron Odt) 4 Mg Tab.rapdis, 4 MG SL Q6H PRN for NAUSEA/VOMITING Prescribed by: KAYLEE GARCIA on 06/27/22 1011 Tamsulosin HCl (Flomax) 0.4 Mg Cap, 0.4 MG PO DAILY Prescribed by: JORGE PURCELL on 06/14/21 2199 Review of Systems Review of Systems Constitutional: chills; No dizziness; fever, malaise, weakness EENTM: No Symptoms Reported Respiratory: No Symptoms Reported Cardiovascular: No Symptoms Reported Gastrointestinal: Abdominal Pain, Diarrhea, Nausea, Rectal Bleeding (from hemorrhoids), Vomiting Genitourinary: Denies Burning, Denies Frequency, Denies Urgency Musculoskeletal: no symptoms reported Skin: no symptoms reported All Other Systems Reviewed Negative Unless Noted: Yes Past Ptrlqbd-Ouocfp-Kwjxca Hx Patient Social History Tobacco Use?: Yes Tobacco type used: Cigarettes Smoking Status: Current Everyday Smoker Substance use?: Yes Substance type: Marijuana Additional substance use comme: 3 YEARS CLEAN FROM METH Substance frequency: Once in a while Alcohol Use?: No Pt feels they are or have been: No Immunizations Up To Date Tetanus Booster (TDap): Less than 5yrs Seasonal Allergies Seasonal Allergies: No Past Medical History Surgery/Hospitalization HX: T AND A, Surgeries: Yes Adenoidectomy, Tonsillectomy Respiratory: No Cardiac: No Neurological: No Last Menstrual Period: Jun 20, 2022 Reproductive Disorders: No Sexually Transmitted Disease: Yes (HX OF GONORRHEA) HIV/AIDS: No Genitourinary: No Gastrointestinal: No Musculoskeletal: No Endocrine: No HEENT: No Cancer: No Psychosocial: Yes Anxiety, Personality Disorder Integumentary: No Blood Disorders: No Family Medical History Reviewed Nursing Family Hx No Pertinent Family Hx Physical Exam Vital Signs Vital Signs - First Documented 06/27/22 06/27/22 16:50 18:59 Temp 38.9 Pulse 105 Resp 16 B/P (MAP) 114/78 (90) Pulse Ox 98 O2 Delivery Room Air Capillary Refill : Less Than 3 Seconds Height/Weight/BMI Height: 5'0" Weight: 120lbs. oz. 54.357165fl; 30.00 BMI Method:Stated General Appearance: WD/WN, no apparent distress Neck: non-tender, full range of motion, supple, normal inspection Respiratory: chest non-tender, lungs clear, normal breath sounds, no respiratory distress, no accessory muscle use Cardiovascular: regular rate, rhythm, no edema Gastrointestinal: normal bowel sounds, soft Extremities: normal range of motion, non-tender, normal inspection Neurologic/Psychiatric: alert, normal mood/affect, oriented x 3 Skin: normal color, warm/dry Focused Exam Lactate Level 06/27/22 17:38: Lactic Acid Level 1.83 Lactic Acid Level Laboratory Tests Test 06/27/22 17:38 Lactic Acid Level 1.83 MMOL/L (0.50-2.00) Progress/Results/Core Measures Results/Orders Lab Results Laboratory Tests Test 06/27/22 17:29 06/27/22 17:38 06/27/22 17:43 06/27/22 17:51 Range/Units White Blood Count 8.6 4.3-11.0 10^3/uL Red Blood Count 5.24 H 3.80-5.11 10^6/uL Hemoglobin 16.4 H 11.5-16.0 g/dL Hematocrit 47 35-52 % Mean Corpuscular Volume 91 80-99 fL Mean Corpuscular Hemoglobin 31 25-34 pg Mean Corpuscular Hemoglobin Concent 35 32-36 g/dL Red Cell Distribution Width 11.9 10.0-14.5 % Platelet Count 241 130-400 10^3/uL Mean Platelet Volume 10.7 9.0-12.2 fL Immature Granulocyte % (Auto) 0 % Neutrophils (%) (Auto) 85 H 42-75 % Lymphocytes (%) (Auto) 10 L 12-44 % Monocytes (%) (Auto) 4 0-12 % Eosinophils (%) (Auto) 0 0-10 % Basophils (%) (Auto) 0 0-10 % Neutrophils # (Auto) 7.3 1.8-7.8 10^3/uL Lymphocytes # (Auto) 0.8 L 1.0-4.0 10^3/uL Monocytes # (Auto) 0.4 0.0-1.0 10^3/uL Eosinophils # (Auto) 0.0 0.0-0.3 10^3/uL Basophils # (Auto) 0.0 0.0-0.1 10^3/uL Immature Granulocyte # (Auto) 0.0 0.0-0.1 10^3/uL Sodium Level 135 135-145 MMOL/L Potassium Level 3.7 3.6-5.0 MMOL/L Chloride Level 103 98-107 MMOL/L Carbon Dioxide Level 22 21-32 MMOL/L Anion Gap 10 5-14 MMOL/L Blood Urea Nitrogen 13 7-18 MG/DL Creatinine 0.80 0.60-1.30 MG/DL Estimat Glomerular Filtration Rate 104 BUN/Creatinine Ratio 16 Glucose Level 116 H 70-105 MG/DL Calcium Level 9.0 8.5-10.1 MG/DL Corrected Calcium 8.6 8.5-10.1 MG/DL Total Bilirubin 0.8 0.1-1.0 MG/DL Aspartate Amino Transf (AST/SGOT) 21 5-34 U/L Alanine Aminotransferase (ALT/SGPT) 29 0-55 U/L Alkaline Phosphatase 62 40-136 U/L Total Protein 7.3 6.4-8.2 GM/DL Albumin 4.5 3.2-4.5 GM/DL Lipase 11 8-78 U/L Serum Alcohol < 10 <10 MG/DL Lactic Acid Level 1.83 0.50-2.00 MMOL/L Influenza Type A (RT-PCR) Not Detected Not Detecte Influenza Type B (RT-PCR) Not Detected Not Detecte SARS-CoV-2 RNA (RT-PCR) Not Detected Not Detecte Urine Color YELLOW Urine Clarity SL CLOUDY Urine pH 6.0 5-9 Urine Specific [place] 1.025 H 1.016-1.022 Urine Protein 1+ H NEGATIVE Urine Glucose (UA) NEGATIVE NEGATIVE Urine Ketones NEGATIVE NEGATIVE Urine Nitrite NEGATIVE NEGATIVE Urine Bilirubin NEGATIVE NEGATIVE Urine Urobilinogen 0.2 < = 1.0 MG/DL Urine Leukocyte Esterase NEGATIVE NEGATIVE Urine RBC (Auto) 2+ H NEGATIVE Urine RBC 0-2 /HPF Urine WBC NONE /HPF Urine Squamous Epithelial Cells 5-10 /HPF Urine Crystals NONE /LPF Urine Bacteria MODERATE H /HPF Urine Casts NONE /LPF Urine Mucus NEGATIVE /LPF Urine Culture Indicated NO Urine Opiates Screen NEGATIVE NEGATIVE Urine Oxycodone Screen NEGATIVE NEGATIVE Urine Methadone Screen NEGATIVE NEGATIVE Urine Propoxyphene Screen NEGATIVE NEGATIVE Urine Barbiturates Screen NEGATIVE NEGATIVE Ur Tricyclic Antidepressants Screen NEGATIVE NEGATIVE Urine Phencyclidine Screen NEGATIVE NEGATIVE Urine Amphetamines Screen NEGATIVE NEGATIVE Urine Methamphetamines Screen NEGATIVE NEGATIVE Urine Benzodiazepines Screen NEGATIVE NEGATIVE Urine Cocaine Screen NEGATIVE NEGATIVE Urine Cannabinoids Screen POSITIVE H NEGATIVE My Orders Orders - FRANCI SAINZ APRN Alcohol (06/27/22 17:25) Cbc With Automated Diff (06/27/22 17:25) Comprehensive Metabolic Panel (06/27/22 17:25) Drug Screen Stat (Urine) (06/27/22 17:25) Lactic Acid Analyzer (06/27/22 17:25) Lipase (06/27/22 17:25) Ua Culture If Indicated (06/27/22:) Stool Culture (06/27/22:25) Fecal Wbc (06/27/22:25) C Difficile Ag + Toxin A/B. (06/27/22 17:25) Parasite Scrn Stool Giard Cryp (06/27/22 17:25) Parasite Complete Exam Stool (06/27/22 17:25) Rotavirus Antigen (06/27/22:25) Isolation Central Supply Req (06/27/22 17:25) Ns Iv 1000 Ml (Sodium Chloride 0.9%) (06/27/22 17:30) Ondansetron Injection (Zofran Injectio (06/27/22 17:30) Covid 19 Inhouse Test (06/27/22 17:28) Influenza A And B By Pcr (06/27/22 17:28) Isolation Central Supply Req (06/27/22 17:28) Medications Given in ED Current Medications Medications Dose Ordered Sig/Tripp Route Start Time Stop Time Status Last Admin Dose Admin Ondansetron HCl 8 mg ONCE ONCE IVP 06/27/22 17:30 06/27/22 17:31 DC 06/27/22 17:36 8 MG Vital Signs/I&O 06/27/22 06/27/22 16:50 18:59 Temp 38.9 Pulse 105 76 Resp 16 B/P (MAP) 114/78 (90) 109/79 Pulse Ox 98 100 O2 Delivery Room Air Blood Pressure Mean: 90 Progress Progress Note : Progress Note Patient back to the emergency department with continued fever, nausea, vomiting, and diarrhea. Is concerned that she had a food bourne illness. Will obtain labs and stool sample. 1840: Patient unable to provide stool sample at this time. Requesting to go home at this time without the stool sample. Reasons to return to the ER were discussed with patient. She verbalized understanding. Departure Impression Primary Impression: Gastroenteritis Disposition: 01 HOME, SELF-CARE Condition: Stable Departure-Patient Inst. Decision time for Depature: 18:49 Referrals: ALEJANDRA SPRAGUE MD (PCP/Family) Primary Care Physician Patient Instructions: Viral Gastroenteritis, Adult (DC) Add. Discharge Instructions: 1. Home and rest. 2. Push fluids. 3. Alternate Tylenol/Ibuprofen as needed for pain. 4. [place] diet and advance as tolerated. 5. Follow up with PCP as needed. 6. Continue Zofran as directed as needed. 7. Return here if worse or concerns. All discharge instructions reviewed with patient and/or family. Voiced understanding. Work/School Note: Work Release Form Date Seen in the Emergency Department: Jun 27, 2022 Return to Work: Jun 27, 2022 Restrictions: Return-No Fever (24hrs), Return-No Vomiting(24hrs) FRANCI SAINZ APRN Jun 27, 2022 17:25
[2022-06-27] MEDS ORDERED: ONDANSETRON 4 MG/2 ML (SDV) Z0FRAN IVP ONE (17:30)
[2022-06-27] MEDS ORDERED: NS IV 1000 ML 1,000 ML IV SCH (17:30)
[2022-06-27 17:45] LABS: BASOPHILS % (AUTO) 0 % (0-10); EOSINOPHILS % (AUTO) 0 % (0-10); HEMATOCRIT 47 % (35-52); HEMOGLOBIN 16.4 g/dL (11.5-16.0); LYMPHOCYTES # (AUTO) 0.8 10^3/uL (1.0-4.0); LYMPHOCYTES % (AUTO) 10 % (12-44); MEAN CORPUSCULAR HEMOGLOBIN 31 pg (25-34); MEAN CORPUSCULAR HGB CONC 35 g/dL (32-36); MEAN CORPUSCULAR VOLUME 91 fL (80-99); MEAN PLATELET VOLUME 10.7 fL (9.0-12.2); MONOCYTES # (AUTO) 0.4 10^3/uL (0.0-1.0); MONOCYTES % (AUTO) 4 % (0-12); NEUTROPHILS # (AUTO) 7.3 10^3/uL (1.8-7.8); NEUTROPHILS % (AUTO) 85 % (42-75); PLATELET COUNT 241 10^3/uL (130-400); WHITE BLOOD COUNT 8.6 10^3/uL (4.3-11.0)
[2022-06-27 17:49] LABS: ALBUMIN 4.5 GM/DL (3.2-4.5)
[2022-06-27 17:50] LABS: CHLORIDE 103 MMOL/L (98-107); POTASSIUM 3.7 MMOL/L (3.6-5.0); SODIUM 135 MMOL/L (135-145)
[2022-06-27 17:52] LABS: GLUCOSE 116 MG/DL (70-105); TOTAL PROTEIN 7.3 GM/DL (6.4-8.2)
[2022-06-27 17:53] LABS: CARBON DIOXIDE 22 MMOL/L (21-32)
[2022-06-27 17:54] LABS: BILIRUBIN,TOTAL 0.8 MG/DL (0.1-1.0)
[2022-06-27 17:55] LABS: ALKALINE PHOSPHATASE 62 U/L (40-136)
[2022-06-27 17:56] LABS: GFR ESTIMATED 104
[2022-06-27 17:57] LABS: BUN/CREATININE RATIO 16
[2022-06-27 17:59] LABS: ALANINE AMINOTRANSFERASE 29 U/L (0-55); LIPASE 11 U/L (8-78)
[2022-06-27 18:01] LABS: BILIRUBIN,URINE NEGATIVE (NEGATIVE); CLARITY,URINE SL CLOUDY; COLOR,URINE YELLOW; GLUCOSE, URINE (UA) NEGATIVE (NEGATIVE); KETONES,URINE NEGATIVE (NEGATIVE); LEUKOCYTE ESTERASE ,URINE NEGATIVE (NEGATIVE); NITRITE,URINE NEGATIVE (NEGATIVE); PROTEIN,URINE 1+ (NEGATIVE)
[2022-06-27 18:35] LABS: BACTERIA,URINE MODERATE /HPF; RBC,URINE 0-2 /HPF
[2022-06-27 18:40] LABS: AMPHETAMINE SCREEN, URINE NEGATIVE (NEGATIVE); BARBITURATE SCREEN URINE NEGATIVE (NEGATIVE); BENZODIAZEPINES SCREEN URINE NEGATIVE (NEGATIVE); CANNABINOID SCREEN, URINE POSITIVE (NEGATIVE); COCAINE SCREEN URINE NEGATIVE (NEGATIVE); METHADONE STAT NEGATIVE (NEGATIVE); OPIATE SCREEN URINE NEGATIVE (NEGATIVE); OXYCODONE STAT NEGATIVE (NEGATIVE); PROPOXYPHENE STAT NEGATIVE (NEGATIVE); TRICYCLIC ANTIDEPRESSANTS SCRE NEGATIVE (NEGATIVE)
[2022-06-27 18:59] VITALS: BP 109/79
== END 2022-06-27 18:59 | disposition home or self-care (01) ==
LOC: EDUNIT# 16:36 → ER 16:38
DX: K52.9 Noninfective gastroenteritis and colitis, unspecified (principal); F17.210 Nicotine dependence, cigarettes, uncomplicated; Z91.040 Latex allergy status; Z20.822 Contact with and (suspected) exposure to COVID-19; Z28.310 Unvaccinated for COVID-19
CPT/HCPCS: 80053; 80306; 81000; 83605; 83690; 85025; 87636; 99284; G0480; 36415; 80320

== ENCOUNTER 2023-01-11 14:35 | Emergency (ER) | payer MEDICAID ==
[~2023-01-11] VITALS: Ht 155 cm; Wt 71.2 kg
[2023-01-11 14:40] VITALS: BP 119/110
[2023-01-11] MEDS ORDERED: CLIN-144 PO (15:00)
[2023-01-11] MEDS ORDERED: OXYC1TAB87 PO (15:00)
[2023-01-11] MEDS ORDERED: oxyCODONE/APAP 5/325MG (PERCOCET 5) TABLET PO ONE (15:00)
--- NOTE | 2023-01-11 15:02 | ED EENT ---
History of Present Illness General Chief Complaint: Dental Problems/Pain Stated Complaint: ABCESS Nursing Triage Note: PT REPORT PAIN TO RIGHT UPPER MOLAR THAT STARTED AT APPROX 1000 TODAY AND IS GETTING WORSE. PT REPORTS TAKING ADVIL 2 AND NAPROXEN W/ NO RELIEF AND HAS HISTORY OF PRIOR DENTAL PAIN/ABCESS Source: patient Exam Limitations: no limitations History of Present Illness Date Seen by Provider: January 11, 2023 Time Seen by Provider: 14:47 Initial Comments This 27-year-old young lady presents to the emergency room with complaints of right upper molar pain extending into the maxillary region. She has had trouble with these teeth for many years but states she had severe pain exacerbating this morning. There is also some minor swelling. She denies fever. She took Tylenol and ibuprofen around 10:30 and naproxen about 11:00. She does not have a dentist. She knows she needs work done such as extraction or root canal but has not been able to afford the procedure. She states prior infections in these teeth have been resistant to penicillin products and Augmentin. She is tearful and in distress from the pain. Allergies and Home Medications Allergies Coded Allergies: latex (Unverified Allergy, Unknown, 12/02/18) Patient Home Medication List Home Medication List Reviewed: Yes Clindamycin HCl (Clindamycin HCl) 300 Mg Capsule, 300 MG PO QID Prescribed by: ELIUD GALVAN on 01/11/23 1500 Hydrocodone Bit/Acetaminophen (HYDROcodone/APAP 5 MG/325 MG TAB) 1 Tab Tab, 1 TAB PO Q6H Prescribed by: SRIRAM HUDSON on 06/14/21 1344 Ibuprofen (Ibu) 600 Mg Tablet, 600 MG PO Q6H Prescribed by: ALEJANDRA SPRAGUE on 03/07/21 0934 Naproxen (Naprosyn) 500 Mg Tablet, 500 MG PO BID PRN for PAIN-MODERATE (5-7) Prescribed by: JORGE PURCELL on 06/14/21 1309 Ondansetron (Ondansetron Odt) 4 Mg Tab.rapdis, 4 MG SL Q6H PRN for NAUSEA/VOMITING Prescribed by: KAYLEE GARCIA on 06/27/22 1011 Oxycodone HCl/Acetaminophen (Percocet 5-325 mg Tablet) 1 Each Tablet, 1 TAB PO Q4H PRN for PAIN BREAKTROUGH Prescribed by: ELIUD GALVAN on 01/11/23 1501 Tamsulosin HCl (Flomax) 0.4 Mg Cap, 0.4 MG PO DAILY Prescribed by: JORGE PURCELL on 06/14/21 1309 Review of Systems Review of Systems Constitutional: no symptoms reported Eyes: No Symptoms Reported Ears: No Symptoms Reported Nose: no symptoms reported Mouth: see HPI Throat: no symptoms reported Respiratory: no symptoms reported Cardiovascular: no symptoms reported Gastrointestinal: no symptoms reported Musculoskeletal: no symptoms reported Skin: no symptoms reported Neurological: No Symptoms Reported Hematologic/Lymphatic: No Symptoms Reported Immunological/Allergic: no symptoms reported Past Lxfhipx-Sbcyip-Pwgbgm Hx Patient Social History Tobacco Use?: Yes Tobacco type used: Cigarettes Smoking Status: Current Everyday Smoker Substance use?: Yes Substance type: Marijuana Substance frequency: Couple times a week Alcohol Use?: Yes Alcohol Frequency: Rarely Pt feels they are or have been: No Immunizations Up To Date Tetanus Booster (TDap): Less than 5yrs Seasonal Allergies Seasonal Allergies: No Past Medical History Surgery/Hospitalization HX: T AND A, Surgeries: Yes Adenoidectomy, Tonsillectomy Respiratory: No Cardiac: No Neurological: No Reproductive Disorders: No Sexually Transmitted Disease: Yes (HX OF GONORRHEA) HIV/AIDS: No Genitourinary: No Gastrointestinal: No Musculoskeletal: No Endocrine: No HEENT: No Cancer: No Psychosocial: Yes Anxiety, Personality Disorder Integumentary: No Blood Disorders: No Family Medical History No Pertinent Family Hx Physical Exam Vital Signs Vital Signs - First Documented 01/11/23 14:40 Temp 36.7 Pulse 86 Resp 24 B/P (MAP) 119/110 (113) Pulse Ox 98 O2 Delivery Room Air Height, Weight, BMI Height: 5'0" Weight: 120lbs. oz. 54.321090qx; 29.00 BMI Method:Stated General Appearance: WD/WN, mild distress Eyes: bilateral eye normal inspection, bilateral eye PERRL, bilateral eye EOMI Ears: bilateral ear auricle normal, bilateral ear canal normal, bilateral ear TM normal Nose: normal inspection Mouth/Throat: other (Erythema of the gingiva lateral to the posterior right upper molars with tenderness in this region. No overt abscess palpable. No purulent drainage noted. There is tenderness over the maxillary region on external palpation. No significant erythema or swelling on the cheek.) Neck: non-tender, normal inspection; No lymphadenopathy (R), No lymphadenopathy (L) Cardiovascular: regular rate, rhythm, no edema, no murmur Respiratory: lungs clear, normal breath sounds, no respiratory distress Neurologic/Psychiatric: alert, normal mood/affect, oriented x 3, other (Tearful from pain) Skin: normal color, warm/dry Progress/Results/Core Measures Results/Orders My Orders Orders - ELIUD GRAHAM MD Oxycodone/Apap 5/325mg Tablet (Percocet (01/11/23 15:00) Medications Given in ED Current Medications Medications Dose Ordered Sig/Tripp Route Start Time Stop Time Status Last Admin Dose Admin Oxycodone/ Acetaminophen 1 tab ONCE ONCE PO 01/11/23 15:00 01/11/23 15:01 DC 01/11/23 15:06 1 TAB Vital Signs/I&O 01/11/23 01/11/23 14:40 14:54 Temp 36.7 36.7 Pulse 86 86 Resp 24 24 B/P (MAP) 119/110 (113) 119/101 (107) Pulse Ox 98 98 O2 Delivery Room Air Blood Pressure Mean: 107 Progress Progress Note : Progress Note Pain was treated with Percocet. Patient was prescribed clindamycin that and Percocet. She was strongly encouraged to follow-up with a dentist or oral surgeon for definitive treatment. Departure Impression Primary Impression: Dental caries Additional Impression: Pain, dental Disposition: HOME, SELF-CARE Condition: Stable Departure-Patient Inst. Decision time for Depature: 14:57 Referrals: ALEJANDRA SPRAGUE MD (PCP/Family) Primary Care Physician Patient Instructions: Dental Pain ED Add. Discharge Instructions: You likely have a deep dental abscess causing your pain. Take clindamycin as prescribed. Follow-up with a dentist as soon as possible. Please call Friday for an appointment. Continue brushing your teeth gently twice daily with a soft bristle toothbrush. For primary pain control you should use ibuprofen up to 600 mg every 6 hours or Aleve (naproxen) up to 500 mg every 12 hours. Do not take both ibuprofen and naproxen as they are in the same class. For additional pain relief use either Tylenol (acetaminophen) 1000 mg every 6 hours as needed or Percocet (oxycodone/acetaminophen) as prescribed. Do not take both Tylenol and Percocet as they both contain acetaminophen. Return to care if you have worsening symptoms despite following these instructions, especially if you develop fever or rapidly progressing pain and swelling in the face. All discharge instructions reviewed with patient and/or family. Voiced understanding. Scripts Oxycodone HCl/Acetaminophen (Percocet 5-325 mg Tablet) 1 Each Tablet 1 TAB PO Q4H PRN for PAIN BREAKTROUGH MDD 6 TABS, #15 TAB Prov: ELIUD GRAHAM MD 01/11/23 Clindamycin HCl (Clindamycin HCl) 300 Mg Capsule 300 MG PO QID, #40 CAP Prov: ELIUD GRAHAM MD 01/11/23 Copy Copies To 1: ALEJANDRA SPRAGUE MD, JOSHUA T MD January 11, 2023 15:02
== END 2023-01-11 15:13 | disposition home or self-care (01) ==
LOC: EDUNIT# 14:35 → ER 14:37
DX: K02.9 Dental caries, unspecified (principal); F17.210 Nicotine dependence, cigarettes, uncomplicated
CPT/HCPCS: 99283

== ENCOUNTER 2023-02-11 06:49 | Emergency (ER) | payer MEDICAID ==
[~2023-02-11] VITALS: Ht 152.4 cm; Wt 74.8 kg
[~2023-02-11 06:49] MED LIST changes: +CLIN-144 PO; +OXYC1TAB87 PO
[2023-02-11 06:50] VITALS: BP 122/105
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
[2023-02-11] MEDS ORDERED: KETOROLAC 15 MG/ML VIAL IVP ONE (07:15)
[2023-02-11] MEDS ORDERED: ORPHENADRINE 60 MG/2 ML (NORFLEX) AMP (ED ONLY) IV ONE (07:15)
--- NOTE | 2023-02-11 08:43 | Diagnostic Imaging Report ---
EXAMINATION: CT cervical spine without contrast. TECHNIQUE: Multiple contiguous axial images were obtained through the cervical spine without the use of intravenous contrast. Sagittal and coronal reformations through the cervical spine were then performed. All CT scans use one or more of the following dose optimizing techniques: automated exposure control, MA and/or KvP adjustment based on patient size and exam type or iterative reconstruction. HISTORY: acute neck pain, severe after "stretching" COMPARISON: None available. FINDINGS: Vertebral body height and alignment are preserved. No acute fracture, dislocation, or destructive osseous process. No significant facet hypertrophy. No significant central canal or neuroforaminal stenosis. The paraspinous soft tissues are normal. The visualized thyroid gland is normal. The visualized lung apices are normal. IMPRESSION: 1. No acute osseous abnormality of the cervical spine. Dictated by: Dictated on workstation # [id number]
[2023-02-11] MEDS ORDERED: METH-732 PO (09:20)
[2023-02-12] MEDS ORDERED: TRM50T PO (19:15)
[2023-02-12] MEDS ORDERED: METH4TAB10 PO (19:15)
== END 2023-02-11 09:26 | disposition home or self-care (01) ==
LOC: EDUNIT# 06:49 → ER 06:50
DX: M79.18 Myalgia, other site (principal); F17.210 Nicotine dependence, cigarettes, uncomplicated; Z91.040 Latex allergy status; Z28.310 Unvaccinated for COVID-19
CPT/HCPCS: 72125; 84703

== ENCOUNTER 2023-02-12 17:45 | Emergency (ER) | payer MEDICAID ==
[~2023-02-12] VITALS: Ht 154.9 cm; Wt 75.7 kg
[~2023-02-12 17:45] MED LIST changes: +METH-732 PO
[2023-02-12] MEDS ORDERED: KETOROLAC 15 MG/ML VIAL IM ONE (18:30)
[2023-02-12] MEDS ORDERED: ORPHENADRINE 60 MG/2 ML (NORFLEX) AMP (ED ONLY) IM ONE (18:30)
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
[2023-02-12] MEDS ORDERED: METH4TAB10 PO (19:15)
[2023-02-12] MEDS ORDERED: TRM50T PO (19:15)
[2023-02-12 19:29] VITALS: BP 115/76
== END 2023-02-12 19:29 | disposition home or self-care (01) ==
LOC: EDUNIT# 17:45 → ER 17:45
DX: M54.2 Cervicalgia (principal); F17.210 Nicotine dependence, cigarettes, uncomplicated; Z91.040 Latex allergy status; Z28.310 Unvaccinated for COVID-19; X50.1XXA Overexertion from prolonged static or awkward postures, initial encounter
CPT/HCPCS: 99284

== ENCOUNTER 2023-04-07 10:19 | Emergency (ER) | payer MEDICAID ==
[~2023-04-07] VITALS: Ht 152 cm; Wt 74.8 kg
[~2023-04-07 10:19] MED LIST changes: +METH4TAB10 PO
[2023-04-07 10:52] LABS: BASOPHILS % (AUTO) 0 % (0-10); EOSINOPHILS # (AUTO) 0.2 10^3/uL (0.0-0.3); EOSINOPHILS % (AUTO) 2 % (0-10); HEMATOCRIT 45 % (35-52); HEMOGLOBIN 15.6 g/dL (11.5-16.0); LYMPHOCYTES # (AUTO) 3.1 10^3/uL (1.0-4.0); LYMPHOCYTES % (AUTO) 37 % (12-44); MEAN CORPUSCULAR HEMOGLOBIN 32 pg (25-34); MEAN CORPUSCULAR HGB CONC 35 g/dL (32-36); MEAN CORPUSCULAR VOLUME 93 fL (80-99); MEAN PLATELET VOLUME 10.3 fL (9.0-12.2); MONOCYTES # (AUTO) 0.4 10^3/uL (0.0-1.0); MONOCYTES % (AUTO) 5 % (0-12); NEUTROPHILS # (AUTO) 4.8 10^3/uL (1.8-7.8); NEUTROPHILS % (AUTO) 56 % (42-75); PLATELET COUNT 266 10^3/uL (130-400); WHITE BLOOD COUNT 8.6 10^3/uL (4.3-11.0)
[2023-04-07 10:52] LABS: BILIRUBIN,URINE NEGATIVE (NEGATIVE); CLARITY,URINE CLOUDY; COLOR,URINE YELLOW; GLUCOSE, URINE (UA) NEGATIVE (NEGATIVE); KETONES,URINE NEGATIVE (NEGATIVE); LEUKOCYTE ESTERASE ,URINE NEGATIVE (NEGATIVE); NITRITE,URINE NEGATIVE (NEGATIVE); PH,URINE 7.5 (5-9); PROTEIN,URINE TRACE (NEGATIVE)
[2023-04-07 10:57] LABS: ALBUMIN 4.4 GM/DL (3.2-4.5); POTASSIUM 3.3 MMOL/L (3.6-5.0)
[2023-04-07 10:58] LABS: CALCIUM 8.9 MG/DL (8.5-10.1)
[2023-04-07 11:00] LABS: TOTAL PROTEIN 7.2 GM/DL (6.4-8.2)
[2023-04-07 11:01] LABS: BILIRUBIN,TOTAL 0.4 MG/DL (0.1-1.0)
[2023-04-07 11:01] LABS: BACTERIA,URINE MODERATE /HPF
[2023-04-07 11:02] LABS: SQUAMOUS EPITHELIAL CELL,UR >50 /HPF
[2023-04-07 11:03] LABS: CREATININE SERUM 0.88 MG/DL (0.60-1.30)
[2023-04-07 11:22] LABS: INR 0.9 (0.8-1.4); PROTHROMBIN TIME PATIENT 12.5 SEC (12.2-14.7)
[2023-04-07 11:24] LABS: ERYTHROCYTE SEDIMENTATION RATE 1 MM/HR (0-20)
--- NOTE | 2023-04-07 11:33 | ED GU-Female ---
General Chief Complaint: Abdominal/GI Problems Stated Complaint: DIARRHEA | EARLY Nursing Triage Note: PT PRESENTS TO ED VIA POV FROM HOME WITH COMPLAINTS OF DIARRHEA, ABDOMINAL CRAMPS, AND BLOATING X 4 DAYS. REPORTS 4-5 BM TODAY. PT REPORTS SHE HAD A POSITIVE PREG TEST 1 WEEK AGO BUT UNSURE LAST LMP. Source: patient Exam Limitations: no limitations History of Present Illness Date Seen by Provider: Apr 07, 2023 Time Seen by Provider: 10:26 Initial Comments This 28-year-old 7 para 2 with history of multiple prior early miscarriages presents to the emergency room with primary complaints of diarrhea, abdominal pain, abdominal cramps, bloating, and melena for the past 4 days. She has had 4-5 bowel movements today that have been soft or runny and appear melanotic. She reports a positive test about 1 week ago. She had a Nexplanon implant removed in January and has not had a true menstrual cycle since then. She does not know her exact gestational age. She denies any fever. She describes her stools as black or greenish in color and sludgy. They have a metallic smell. This is a definite change from baseline. She has cramps and nausea with the bowel movements but has not been vomiting. She denies fever. She has been feeling jittery and shaky today. She has history of prior homelessness and drug abuse but is no steadily employed and doing very well. She has not used methamphetamine since 2019. She has not had any alcohol in the past 2 months. She previously drank heavily. She occasionally uses THC. She is working very hard to improve her overall social and health circumstances. She has not yet had had her OB intake exam with Dr. Sprague. She reports having an hCG lab of 460 at [facility] recently. 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 Allergies and Home Medications Allergies Coded Allergies: bee venom protein (honey bee) (Verified Allergy, Unknown, 01/11/23) latex (Unverified Allergy, Unknown, 12/02/18) Patient Home Medication List Home Medication List Reviewed: Yes Clindamycin HCl (Clindamycin HCl) 300 Mg Capsule, 300 MG PO QID Prescribed by: ELIUD GALVAN on 01/11/23 1500 Famotidine (Pepcid) 20 Mg Tablet, 20 MG PO BID Prescribed by: ELIUD GALVAN on 04/07/23 1300 Hydrocodone Bit/Acetaminophen (HYDROcodone/APAP 5 MG/325 MG TAB) 1 Tab Tab, 1 TAB PO Q6H Prescribed by: SRIRAM HUDSON on 06/14/21 1344 Ibuprofen (Ibu) 600 Mg Tablet, 600 MG PO Q6H Prescribed by: ALEJANDRA SPRAGUE on 03/07/21 0934 Methocarbamol (Methocarbamol) 750 Mg Tablet, 750 MG PO Q6-8HR Prescribed by: LAUREEN UNGER on 02/11/23 0920 Methylprednisolone (Methylprednisolone Dose Pack) 4 Mg Tab.ds.pk, 4 MG PO UD Prescribed by: Mari Howard on 02/12/231914 Naproxen (Naprosyn) 500 Mg Tablet, 500 MG PO BID PRN for PAIN-MODERATE (5-7) Prescribed by: JORGE PURCELL on 06/14/21 1309 Ondansetron (Ondansetron Odt) 4 Mg Tab.rapdis, 4 MG SL Q6H PRN for NAUSEA/VOMITING Prescribed by: KAYLEE GARCIA on 06/27/22 1011 Oxycodone HCl/Acetaminophen (Percocet 5-325 mg Tablet) 1 Each Tablet, 1 TAB PO Q4H PRN for PAIN BREAKTROUGH Prescribed by: ELIUD GALVAN on 01/11/23 1501 Tamsulosin HCl (Flomax) 0.4 Mg Cap, 0.4 MG PO DAILY Prescribed by: JORGE PURCELL on 06/14/21 1309 Tramadol HCl (Tramadol HCl) 50 Mg Tablet, 50 MG PO Q6H PRN for PAIN Prescribed by: Mari Howard on 02/12/231915 Review of Systems Review of Systems Constitutional: no symptoms reported EENTM: no symptoms reported Respiratory: no symptoms reported Cardiovascular: no symptoms reported Gastrointestinal: see HPI Genitourinary: see HPI : Yes Musculoskeletal: no symptoms reported Skin: no symptoms reported Psychiatric/Neurological: No Symptoms Reported Endocrine: No Symptoms Reported Hematologic/Lymphatic: No Symptoms Reported Past Kdijncj-Metssh-Xwyyry Hx Patient Social History Tobacco Use?: Yes Tobacco type used: Cigarettes Smoking Status: Current Everyday Smoker Substance use?: No Substance type: Methamphetamine (quit 2019) Alcohol Use?: No (quit January 2023) Pt feels they are or have been: No Immunizations Up To Date Tetanus Booster (TDap): Less than 5yrs First/Initial COVID19 Vaccinat: NONE Second COVID19 Vaccination Venu: NONE Third COVID19 Vaccination Date: NONE Seasonal Allergies Seasonal Allergies: No Past Medical History Surgery/Hospitalization HX: T AND A, Surgeries: Yes Adenoidectomy, Tonsillectomy Respiratory: No Cardiac: No Neurological: No Reproductive Disorders: No Sexually Transmitted Disease: Yes (HX OF GONORRHEA) HIV/AIDS: No Genitourinary: No Gastrointestinal: No Musculoskeletal: No Endocrine: No HEENT: No Cancer: No Psychosocial: Yes (prior durg and alcohol abuse) Anxiety, Personality Disorder Integumentary: No Blood Disorders: No Family Medical History No Pertinent Family Hx Physical Exam Vital Signs Vital Signs - First Documented 04/07/23 10:20 Temp 36.4 Pulse 87 Resp 16 B/P (MAP) 148/86 (106) Pulse Ox 100 Capillary Refill : Less Than 3 Seconds Height, Weight, BMI Height: 5'0" Weight: 120lbs. oz. [id number]; 32.00 BMI Method:Stated General Appearance: WD/WN, mild distress (mildly anxious) HEENT: PERRL/EOMI, normal ENT inspection Cardiovascular: regular rate, rhythm, no edema, no murmur Respiratory: lungs clear, normal breath sounds Gastrointestinal: normal bowel sounds, soft; No distended; tenderness (minimal generalized discomfort on palpation) Extremities: normal inspection, no pedal edema Neurologic/Psychiatric: no motor/sensory deficits, alert, oriented x 3, other (mildly anxious) Skin: normal color, warm/dry Progress/Results/Core Measures Suspected Sepsis SIRS Temperature: Pulse: 87 Respiratory Rate: 16 Laboratory Tests 04/07/23 10:33: White Blood Count 8.6 Blood Pressure 148 /86 Mean: 106 Laboratory Tests 04/07/23 10:33: Creatinine 0.88, INR Comment 0.9, Platelet Count 266, Total Bilirubin 0.4 Results/Orders Lab Results My Orders Vital Signs/I&O Capillary Refill : Less Than 3 Seconds Blood Pressure Mean: 106 Progress Note : Progress Note Vital signs remained stable. Labs were obtained, reviewed, and interpreted by me. CBC was unremarkable. CMP was also unremarkable. ESR and CRP were normal. Coag panel was normal. Urinalysis demonstrated only contamination. Patient was unable to produce a stool specimen. She did desire Hemoccult testing but did not want to do a digital rectal exam. An order for outpatient stool studies and occult blood testing was provided. I do have suspicion she could have an infectious gastroenteritis or colitis due to her work exposures. Given the appearance of her stools as malonic, upper GI bleed is also a consideration. She was advised to start Pepcid and follow-up closely with her primary care clinic. Ultrasound was obtained which suggested very early gestation. No abnormal findings were reported. heart tones were not detected. Follow- up was recommended. See ultrasound report below and discharge instructions for further discussion. Diagnostic Imaging Diagonstic Imaging: Ultrasound Plain Films/CT/US/NM/MRI: pelvis Comments NAME: MARICHUY ROBLERO MED REC#: [id number] PT STATUS: DEP ER : 1995 PHYSICIAN: ELIUD GRAHAM MD ADMIT DATE: 04/07/23/ER Signed Date of Exam:04/07/23 US OB<14 WKS SNGLE W/TRANSVAG INDICATION: Abdominal/pelvic pain. FINDINGS: There is an intrauterine collection with measurements corresponding to a mean gestational sac diameter of 6 weeks 1 day. An internal structure which may be a embryonic pole measuring 2.6 mm correlates with 5 weeks 6 days. No independent cardiac activity. Within the sac, there is a ring-like structure with a thickened echogenic rim which may be a yolk sac but does not have typical morphology. Viability at this time cannot be confirmed and serial beta hCG and short-term followup are recommended. The structure believed to be a gestational sac itself is also somewhat elongated and atypical in its morphology. No sandie-sac hemorrhage is evident. No extrauterine or adnexal abnormality. IMPRESSION: 1. An intrauterine collection, presumed a gestational sac, is somewhat irregular and elongated. The structure believed to be an embryonic pole at 2.6 mm did not show measurable independent cardiac activity; however, it is below size threshold for excluding viability. There is an atypical appearing yolk sac believed in this gestational sac. Given the findings, serial beta hCG and short-term followup are recommended as, at this point, viability could be neither confirmed or refuted. 2. No uterine fibroid or maternal adnexal lesion. No free fluid or extrauterine gestation. Dictated by: Dictated on workstation # [id number] Dict: 04/07/23 1230 Trans: 04/07/23 171 [id number] Interpreted by: TERA MENENDEZ Electronically signed by: TERA MENENDEZ 04/07/231710 Departure Impression Primary Impression: Early stage of Additional Impressions: Abdominal pain Qualified Codes: R10.84 - Generalized abdominal pain Melena Disposition: HOME, SELF-CARE Condition: Stable Departure-Patient Inst. Decision time for Depature: 12:05 Referrals: ALEJANDRA SPRAGUE MD (PCP/Family) Primary Care Physician Patient Instructions: Bloody Stools, Adult ED Add. Discharge Instructions: Drink plenty of clear liquids to stay well-hydrated. Start with a clear liquid diet and gradually advance your diet with small quantities of bland food as tolerated. Avoid foods that could be irritating to your bowels including dairy, fatty/greasy foods, etc. until your bowel symptoms have resolved. You have been provided an order form for stool studies please bring a fresh stool specimen back to the hospital along with this order form. For pain you may take Tylenol (acetaminophen) up to 1000 mg every 6 hours as needed, but avoid use of NSAID medications such as ibuprofen or naproxen. Use Pepcid (famotidine) as prescribed to help reduce stomach acid. The blackish appearance of your stools may indicate an upper gastrointestinal bleed. Pepcid should help with this. Ultimately, you may need endoscopy such as EGD and/or colonoscopy to determine if there is a source of bleeding. Please discuss this further with Dr. Sprague in follow-up. Please contact Dr. Sprague's office as soon as possible to arrange follow-up and to establish obstetrical care. Return to the ER if you have worsening symptoms in the meantime. All discharge instructions reviewed with patient and/or family. Voiced understanding. Scripts Famotidine (Pepcid) 20 Mg Tablet 20 MG PO BID, #60 TAB Prov: ELIUD GRAHAM MD 04/07/23 Copy Copies To 1: ALEJANDRA SPRAGUE MD, JOSHUA T MD Apr 07, 2023 11:33
--- NOTE | 2023-04-07 12:41 | Diagnostic Imaging Report ---
INDICATION: Abdominal/pelvic pain. FINDINGS: There is an intrauterine collection with measurements corresponding to a mean gestational sac diameter of 6 weeks 1 day. An internal structure which may be a embryonic pole measuring 2.6 mm correlates with 5 weeks 6 days. No independent cardiac activity. Within the sac, there is a ring-like structure with a thickened echogenic rim which may be a yolk sac but does not have typical morphology. Viability at this time cannot be confirmed and serial beta hCG and short-term followup are recommended. The structure believed to be a gestational sac itself is also somewhat elongated and atypical in its morphology. No sandie-sac hemorrhage is evident. No extrauterine or adnexal abnormality. IMPRESSION: 1. An intrauterine collection, presumed a gestational sac, is somewhat irregular and elongated. The structure believed to be an embryonic pole at 2.6 mm did not show measurable independent cardiac activity; however, it is below size threshold for excluding viability. There is an atypical appearing yolk sac believed in this gestational sac. Given the findings, serial beta hCG and short-term followup are recommended as, at this point, viability could be neither confirmed or refuted. 2. No uterine fibroid or maternal adnexal lesion. No free fluid or extrauterine gestation. Dictated by: Dictated on workstation # [id number]
[2023-04-07] MEDS ORDERED: FAMO-119 PO (13:00)
[2023-04-07 13:16] VITALS: BP 145/82
== END 2023-04-07 13:16 | disposition home or self-care (01) ==
LOC: EDUNIT# 10:19 → ER 10:21
DX: O99.619 Diseases of the digestive system complicating pregnancy, unspecified trimester (principal); K92.1 Melena; O26.899 Other specified pregnancy related conditions, unspecified trimester; R10.9 Unspecified abdominal pain; O99.330 Smoking (tobacco) complicating pregnancy, unspecified trimester; F17.210 Nicotine dependence, cigarettes, uncomplicated; Z3A.00 Weeks of gestation of pregnancy not specified; Z28.310 Unvaccinated for COVID-19; Z91.040 Latex allergy status
CPT/HCPCS: 36415; 76801; 76817; 80053; 81000; 84702; 85025; 85610; 85652; 85730; 86141

== ENCOUNTER → 2023-04-08 | Outpatient (CLI) | payer MEDICAID ==
[~2023-04-08] MED LIST changes: +FAMO-119 PO
== END ==
LOC: LAB 07:29
PROVIDERS: ATTEND Family Medicine
DX: O26.899 Other specified pregnancy related conditions, unspecified trimester (principal); K92.1 Melena; R10.9 Unspecified abdominal pain; Z3A.00 Weeks of gestation of pregnancy not specified
CPT/HCPCS: 82274; 87015; 87045; 87046; 87324; 87328; 87329; 87449; 87899

== ENCOUNTER 2023-04-13 06:29 | Emergency (ER) | payer MEDICAID ==
[~2023-04-13] VITALS: Ht 155 cm; Wt 74.8 kg
--- NOTE | 2023-04-13 06:39 | ED General ---
General Stated Complaint: PREG 5WKS & 4 DAYS,DIARRHEA Source of Information: Patient Exam Limitations: No Limitations History of Present Illness Date Seen by Provider: Apr 13, 2023 Time Seen by Provider: 06:36 Initial Comments 28-year-old female 5 weeks 4 days presents for tarry stools. Symptoms present for 2 weeks. She was seen here about a week ago and recommended to bring a stool back which she did. Outpatient study showed negative Hemoccult. She states it was not one of the stools that she was talking about and wishes her stools rechecked. She denies any fevers or chills. No abdominal pain. She states the stools felt like iron. No dizziness lightheadedness. No vaginal symptoms. All other systems reviewed and negative except documented per HPI. Voice recognition software was used to help create this chart Allergies and Home Medications Allergies Coded Allergies: bee venom protein (honey bee) (Verified Allergy, Unknown, 01/11/23) latex (Unverified Allergy, Unknown, 12/02/18) Patient Home Medication List Home Medication List Reviewed: Yes Clindamycin HCl (Clindamycin HCl) 300 Mg Capsule, 300 MG PO QID Prescribed by: ELIUD GALVAN on 01/11/23 1500 Famotidine (Pepcid) 20 Mg Tablet, 20 MG PO BID Prescribed by: ELIUD GALVAN on 04/07/23 1300 Hydrocodone Bit/Acetaminophen (HYDROcodone/APAP 5 MG/325 MG TAB) 1 Tab Tab, 1 TAB PO Q6H Prescribed by: SRIRAM HUDSON on 06/14/21 1344 Ibuprofen (Ibu) 600 Mg Tablet, 600 MG PO Q6H Prescribed by: ALEJANDRA SPRAGUE on 03/07/21 0934 Methocarbamol (Methocarbamol) 750 Mg Tablet, 750 MG PO Q6-8HR Prescribed by: LAUREEN UNGER on 02/11/23 0920 Methylprednisolone (Methylprednisolone Dose Pack) 4 Mg Tab.ds.pk, 4 MG PO UD Prescribed by: Mari Howard on 02/12/23 191 Naproxen (Naprosyn) 500 Mg Tablet, 500 MG PO BID PRN for PAIN-MODERATE (5-7) Prescribed by: JORGE PURCELL on 06/14/21 1309 Ondansetron (Ondansetron Odt) 4 Mg Tab.rapdis, 4 MG SL Q6H PRN for NAUSEA/VOMITING Prescribed by: KAYLEE GARCIA on 06/27/22 1011 Oxycodone HCl/Acetaminophen (Percocet 5-325 mg Tablet) 1 Each Tablet, 1 TAB PO Q4H PRN for PAIN BREAKTROUGH Prescribed by: ELIUD GALVAN on 01/11/23 1501 Tamsulosin HCl (Flomax) 0.4 Mg Cap, 0.4 MG PO DAILY Prescribed by: JORGE PURCELL on 06/14/21 1309 Tramadol HCl (Tramadol HCl) 50 Mg Tablet, 50 MG PO Q6H PRN for PAIN Prescribed by: Mari Howard on 02/12/23 191 Review of Systems Review of Systems Constitutional: see HPI Past Iehkpus-Kllnel-Ijqpxs Hx Patient Social History Tobacco Use?: No Use of E-Cig and/or Vaping dev: No Substance use?: No Alcohol Use?: No Immunizations Up To Date Tetanus Booster (TDap): Less than 5yrs First/Initial COVID19 Vaccinat: NONE Second COVID19 Vaccination Venu: NONE Third COVID19 Vaccination Date: NONE Seasonal Allergies Seasonal Allergies: No Past Medical History Surgery/Hospitalization HX: T AND A, Surgeries: Yes Adenoidectomy, Tonsillectomy Respiratory: No Cardiac: No Neurological: No Reproductive Disorders: No Sexually Transmitted Disease: Yes (HX OF GONORRHEA) HIV/AIDS: No Genitourinary: No Gastrointestinal: No Musculoskeletal: No Endocrine: No HEENT: No Cancer: No Psychosocial: Yes Anxiety, Personality Disorder Integumentary: No Blood Disorders: No Family Medical History No Pertinent Family Hx Physical Exam Vital Signs Vital Signs - First Documented 04/13/23 06:34 Temp 36.5 Pulse 79 Resp 18 B/P (MAP) 126/75 (92) Pulse Ox 100 O2 Delivery Room Air Capillary Refill : Height, Weight, BMI Height: 5'0" Weight: 120lbs. oz. 54.045018qa; 32.00 BMI Method:Stated General Appearance: No Apparent Distress, WD/WN Eyes: Bilateral Eye Normal Inspection, Bilateral Eye PERRL, Bilateral Eye EOMI HEENT: Normal ENT Inspection, Pharynx Normal Neck: Full Range of Motion, Normal Inspection, Non Tender, Supple Respiratory: Chest Non Tender, Lungs Clear, Normal Breath Sounds, No Accessory Muscle Use, No Respiratory Distress Gastrointestinal: Normal Bowel Sounds, No Organomegaly, Non Tender, Soft Extremity: Normal Capillary Refill, No Calf Tenderness Neurologic/Psychiatric: Alert, Oriented x3, No Motor/Sensory Deficits Skin: Normal Color, Warm/Dry Progress/Results/Core Measures Suspected Sepsis SIRS Temperature: Pulse: Respiratory Rate: Blood Pressure / Mean: Results/Orders Lab Results Laboratory Tests Test 04/13/23 06:40 Range/Units Stool Occult Blood Immunoassay POSITIVE H NEGATIVE My Orders Orders - NATALIE AGOSTO DO Occult Blood Stool (04/13/23 06:52) C Difficile Ag + Toxin A/B. (04/13/23 06:52) Vital Signs/I&O 04/13/23 06:34 Temp 36.5 Pulse 79 Resp 18 B/P (MAP) 126/75 (92) Pulse Ox 100 O2 Delivery Room Air Capillary Refill : Departure Communication (Admissions) The patient is hemodynamically stable. Her symptoms are intermittent in nature. She describes some abdominal cramping without any focal abdominal pain. She has no dizziness, lightheadedness and her vital signs are completely stable. No indication for blood work at this time. Her Hemoccult is positive here. I went ahead and sent the specimen for C. difficile given the appearance and smell. She has had no recent antibiotics or other risk factors. We will go ahead and get a culture of the stool as well. She is advised to follow-up with her primary doctor, OB doctor in the next 3 to 4 days for reevaluation and further testing if necessary. She will be called with the C. difficile and culture results. Impression Primary Impression: Blood in stool Disposition: 01 HOME, SELF-CARE Condition: Stable Departure-Patient Inst. Referrals: ALEJANDRA SPRAGUE MD (PCP/Family) Primary Care Physician Patient Instructions: Bloody Stools, Adult (DC) Add. Discharge Instructions: You do have some blood in your stool. I have sent this for further testing for C. difficile as well as a culture that should tell us if there is any bacteria causing her symptoms that would require antibiotics. Antibiotics are not indicated prior to this. I do recommend that you continue your Pepcid as previously recommended. Return to the emergency department for any severe concerns. Follow-up with your primary doctor in the next 2 to 3 days for reevaluation. TRINY,NATALIE L DO Apr 13, 2023 06:39
[2023-04-13 07:30] VITALS: BP 133/69
== END 2023-04-13 07:30 | disposition home or self-care (01) ==
LOC: EDUNIT# 06:29 → ER 06:32
DX: O99.611 Diseases of the digestive system complicating pregnancy, first trimester (principal); K92.1 Melena; Z3A.01 Less than 8 weeks gestation of pregnancy; Z91.040 Latex allergy status; Z28.310 Unvaccinated for COVID-19
CPT/HCPCS: 82274; 87015; 87045; 87046; 87324; 87449; 87899

== ENCOUNTER 2023-05-05 07:58 | Emergency (ER) | payer MEDICAID ==
[~2023-05-05] VITALS: Ht 157.4 cm; Wt 70.0 kg
--- NOTE | 2023-05-05 08:28 | ED EENT ---
History of Present Illness General Chief Complaint: Dental Problems/Pain Stated Complaint: ORAL/THROAT PAIN | 9 WEEKS Source: patient Exam Limitations: no limitations History of Present Illness Date Seen by Provider: May 05, 2023 Time Seen by Provider: 08:11 Initial Comments Patient is here with left lower jaw pain and concerns of wisdom tooth infection with pain to her throat and difficulty swallowing due to pain. She is drinking okay. Patient has had tonsils removed previously. She has known problems with her wisdom teeth. She is approximately 9 weeks currently. States that she has had this problem before and usually has clindamycin and has problems when she is with her teeth and has been on clindamycin for that previously. She has been trying acetaminophen and that is not helping the pain. Presents today for continuation of pain. This has been going on for 1 to 2 days. Timing/Duration: abrupt Severity: moderate Location: dental Prearrival Treatment: over the counter meds Associated Symptoms: No cough, No drooling, No ear drainage; facial pain/swelling; No fever; sore throat, tooth pain Allergies and Home Medications Allergies Coded Allergies: bee venom protein (honey bee) (Verified Allergy, Unknown, 01/11/23) latex (Unverified Allergy, Unknown, 12/02/18) Patient Home Medication List Home Medication List Reviewed: Yes Clindamycin HCl (Clindamycin HCl) 300 Mg Capsule, 300 MG PO QID Prescribed by: ELIUD GALVAN on 01/11/23 1500 Famotidine (Pepcid) 20 Mg Tablet, 20 MG PO BID Prescribed by: ELIUD GALVAN on 04/07/23 1300 Hydrocodone Bit/Acetaminophen (HYDROcodone/APAP 5 MG/325 MG TAB) 1 Tab Tab, 1 TAB PO Q6H Prescribed by: SRIRAM HUDSON on 06/14/21 1344 Ibuprofen (Ibu) 600 Mg Tablet, 600 MG PO Q6H Prescribed by: ALEJANDRA SPRAGUE on 03/07/21 0934 Methocarbamol (Methocarbamol) 750 Mg Tablet, 750 MG PO Q6-8HR Prescribed by: LAUREEN UNGER on 02/11/23 0920 Methylprednisolone (Methylprednisolone Dose Pack) 4 Mg Tab.ds.pk, 4 MG PO UD Prescribed by: Mari Howard on 02/12/23 1915 Naproxen (Naprosyn) 500 Mg Tablet, 500 MG PO BID PRN for PAIN-MODERATE (5-7) Prescribed by: JORGE PURCELL on 06/14/21 1309 Ondansetron (Ondansetron Odt) 4 Mg Tab.rapdis, 4 MG SL Q6H PRN for NAUSEA/VOMITING Prescribed by: KAYLEE GARCIA on 06/27/22 1011 Oxycodone HCl/Acetaminophen (Percocet 5-325 mg Tablet) 1 Each Tablet, 1 TAB PO Q4H PRN for PAIN BREAKTROUGH Prescribed by: ELIUD GALVAN on 01/11/23 1501 Tamsulosin HCl (Flomax) 0.4 Mg Cap, 0.4 MG PO DAILY Prescribed by: JORGE PURCELL on 06/14/21 1309 Tramadol HCl (Tramadol HCl) 50 Mg Tablet, 50 MG PO Q6H PRN for PAIN Prescribed by: Mari Howard on 02/12/23 191 Review of Systems Review of Systems Constitutional: see HPI; No chills, No fever Eyes: No Symptoms Reported Ears: No Symptoms Reported Nose: no symptoms reported Mouth: see HPI, pain, swelling Throat: pain; denies hoarse, denies aphonia Respiratory: No cough, No short of breath Gastrointestinal: No nausea, No vomiting Past Vcghzdu-Txktia-Wrsarq Hx Patient Social History Tobacco Use?: No Tobacco type used: Cigars Smoking Status: Current Everyday Smoker Immunizations Up To Date Tetanus Booster (TDap): Less than 5yrs First/Initial COVID19 Vaccinat: NONE Second COVID19 Vaccination Venu: NONE Third COVID19 Vaccination Date: NONE Seasonal Allergies Seasonal Allergies: No Past Medical History Surgery/Hospitalization HX: T&A Surgeries: Yes Adenoidectomy, Tonsillectomy Respiratory: No Cardiac: No Neurological: No Reproductive Disorders: No Sexually Transmitted Disease: Yes (HX OF GONORRHEA) HIV/AIDS: No Genitourinary: No Gastrointestinal: No Musculoskeletal: No Endocrine: No HEENT: No Cancer: No Psychosocial: Yes Anxiety, Personality Disorder Integumentary: No Blood Disorders: No Family Medical History Reviewed Nursing Family Hx No Pertinent Family Hx Physical Exam Height, Weight, BMI Height: 5'0" Weight: 120lbs. oz. 54.641819gd; 31.00 BMI Method:Stated General Appearance: WD/WN, no apparent distress Eyes: bilateral eye normal inspection, bilateral eye PERRL, bilateral eye EOMI Ears: bilateral ear auricle normal, bilateral ear canal normal, bilateral ear TM normal Nose: normal inspection Mouth/Throat: pharynx normal, other (Have small amount of swelling to the left lower jaw there are some irritation posterior left lower jaw in the area of the wisdom tooth without obvious abscess.) Neck: full range of motion, supple Cardiovascular: regular rate, rhythm, no murmur Neurologic/Psychiatric: alert, oriented x 3 Skin: normal color, warm/dry Progress/Results/Core Measures Results/Orders My Orders Orders - SRIRAM HUDSON MD Clindamycin Capsule (Clindamycin Capsule (05/05/23 08:30) Progress Progress Note : Progress Note Seen and evaluated. We will go ahead and initiate clindamycin 300 mg p.o. I will write for outpatient clindamycin and hydrocodone. We will also initiate chlorhexidine mouthwash. I did express importance of following up with dentist. Discharged home with return precautions. Patient verbalized understanding instructions and agreement with plan. Departure Impression Primary Impression: Dental infection Disposition: HOME, SELF-CARE Condition: Stable Departure-Patient Inst. Decision time for Depature: 08:30 Referrals: ALEJANDRA SPRAGUE MD (PCP/Family) Primary Care Physician Patient Instructions: Dental Pain ED, Tooth Abscess ED Add. Discharge Instructions: All discharge instructions reviewed with patient and/or family. Voiced understanding. Take medications as directed. You may take Tylenol/acetaminophen 1000 mg every 6-8 hours as needed for pain if you are not taking the prescribed pain medicine. Do not take both at the same time as they both have acetaminophen in them. Use mouthwash as directed. May also use topical agents such as Anbesol or Orajel per package directions. Follow-up with your doctor and dentist for recheck and further evaluation. Return for worse pain, swelling, weakness, breathing problems or other concerns as needed. Scripts Chlorhexidine Gluconate (Chlorhexidine Gluconate) 0.12 % Mouthwash 30 ML MM BID, #473 ML 0 Refills Swish in mouth for 30 seconds and then spit Prov: SRIRAM HUDSON MD 05/05/23 Hydrocodone/Acetaminophen (Hydrocodone-Acetamin 5-325 mg) 5 Mg-325 Mg Tablet 1 TAB PO Q6H PRN for PAIN-MODERATE (5-7) for 7 Days, #8 TAB 0 Refills Prov: SRIRAM HUDSON MD 05/05/23 Clindamycin HCl (Clindamycin HCl) 300 Mg Capsule 300 MG PO QID for 7 Days, #28 CAP Prov: SRIRAM HUDSON MD 05/05/23 Work/School Note: Work Release Form Date Seen in the Emergency Department: May 05, 2023 Return to Work: May 06, 2023 Restrictions: No Restrictions SRIRAM HUDSON MD May 05, 2023 08:28
[2023-05-05] MEDS ORDERED: CLINDAMYCIN 150 MG CAPSULE PO ONE (08:30)
[2023-05-05] MEDS ORDERED: CLIN-144 PO (08:33)
[2023-05-05] MEDS ORDERED: ACHD5005 PO (08:33)
[2023-05-05] MEDS ORDERED: NFCHLORHGL MM (08:33)
[2023-05-05 08:43] VITALS: BP 125/87
== END 2023-05-05 08:44 | disposition home or self-care (01) ==
LOC: EDUNIT# 07:58 → ER 08:00
DX: O99.611 Diseases of the digestive system complicating pregnancy, first trimester (principal); K04.7 Periapical abscess without sinus; O99.331 Smoking (tobacco) complicating pregnancy, first trimester; F17.290 Nicotine dependence, other tobacco product, uncomplicated; Z3A.09 9 weeks gestation of pregnancy; Z91.040 Latex allergy status
CPT/HCPCS: 99283